=== PATIENT | female | born 1960 | race Caucasian/White ===

== ENCOUNTER 2016-11-20 13:04 | Emergency (ER) | payer MEDICAID ==
[~2016-11-20] VITALS: Ht 167.6 cm; Wt 56.7 kg
[2016-11-20 13:32] VITALS: BP 186/82
== END 2016-11-20 16:46 | disposition home or self-care (01) ==
LOC: EDBD 13:04 → ER 13:04
DX: S30.1XXA Contusion of abdominal wall, initial encounter (principal); S00.212A Abrasion of left eyelid and periocular area, initial encounter; J44.9 Chronic obstructive pulmonary disease, unspecified; I10 Essential (primary) hypertension; F17.210 Nicotine dependence, cigarettes, uncomplicated; F12.10 Cannabis abuse, uncomplicated; F10.10 Alcohol abuse, uncomplicated; Y08.89XA Assault by other specified means, initial encounter; Y93.89 Activity, other specified; Y99.8 Other external cause status; Y92.89 Other specified places as the place of occurrence of the external cause
CPT/HCPCS: 70486

== ENCOUNTER 2016-11-24 22:35 | Emergency (ER) | payer MEDICAID ==
[~2016-11-24] VITALS: Ht 172.7 cm; Wt 68.0 kg
[2016-11-24 22:38] VITALS: BP 172/94
== END 2016-11-25 00:15 | disposition left against medical advice (07) ==
LOC: ER 22:43
DX: M25.552 Pain in left hip (principal); Z53.21 Procedure and treatment not carried out due to patient leaving prior to being seen by health care provider; W57.XXXA Bitten or stung by nonvenomous insect and other nonvenomous arthropods, initial encounter; Y93.89 Activity, other specified; Y92.89 Other specified places as the place of occurrence of the external cause; Y99.8 Other external cause status

== ENCOUNTER 2016-11-25 07:19 | Emergency (ER) | payer MEDICAID ==
[~2016-11-25] VITALS: Ht 170.2 cm; Wt 61.2 kg
[2016-11-25 08:05] VITALS: BP 153/90
== END 2016-11-25 09:23 | disposition home or self-care (01) ==
LOC: ER 07:19
DX: D17.9 Benign lipomatous neoplasm, unspecified (principal); J44.9 Chronic obstructive pulmonary disease, unspecified; I10 Essential (primary) hypertension; F17.210 Nicotine dependence, cigarettes, uncomplicated; F12.10 Cannabis abuse, uncomplicated

== ENCOUNTER 2017-07-08 22:49 | Emergency (ER) | payer MEDICAID ==
[~2017-07-08] VITALS: Ht 160 cm; Wt 59.0 kg
[2017-07-08 23:03] VITALS: BP 143/89
== END 2017-07-09 06:33 | disposition left against medical advice (07) ==
LOC: EDBD 22:49 → ER 22:57
DX: F29 Unspecified psychosis not due to a substance or known physiological condition (principal); Z76.0 Encounter for issue of repeat prescription; Z53.21 Procedure and treatment not carried out due to patient leaving prior to being seen by health care provider

== ENCOUNTER 2018-07-23 17:57 | Emergency (ER) | payer MEDICAID ==
[~2018-07-23] VITALS: Ht 172.7 cm; Wt 68.0 kg
[2018-07-23 19:41] LABS: Basophils # (auto) 0 uL; Basophils % (auto) 0.3 % (0.0-2.0); Eosinophils # (auto) 0.1 uL; Eosinophils % (auto) 1.7 % (0.0-7.0); Hematocrit 44.8 % (36.0-46.0); Lymphocytes # (auto) 3.6 uL; Mean Corpuscular Hemoglobin 33.1 pg (28.0-32.0); Mean Corpuscular Hgb Conc. 33.5 g/dL (32.0-36.0); Mean Corpuscular Volume 98.7 fL (80.0-100.0); Monocytes # (auto) 0.3 uL; Monocytes % (auto) 5.8 % (0.0-12.0); Neutrophils # (auto) 1.8 uL; Neutrophils % (auto) 30.7 % (37.0-80.0); Nucleated Red Blood Cells % 0.2 %; Platelet Count (auto) 297 10^3/uL (140-450); Red Blood Cells 4.54 10^6/uL (4.0-5.20); Red Cell Distribution Width 13.8 % (11.8-14.3); White Blood Cell 5.9 10^3/uL (4.4-10.8)
[2018-07-23 19:49] LABS: Albumin 3.6 g/dL (3.4-5.0); Anion Gap 8 (5-15); Blood Urea Nitrogen 8 mg/dL (7-18); Calcium 8.5 mg/dL (8.5-10.1); Carbon Dioxide 26 mmol/L (21-32); Chloride 114 mmol/L (98-107); GFR African American 96 mL/min; GFR Non-African American 79 mL/min; Glucose 99 mg/dL (74-106); Potassium 3.8 mmol/L (3.5-5.1); Sodium 148 mmol/L (136-145)
[2018-07-23 19:54] LABS: Alanine Aminotransferase 22 U/L (13-56); Alkaline Phosphatase 119 U/L (45-117); Aspartate Aminotransferase 25 U/L (15-37); Bilirubin, Total 0.1 mg/dL (0.2-1.0); Total Protein 7.3 g/dL (6.4-8.2)
[2018-07-23 19:58] LABS: Lymphocytes % (auto) 61.5 % (10.0-50.0)
[2018-07-24 06:09] LABS: Urine Bacteria MANY /hpf (None Seen); Urine Blood Negative /uL (Negative); Urine Mucus FEW (None Seen); Urine Specific Gravity 1.018 (1.001-1.035); Urine WBC 71 /hpf (0 - 5); Urine WBC Clumps PRESENT /hpf (None Seen)
[2018-07-24 06:40] LABS: Amphetamine Screen, Urine POSITIVE (NEGATIVE); Barbiturate Scree,Urine NEGATIVE (NEGATIVE); Benzodiazephine Screen, Urine NEGATIVE (NEGATIVE); Cannabinoid Screen, Urine NEGATIVE (NEGATIVE); Cocaine Screen, Urine NEGATIVE (NEGATIVE); Opiate Scree,Urine NEGATIVE (NEGATIVE); Phencyclidine Screen, Urine NEGATIVE (NEGATIVE)
[2018-07-24] MEDS ORDERED: cefTRIAXone SOD 1,000 MG VL IM ONE (07:00)
[2018-07-24] MEDS ORDERED: LIDOCAINE 1% HCL (LOCAL ANESTH.) INJ 20ML MDV ONE (07:06)
[2018-07-24 07:39] VITALS: BP 136/72
== END 2018-07-24 08:42 | disposition home or self-care (01) ==
LOC: EDBD 17:57 → EDUNIT# 17:57 → ER 18:01
DX: N39.0 Urinary tract infection, site not specified (principal); H92.01 Otalgia, right ear; Z59.0 Homelessness
CPT/HCPCS: 36415; 80053; 80307; 81001; 84484; 85025; 96372; 99283; J0696; J2001

== ENCOUNTER 2018-07-25 18:10 | Emergency (ER) | payer MEDICAID ==
[~2018-07-25] VITALS: Ht 170.2 cm; Wt 61.2 kg
[2018-07-25] MEDS ORDERED: SODIUM CHLORIDE 0.9% 1,000 ML IV ONE (20:00)
[2018-07-25 20:18] LABS: Basophils # (auto) 0 uL; Basophils % (auto) 0.9 % (0.0-2.0); Eosinophils # (auto) 0.1 uL; Eosinophils % (auto) 1.4 % (0.0-7.0); Hematocrit 45.6 % (36.0-46.0); Hemoglobin 15.3 g/dL (12.2-16.2); Lymphocytes # (auto) 2.4 uL; Lymphocytes % (auto) 45.7 % (10.0-50.0); Mean Corpuscular Hgb Conc. 33.5 g/dL (32.0-36.0); Mean Corpuscular Volume 98.4 fL (80.0-100.0); Monocytes # (auto) 0.3 uL; Monocytes % (auto) 5.8 % (0.0-12.0); Neutrophils # (auto) 2.4 uL; Neutrophils % (auto) 46.2 % (37.0-80.0); Nucleated Red Blood Cells % 0.1 %; Platelet Count (auto) 246 10^3/uL (140-450); Red Blood Cells 4.64 10^6/uL (4.0-5.20); Red Cell Distribution Width 13.4 % (11.8-14.3); White Blood Cell 5.2 10^3/uL (4.4-10.8)
[2018-07-25 20:36] LABS: Alanine Aminotransferase 26 U/L (13-56); Albumin 3.8 g/dL (3.4-5.0); Anion Gap 8 (5-15); Aspartate Aminotransferase 32 U/L (15-37); Blood Urea Nitrogen 8 mg/dL (7-18); Calcium 8.7 mg/dL (8.5-10.1); Carbon Dioxide 27 mmol/L (21-32); Chloride 110 mmol/L (98-107); Glucose 86 mg/dL (74-106); Potassium 3.3 mmol/L (3.5-5.1); Sodium 145 mmol/L (136-145)
[2018-07-25 20:42] LABS: Alkaline Phosphatase 119 U/L (45-117); BUN/Creatinine Ratio 11.9; Bilirubin, Total 0.6 mg/dL (0.2-1.0); GFR African American 118 mL/min; GFR Non-African American 97 mL/min; Total Protein 7.4 g/dL (6.4-8.2)
[2018-07-25 21:03] LABS: Salicylate 1.8 mg/dL (2.8-20.0)
[2018-07-25 21:04] LABS: Acetaminophen < 2.0 ug/mL (10-30)
[2018-07-25 21:09] LABS: Urine Bacteria NONE SEEN /hpf (None Seen); Urine Blood Negative /uL (Negative); Urine Specific Gravity 1.017 (1.001-1.035); Urine WBC 9 /hpf (0 - 5)
[2018-07-25 21:49] LABS: Amphetamine Screen, Urine POSITIVE (NEGATIVE); Barbiturate Scree,Urine NEGATIVE (NEGATIVE); Benzodiazephine Screen, Urine NEGATIVE (NEGATIVE); Cannabinoid Screen, Urine NEGATIVE (NEGATIVE); Cocaine Screen, Urine NEGATIVE (NEGATIVE); Opiate Scree,Urine NEGATIVE (NEGATIVE); Phencyclidine Screen, Urine NEGATIVE (NEGATIVE)
[2018-07-26 03:10] VITALS: BP 132/74
[2018-07-26] MEDS ORDERED: MULTIPLE VITAMIN 10 ML, MAGNESIUM SULF SDV 50% 8 MEQ in SODIUM CHLORIDE 0.9% 1,000 ML IV SCH (12:00)
== END 2018-07-26 03:11 | disposition home or self-care (01) ==
LOC: EDUNIT# 18:10 → EDBD 18:10 → ER 18:16
DX: G92 Toxic encephalopathy (principal); R41.82 Altered mental status, unspecified; F10.129 Alcohol abuse with intoxication, unspecified; Y90.6 Blood alcohol level of 120-199 mg/100 ml; F15.10 Other stimulant abuse, uncomplicated
CPT/HCPCS: 36415; 70450; 71045; 80053; 80307; 80320; 80329; 81001; 83735; 84484; 85025; 93005; 94761; 96360; 99284; J7030

== ENCOUNTER 2018-07-30 07:33 | Emergency (ER) | payer MEDICAID ==
[~2018-07-30] VITALS: Ht 172.7 cm; Wt 70.3 kg
[2018-07-30 08:07] LABS: Basophils # (auto) 0.1 uL; Basophils % (auto) 0.9 % (0.0-2.0); Eosinophils # (auto) 0 uL; Eosinophils % (auto) 0.2 % (0.0-7.0); Hematocrit 46.1 % (36.0-46.0); Hemoglobin 15.8 g/dL (12.2-16.2); Lymphocytes # (auto) 1.7 uL; Lymphocytes % (auto) 11.8 % (10.0-50.0); Mean Corpuscular Hemoglobin 33.5 pg (28.0-32.0); Mean Corpuscular Hgb Conc. 34.2 g/dL (32.0-36.0); Mean Corpuscular Volume 97.8 fL (80.0-100.0); Monocytes # (auto) 0.8 uL; Monocytes % (auto) 5.9 % (0.0-12.0); Neutrophils # (auto) 11.8 uL; Neutrophils % (auto) 81.2 % (37.0-80.0); Nucleated Red Blood Cells % 0.1 %; Platelet Count (auto) 248 10^3/uL (140-450); Red Blood Cells 4.72 10^6/uL (4.0-5.20); Red Cell Distribution Width 13.7 % (11.8-14.3); White Blood Cell 14.5 10^3/uL (4.4-10.8)
[2018-07-30 08:26] LABS: Albumin 4.2 g/dL (3.4-5.0); Amylase 19 U/L (25-115); Anion Gap 13 (5-15); Blood Urea Nitrogen 14 mg/dL (7-18); Calcium 9.8 mg/dL (8.5-10.1); Carbon Dioxide 22 mmol/L (21-32); Chloride 105 mmol/L (98-107); Glucose 102 mg/dL (74-106); Lipase 62 U/L (73-393); Potassium 3.9 mmol/L (3.5-5.1); Sodium 140 mmol/L (136-145)
[2018-07-30 08:32] LABS: Alanine Aminotransferase 19 U/L (13-56); Alkaline Phosphatase 130 U/L (45-117); Aspartate Aminotransferase 25 U/L (15-37); BUN/Creatinine Ratio 17.5; Bilirubin, Total 1.4 mg/dL (0.2-1.0); GFR African American 96 mL/min; GFR Non-African American 79 mL/min; Total Protein 8.6 g/dL (6.4-8.2)
[2018-07-30] MEDS ORDERED: cefTRIAXone SOD 1,000 MG VL IM ONE (11:30)
[2018-07-30] MEDS ORDERED: PANTOPRAZOLE 40 MG TAB PO ONE (12:30)
[2018-07-30 12:36] VITALS: BP 135/77
[2018-07-30 12:46] LABS: Urine Bacteria FEW /hpf (None Seen); Urine Blood Negative /uL (Negative); Urine Mucus FEW (None Seen); Urine Specific Gravity 1.028 (1.001-1.035); Urine WBC 1 /hpf (0 - 5)
== END 2018-07-30 13:51 | disposition home or self-care (01) ==
LOC: EDUNIT# 07:33 → EDBD 07:33 → ER 07:37
DX: J40 Bronchitis, not specified as acute or chronic (principal); K92.0 Hematemesis
CPT/HCPCS: 36415; 71046; 80053; 81001; 82150; 83690; 84484; 85025; 93005; 96372; 99284; J0696

== ENCOUNTER 2018-09-14 10:50 | Emergency (ER) | payer MEDICAID ==
[~2018-09-14] VITALS: Ht 170.2 cm; Wt 69.4 kg
[2018-09-14 11:25] VITALS: BP 132/90
[2018-09-14] MEDS ORDERED: LIDOCAINE 1% HCL (LOCAL ANESTH.) INJ 20ML MDV ONE (11:43)
[2018-09-14] MEDS ORDERED: BACITRACIN TOP OINT 1 UD PKG TOP ONE (11:45)
[2018-09-14] MEDS ORDERED: LIDOCAINE 1% (LOCAL ANESTH.) PF 5ml SDV ID ONE (11:45)
[2018-09-14] MEDS ORDERED: TETANUS-DIPTH-ACEL PERTUSSIS 0.5ML SYRG IM ONE (12:00)
== END 2018-09-14 12:38 | disposition home or self-care (01) ==
LOC: ER 10:56
DX: S61.212A Laceration without foreign body of right middle finger without damage to nail, initial encounter (principal); F17.210 Nicotine dependence, cigarettes, uncomplicated; Z59.0 Homelessness; W25.XXXA Contact with sharp glass, initial encounter; Y93.89 Activity, other specified; Y92.89 Other specified places as the place of occurrence of the external cause; Y99.8 Other external cause status
CPT/HCPCS: 12001; 73140; 90471; 90715; 99283; J2001

== ENCOUNTER 2019-01-23 12:45 | Emergency (ER) | payer MEDICAID ==
[~2019-01-23] VITALS: Ht 172.7 cm; Wt 70.3 kg
[2019-01-23 13:30] VITALS: BP 121/85
== END 2019-01-23 15:39 | disposition home or self-care (01) ==
LOC: ER 12:51
DX: S82.832D Other fracture of upper and lower end of left fibula, subsequent encounter for closed fracture with routine healing (principal); F17.210 Nicotine dependence, cigarettes, uncomplicated; Z59.0 Homelessness; X58.XXXD Exposure to other specified factors, subsequent encounter
CPT/HCPCS: 29505

== ENCOUNTER 2019-10-30 14:58 | Emergency (ER) | payer MEDICAID ==
[~2019-10-30] VITALS: Ht 172.7 cm; Wt 68.0 kg
[2019-10-30 15:03] VITALS: BP 121/75
[2019-10-30] MEDS ORDERED: SODIUM CHLORIDE 0.9% 1,000 ML IV ONE (16:45)
== END 2019-10-31 00:32 | disposition home or self-care (01) ==
LOC: EDBD 14:58 → ER 14:58
DX: E86.0 Dehydration (principal); R05 Cough
CPT/HCPCS: 70450; 74018; 93005; 96360; 99284; J7030

== ENCOUNTER 2020-01-05 05:33 | Emergency (ER) | payer MEDICAID ==
[~2020-01-05] VITALS: Ht 170.2 cm; Wt 81.6 kg
[2020-01-05 06:36] LABS: Basophils # (auto) 0.1 10 ^3/uL (0-0.2); Eosinophils # (auto) 0 10 ^3/uL (0-0.8); Eosinophils % (auto) 0.1 % (0.0-7.0); Hematocrit 38.1 % (36.0-46.0); Hemoglobin 12.9 g/dL (12.2-16.2); Lymphocytes # (auto) 1.2 10 ^3/uL (0.4-5.4); Lymphocytes % (auto) 14.4 % (10.0-50.0); Mean Corpuscular Hemoglobin 33.7 pg (28.0-32.0); Mean Corpuscular Hgb Conc. 33.7 g/dL (32.0-36.0); Mean Corpuscular Volume 99.9 fL (80.0-100.0); Monocytes # (auto) 0.9 10 ^3/uL (0-1.3); Monocytes % (auto) 11.4 % (0.0-12.0); Neutrophils # (auto) 6.1 10 ^3/uL (1.6-8.6); Neutrophils % (auto) 73.1 % (37.0-80.0); Platelet Count (auto) 216 10^3/uL (140-450); Red Blood Cells 3.81 10^6/uL (4.0-5.20); Red Cell Distribution Width 13.5 % (11.8-14.3); White Blood Cell 8.3 10^3/uL (4.4-10.8)
[2020-01-05 06:58] LABS: Potassium 3.1 mmol/L (3.5-5.1)
[2020-01-05 07:02] LABS: BUN/Creatinine Ratio 17.1; Bilirubin, Total 1.3 mg/dL (0.2-1.0); Total Protein 6.7 g/dL (6.4-8.2)
[2020-01-05] MEDS ORDERED: POTASSIUM EFFERVESENT TAB 25 MEQ PO ONE (07:45)
[2020-01-05] MEDS ORDERED: IBUPROFEN 800 MG TAB PO ONE (08:00)
[2020-01-05 09:28] VITALS: BP 115/84
== END 2020-01-05 10:02 | disposition home or self-care (01) ==
LOC: ER 05:33 → EDBD 05:33 → ER 10:02
DX: F15.10 Other stimulant abuse, uncomplicated (principal); E86.0 Dehydration; F17.210 Nicotine dependence, cigarettes, uncomplicated; Z20.828 Contact with and (suspected) exposure to other viral communicable diseases
CPT/HCPCS: 36415; 71045; 80053; 85025; 87426; 99284; C9803; U0003

== ENCOUNTER 2020-12-26 22:54 | Emergency (ER) | payer MEDICAID ==
[~2020-12-26] VITALS: Ht 175.3 cm; Wt 68.0 kg
[2020-12-26] MEDS ORDERED: SODIUM CHLORIDE 0.9% 1,000 ML IV ONE (23:45)
[2020-12-26] MEDS ORDERED: fentaNYL CITRATE 100 MCG/2 ML VL IV ONE (23:45)
[2020-12-26] MEDS ORDERED: ONDANSETRON HCL 4 MG/2 ML VIAL IV ONE (23:45)
[2020-12-27 00:09] LABS: Basophils # (auto) 0.1 10 ^3/uL (0-0.2); Nucleated Red Blood Cells % 0.1 %
[2020-12-27 00:11] LABS: Basophils % (auto) 0.8 % (0.0-2.0); Eosinophils # (auto) 0.1 10 ^3/uL (0-0.8); Hematocrit 48.6 % (36.0-46.0); Lymphocytes # (auto) 2.8 10 ^3/uL (0.4-5.4); Lymphocytes % (auto) 35.5 % (10.0-50.0); Mean Corpuscular Hemoglobin 35.5 pg (28.0-32.0); Mean Corpuscular Hgb Conc. 34.9 g/dL (32.0-36.0); Mean Corpuscular Volume 101.7 fL (80.0-100.0); Monocytes # (auto) 0.5 10 ^3/uL (0-1.3); Monocytes % (auto) 6.6 % (0.0-12.0); Neutrophils # (auto) 4.4 10 ^3/uL (1.6-8.6); Neutrophils % (auto) 56.1 % (37.0-80.0); Red Blood Cells 4.77 10^6/uL (4.0-5.20); Red Cell Distribution Width 14.7 % (11.8-14.3); White Blood Cell 7.9 10^3/uL (4.4-10.8)
[2020-12-27 00:25] LABS: Albumin 3.8 g/dL (3.4-5.0); BUN/Creatinine Ratio 16.7; Calcium 8.8 mg/dL (8.5-10.1); Potassium 3.3 mmol/L (3.5-5.1)
[2020-12-27 00:27] LABS: Bilirubin, Total 0.8 mg/dL (0.2-1.0); Total Protein 7.8 g/dL (6.4-8.2)
[2020-12-27] MEDS ORDERED: fentaNYL CITRATE 100 MCG/2 ML VL IV ONE (04:15)
[2020-12-27] MEDS ORDERED: ONDANSETRON HCL 4 MG/2 ML VIAL ONE (07:21)
[2020-12-27 07:24] VITALS: BP 128/83
[2020-12-27] MEDS ORDERED: ONDANSETRON HCL 4 MG/2 ML VIAL IV ONE (07:30)
== END 2020-12-27 08:41 | disposition home or self-care (01) ==
LOC: ER 22:54 → EDBD 22:54 → ER 12-27 08:41
DX: S82.491A Other fracture of shaft of right fibula, initial encounter for closed fracture (principal); M25.511 Pain in right shoulder; M25.521 Pain in right elbow; M79.601 Pain in right arm; F17.210 Nicotine dependence, cigarettes, uncomplicated; Z59.0 Homelessness; V89.2XXA Person injured in unspecified motor-vehicle accident, traffic, initial encounter; Y93.89 Activity, other specified; Y92.89 Other specified places as the place of occurrence of the external cause; Y99.8 Other external cause status
CPT/HCPCS: 36415; 71045; 72170; 73060; 73090; 73552; 73590; 73600; 80053; 80320; 85025; 86850; 86900; 86901; 96361; 96374; 96375; 96376; 99285; J2405; J3010; J7030

== ENCOUNTER 2021-07-18 14:40 | Emergency (ER) | payer MEDICAID ==
[~2021-07-18] VITALS: Ht 172.7 cm; Wt 90.7 kg
[2021-07-18] MEDS ORDERED: KETOROLAC TROMETH 60MG/2ML VIAL IM ONE (16:45)
[2021-07-18 19:31] VITALS: BP 143/93
[2021-07-19] MEDS ORDERED: IBUP800T27 PO (08:00)
[2021-07-19] MEDS ORDERED: MELO7.5T9 PO (08:03)
== END 2021-07-18 19:33 | disposition home or self-care (01) ==
LOC: EDBD 14:40 → ER 14:40
DX: S96.911A Strain of unspecified muscle and tendon at ankle and foot level, right foot, initial encounter (principal); F17.210 Nicotine dependence, cigarettes, uncomplicated; Z88.5 Allergy status to narcotic agent; Z88.8 Allergy status to other drugs, medicaments and biological substances; X58.XXXA Exposure to other specified factors, initial encounter; Y93.89 Activity, other specified; Y92.89 Other specified places as the place of occurrence of the external cause; Y99.8 Other external cause status
CPT/HCPCS: 96372; 99283; J1885

== ENCOUNTER 2021-07-19 05:32 | Emergency (ER) | payer MEDICAID ==
[~2021-07-19] VITALS: Ht 172.7 cm; Wt 70.8 kg
[2021-07-19 05:35] VITALS: BP 123/78
[2021-07-19] MEDS ORDERED: HYDROcodone-ACET 5/325MG TAB PO ONE (08:00)
[2021-07-19] MEDS ORDERED: IBUP800T27 PO (08:00)
[2021-07-19] MEDS ORDERED: MELO7.5T9 PO (08:03)
== END 2021-07-19 08:16 | disposition home or self-care (01) ==
LOC: ER 05:32
DX: S93.401A Sprain of unspecified ligament of right ankle, initial encounter (principal); F17.210 Nicotine dependence, cigarettes, uncomplicated; F15.10 Other stimulant abuse, uncomplicated; Z59.00 Homelessness unspecified; X58.XXXA Exposure to other specified factors, initial encounter; Y93.89 Activity, other specified; Y92.89 Other specified places as the place of occurrence of the external cause; Y99.8 Other external cause status
CPT/HCPCS: 73610

== ENCOUNTER 2022-03-21 13:19 | Inpatient (IN) | payer MEDICAID ==
[~2022-03-21] VITALS: Ht 170.2 cm; Wt 75.0 kg
[~2022-03-21 13:19] MED LIST: MELO7.5T9 PO
[2022-03-21 16:38] LABS: Basophils # (auto) 0 10 ^3/uL (0-0.2); Basophils % (auto) 0.4 % (0.0-2.0); Eosinophils # (auto) 0 10 ^3/uL (0-0.8); Eosinophils % (auto) 0.5 % (0.0-7.0); Hematocrit 50.2 % (36.0-46.0); Hemoglobin 17.3 g/dL (12.2-16.2); Lymphocytes # (auto) 1.3 10 ^3/uL (0.4-5.4); Lymphocytes % (auto) 22.2 % (10.0-50.0); Mean Corpuscular Hemoglobin 33.8 pg (28.0-32.0); Mean Corpuscular Hgb Conc. 34.3 g/dL (32.0-36.0); Mean Corpuscular Volume 98.5 fL (80.0-100.0); Monocytes # (auto) 0.4 10 ^3/uL (0-1.3); Monocytes % (auto) 7.5 % (0.0-12.0); Neutrophils # (auto) 4.1 10 ^3/uL (1.6-8.6); Neutrophils % (auto) 69.4 % (37.0-80.0); Nucleated Red Blood Cells % 0.2 %; Red Cell Distribution Width 14.6 % (11.8-14.3); White Blood Cell 5.9 10^3/uL (4.4-10.8)
[2022-03-21 16:54] LABS: Albumin 3.3 g/dL (3.4-5.0); Calcium 8.2 mg/dL (8.5-10.1); Magnesium 1.5 mg/dL (1.6-2.6); Potassium 3.1 mmol/L (3.5-5.1)
[2022-03-21 17:03] LABS: BUN/Creatinine Ratio 18.7; Bilirubin, Total 1.1 mg/dL (0.2-1.0); CRP High Sensitivity 11.8 mg/dL (< 0.3); Total Protein 6.7 g/dL (6.4-8.2)
[2022-03-21] MEDS ORDERED: ASPirin 325 MG TAB PO ONE (18:45)
[2022-03-21] MEDS ORDERED: SODIUM CHLORIDE 0.9% 500 ML IV ONE (18:45)
[2022-03-21] MEDS ORDERED: MIDAZOLAM HCL 2MG/2ML 2ml VIAL (1mg/ml) ONE (19:09)
[2022-03-21] MEDS ORDERED: SODIUM CHL 0.9% 50 ML ONE (19:09)
[2022-03-21] MEDS ORDERED: ANGIOMAX 250 MG VIAL IV ONE (19:09)
[2022-03-21] MEDS ORDERED: fentaNYL CITRATE 100 MCG/2 ML VL ONE (19:09)
[2022-03-21] MEDS ORDERED: LIDOCAINE 2%HCL (LOCAL ANESTH.) INJ 20ML MDV ONE (19:09)
[2022-03-21] MEDS ORDERED: MORPHINE SULFATE INJ 2 MG/ml SYRG IV PRN (20:00)
[2022-03-21] MEDS ORDERED: NITROGLYCERIN 0.4 MG SL TAB SL PRN (20:00)
[2022-03-21 21:56] LABS: BUN/Creatinine Ratio 16.2; Calcium 7.8 mg/dL (8.5-10.1); Potassium 3.2 mmol/L (3.5-5.1)
[2022-03-21] MEDS ORDERED: ATORVASTATIN 20 MG TAB PO SCH (22:00)
[2022-03-22 05:00] VITALS: BP 105/66
[2022-03-22] MEDS ORDERED: HYDR-4902 PO (08:09)
[2022-03-22 09:00] VITALS: BP 98/60
[2022-03-22 09:13] VITALS: BP 98/60
[2022-03-22] MEDS ORDERED: POTASSIUM CHL 20 Meq TABLET PO ONE (09:45)
[2022-03-22] MEDS ORDERED: METOPROLOL TARTRATE 25 MG TAB PO SCH (10:00)
[2022-03-22] MEDS: THIAMINE HCL 100 MG TAB PO SCH (11:34)
[2022-03-22] MEDS: MULTIPLE VITAMIN TAB PO SCH (11:36)
[2022-03-22] MEDS: PANTOPRAZOLE 40 MG TAB PO SCH (11:36)
[2022-03-22] MEDS: SODIUM CHLORIDE 0.9% 1,000 ML IV SCH ×2 (11:47→23:05)
[2022-03-22] MEDS: KETOROLAC TROMETH 30 MG/ML 1ML VIAL IV PRN (11:48)
[2022-03-22 12:30] VITALS: BP 102/70
[2022-03-22] MEDS: traMADol HCL 50 MG TAB PO PRN (16:18)
[2022-03-22 17:00] VITALS: BP 91/63
[2022-03-22 19:52] LABS: Urine Bacteria MOD /hpf (None Seen); Urine Blood TRACE /uL (Negative); Urine Hyaline Cast FEW /lpf (0 - 2); Urine Mucus FEW (None Seen); Urine Specific Gravity 1.031 (1.001-1.035); Urine WBC 85 /hpf (0 - 5)
[2022-03-22 19:55] LABS: Alcohol, Urine < 3.0 mg/dL (0-10); Amphetamine Screen, Urine POSITIVE (NEGATIVE); Barbiturate Scree,Urine NEGATIVE (NEGATIVE); Benzodiazephine Screen, Urine POSITIVE (NEGATIVE); Cannabinoid Screen, Urine NEGATIVE (NEGATIVE); Cocaine Screen, Urine NEGATIVE (NEGATIVE); Opiate Scree,Urine NEGATIVE (NEGATIVE); Phencyclidine Screen, Urine NEGATIVE (NEGATIVE)
[2022-03-22 21:19] VITALS: BP 105/71
[2022-03-23 04:26] VITALS: BP 93/54
[2022-03-23 05:11] LABS: Basophils # (auto) 0 10 ^3/uL (0-0.2); Basophils % (auto) 0.4 % (0.0-2.0); Eosinophils # (auto) 0.1 10 ^3/uL (0-0.8); Eosinophils % (auto) 1.3 % (0.0-7.0); Hematocrit 41.3 % (36.0-46.0); Hemoglobin 13.9 g/dL (12.2-16.2); Lymphocytes # (auto) 1.9 10 ^3/uL (0.4-5.4); Lymphocytes % (auto) 40.7 % (10.0-50.0); Mean Corpuscular Hemoglobin 33.5 pg (28.0-32.0); Mean Corpuscular Hgb Conc. 33.5 g/dL (32.0-36.0); Mean Corpuscular Volume 99.8 fL (80.0-100.0); Monocytes # (auto) 0.4 10 ^3/uL (0-1.3); Monocytes % (auto) 9.6 % (0.0-12.0); Neutrophils # (auto) 2.2 10 ^3/uL (1.6-8.6); Red Blood Cells 4.14 10^6/uL (4.0-5.20); Red Cell Distribution Width 14.6 % (11.8-14.3); White Blood Cell 4.7 10^3/uL (4.4-10.8)
[2022-03-23 05:29] LABS: Albumin 2.5 g/dL (3.4-5.0); Potassium 3.6 mmol/L (3.5-5.1)
[2022-03-23 05:34] LABS: BUN/Creatinine Ratio 17.5; Bilirubin, Total 0.6 mg/dL (0.2-1.0); Total Protein 5.5 g/dL (6.4-8.2)
[2022-03-23 08:00] VITALS: BP 101/61
[2022-03-23] MEDS: MULTIPLE VITAMIN TAB PO SCH (09:34)
[2022-03-23] MEDS: THIAMINE HCL 100 MG TAB PO SCH (09:34)
[2022-03-23] MEDS: PANTOPRAZOLE 40 MG TAB PO SCH (09:35)
[2022-03-23] MEDS: SODIUM CHLORIDE 0.9% 1,000 ML IV SCH (09:44)
[2022-03-23] MEDS ORDERED: ENOXAPARIN SOD 80 MG/0.8ML SYRINGE SC SCH (10:00)
[2022-03-23] MEDS ORDERED: cefTRIAXone 1GM/50ML D5W 50 ML IV ONE (10:15)
[2022-03-23 12:00] VITALS: BP 94/52
[2022-03-23] MEDS ORDERED: IOHEXOL 350 MG/ML 100ML IJ ONE (12:02)
[2022-03-23 16:00] VITALS: BP 106/67
[2022-03-23] MEDS: traMADol HCL 50 MG TAB PO PRN (18:48)
[2022-03-23] MEDS: KETOROLAC TROMETH 30 MG/ML 1ML VIAL IV PRN (21:34)
[2022-03-23 21:46] VITALS: BP 115/68
[2022-03-23 21:49] VITALS: BP 115/68
[2022-03-24] MEDS: SODIUM CHLORIDE 0.9% 1,000 ML IV SCH ×2 (01:45→15:15)
[2022-03-24 05:26] VITALS: BP 129/99
[2022-03-24] MEDS: PANTOPRAZOLE 40 MG TAB PO SCH (09:05)
[2022-03-24] MEDS: traMADol HCL 50 MG TAB PO PRN (09:05)
[2022-03-24] MEDS: MULTIPLE VITAMIN TAB PO SCH (09:05)
[2022-03-24] MEDS: THIAMINE HCL 100 MG TAB PO SCH (09:05)
[2022-03-24] MEDS: cefTRIAXone 1GM/50ML D5W 50 ML IV SCH (09:06)
[2022-03-24 09:57] LABS: Basophils # (auto) 0 10 ^3/uL (0-0.2); Basophils % (auto) 0.4 % (0.0-2.0); Eosinophils # (auto) 0 10 ^3/uL (0-0.8); Eosinophils % (auto) 0.8 % (0.0-7.0); Hematocrit 40.7 % (36.0-46.0); Hemoglobin 13.5 g/dL (12.2-16.2); Lymphocytes # (auto) 1.8 10 ^3/uL (0.4-5.4); Lymphocytes % (auto) 29.1 % (10.0-50.0); Mean Corpuscular Hemoglobin 33.6 pg (28.0-32.0); Mean Corpuscular Hgb Conc. 33.2 g/dL (32.0-36.0); Monocytes # (auto) 0.5 10 ^3/uL (0-1.3); Neutrophils # (auto) 3.8 10 ^3/uL (1.6-8.6); Neutrophils % (auto) 61.7 % (37.0-80.0); Nucleated Red Blood Cells % 0.1 %; Red Blood Cells 4.04 10^6/uL (4.0-5.20); Red Cell Distribution Width 14.4 % (11.8-14.3); White Blood Cell 6.1 10^3/uL (4.4-10.8)
[2022-03-24] MEDS ORDERED: LORazepam 2MG/ML-1ML VIAL IV PRN (10:00)
[2022-03-24 10:24] LABS: Calcium 7.9 mg/dL (8.5-10.1); Potassium 3.7 mmol/L (3.5-5.1)
[2022-03-24 11:55] VITALS: BP 143/105
[2022-03-24 12:54] VITALS: BP 155/104
[2022-03-24] MEDS: IBUPROFEN 600 MG TAB PO SCH ×2 (13:28→22:00)
[2022-03-24 16:35] VITALS: BP 102/48
[2022-03-24 21:59] VITALS: BP 138/101
[2022-03-25] MEDS: LORazepam 2MG/ML-1ML VIAL IV PRN ×2 (00:14→06:07)
[2022-03-25] MEDS: SODIUM CHLORIDE 0.9% 1,000 ML IV SCH ×2 (04:25→17:11)
[2022-03-25] MEDS: IBUPROFEN 600 MG TAB PO SCH ×3 (06:00→21:19)
[2022-03-25 07:05] LABS: Basophils # (auto) 0 10 ^3/uL (0-0.2); Basophils % (auto) 0.4 % (0.0-2.0); Eosinophils # (auto) 0 10 ^3/uL (0-0.8); Eosinophils % (auto) 0.5 % (0.0-7.0); Hematocrit 41.3 % (36.0-46.0); Hemoglobin 14.4 g/dL (12.2-16.2); Lymphocytes # (auto) 1.6 10 ^3/uL (0.4-5.4); Lymphocytes % (auto) 20.8 % (10.0-50.0); Mean Corpuscular Hemoglobin 34.1 pg (28.0-32.0); Mean Corpuscular Hgb Conc. 34.9 g/dL (32.0-36.0); Mean Corpuscular Volume 97.8 fL (80.0-100.0); Monocytes # (auto) 0.8 10 ^3/uL (0-1.3); Monocytes % (auto) 10.6 % (0.0-12.0); Neutrophils # (auto) 5.1 10 ^3/uL (1.6-8.6); Neutrophils % (auto) 67.7 % (37.0-80.0); Red Blood Cells 4.22 10^6/uL (4.0-5.20); Red Cell Distribution Width 14.5 % (11.8-14.3); White Blood Cell 7.6 10^3/uL (4.4-10.8)
[2022-03-25 07:23] LABS: BUN/Creatinine Ratio 11.8; Potassium 3.8 mmol/L (3.5-5.1)
[2022-03-25] MEDS ORDERED: IBUPROFEN 600 MG TAB PO PRN (09:30)
[2022-03-25] MEDS: THIAMINE HCL 100 MG TAB PO SCH (10:45)
[2022-03-25] MEDS: MULTIPLE VITAMIN TAB PO SCH (10:45)
[2022-03-25] MEDS: PANTOPRAZOLE 40 MG TAB PO SCH (10:45)
[2022-03-25] MEDS: cefTRIAXone 1GM/50ML D5W 50 ML IV SCH (10:45)
[2022-03-25 13:10] VITALS: BP 147/111
[2022-03-25] MEDS: traMADol HCL 50 MG TAB PO PRN (13:26)
[2022-03-25 17:08] VITALS: BP 144/103
[2022-03-25 21:36] VITALS: BP 126/84
[2022-03-26 04:46] VITALS: BP 120/80
[2022-03-26] MEDS: IBUPROFEN 600 MG TAB PO SCH ×2 (06:00→14:00)
[2022-03-26] MEDS: traMADol HCL 50 MG TAB PO PRN (06:29)
[2022-03-26] MEDS: SODIUM CHLORIDE 0.9% 1,000 ML IV SCH (07:05)
[2022-03-26 08:00] VITALS: BP 124/89
[2022-03-26] MEDS: THIAMINE HCL 100 MG TAB PO SCH (08:43)
[2022-03-26] MEDS: PANTOPRAZOLE 40 MG TAB PO SCH (08:43)
[2022-03-26] MEDS: cefTRIAXone 1GM/50ML D5W 50 ML IV SCH (08:43)
[2022-03-26] MEDS: MULTIPLE VITAMIN TAB PO SCH (08:43)
[2022-03-26] MEDS ORDERED: PANT40T PO (10:50)
[2022-03-26] MEDS ORDERED: IBU600T PO (10:50)
[2022-03-26] MEDS ORDERED: MULTTAB99 PO (10:50)
[2022-03-26] MEDS ORDERED: LEVO500T31 PO (10:50)
[2022-03-26] MEDS ORDERED: traMADol HCL 50 MG TAB PO ONE (11:00)
[2022-03-26 12:00] VITALS: BP 117/78
[2022-03-26 14:36] VITALS: BP 124/89
== END 2022-03-26 17:00 | disposition home or self-care (01) | DRG 190 ==
LOC: ER 13:19 → EDBD 13:19 → EDUNIT# 13:19 → TELE 20:03 → TELE-CENTR 20:50
PROVIDERS: ADMIT Specialist; ATTEND Internal Medicine
PROC: 4A023N8 Measurement of Cardiac Sampling and Pressure, Bilateral, Percutaneous Approach (ICD-10-PCS; principal; 2022-03-21)
PROC: B2111ZZ Fluoroscopy of Multiple Coronary Arteries using Low Osmolar Contrast (ICD-10-PCS; 2022-03-21)
PROC: B2151ZZ Fluoroscopy of Left Heart using Low Osmolar Contrast (ICD-10-PCS; 2022-03-21)
DX: I21.3 ST elevation (STEMI) myocardial infarction of unspecified site (principal); N17.0 Acute kidney failure with tubular necrosis; I31.9 Disease of pericardium, unspecified; F20.9 Schizophrenia, unspecified; K44.9 Diaphragmatic hernia without obstruction or gangrene; N39.0 Urinary tract infection, site not specified; J44.9 Chronic obstructive pulmonary disease, unspecified; F41.9 Anxiety disorder, unspecified; R31.9 Hematuria, unspecified; F15.10 Other stimulant abuse, uncomplicated; R79.89 Other specified abnormal findings of blood chemistry; F17.210 Nicotine dependence, cigarettes, uncomplicated; N18.30 Chronic kidney disease, stage 3 unspecified; Z71.6 Tobacco abuse counseling; Z59.00 Homelessness unspecified; Z79.899 Other long term (current) drug therapy; Z88.5 Allergy status to narcotic agent; Z88.1 Allergy status to other antibiotic agents
CPT/HCPCS: 36415; 36600; 71045; 71275; 74176; 80048; 80053; 80307; 81001; 82550; 82805; 83605; 83690; 83735; 83880; 84484; 85025; 86141; 87086; 93005; 93306; 93460; 97163; 99152; 99153; C1751; G0378; J0696; J1885; J2250

== ENCOUNTER 2022-09-26 02:51 | Emergency (ER) | payer MEDICAID ==
[~2022-09-26] VITALS: Ht 172.7 cm; Wt 73.6 kg
[~2022-09-26 02:51] MED LIST changes: +AMOX875T3 PO; +HYDR-4902 PO; +IBU600T PO; +LEVO500T31 PO; +MULTTAB99 PO; +PANT40T PO
[2022-09-26 04:27] LABS: Basophils # (auto) 0 10 ^3/uL (0-0.2); Eosinophils # (auto) 0.1 10 ^3/uL (0-0.8); Hemoglobin 14.1 g/dL (12.2-16.2); Lymphocytes # (auto) 1.8 10 ^3/uL (0.4-5.4); Lymphocytes % (auto) 31.9 % (10.0-50.0); Mean Corpuscular Hemoglobin 34.5 pg (28.0-32.0); Monocytes # (auto) 0.5 10 ^3/uL (0-1.3); Neutrophils # (auto) 3.1 10 ^3/uL (1.6-8.6); White Blood Cell 5.5 10^3/uL (4.4-10.8)
[2022-09-26 04:30] LABS: Basophils % (auto) 0.6 % (0.0-2.0); Eosinophils % (auto) 1.7 % (0.0-7.0); Mean Corpuscular Hgb Conc. 34.4 g/dL (32.0-36.0); Mean Corpuscular Volume 100.4 fL (80.0-100.0); Monocytes % (auto) 8.7 % (0.0-12.0); Neutrophils % (auto) 57.1 % (37.0-80.0); Nucleated Red Blood Cells % 0.1 %; Red Blood Cells 4.08 10^6/uL (4.0-5.20); Red Cell Distribution Width 14.9 % (11.8-14.3)
[2022-09-26 04:40] LABS: Albumin 3.4 g/dL (3.4-5.0); Calcium 8.4 mg/dL (8.5-10.1); Potassium 3.7 mmol/L (3.5-5.1)
[2022-09-26 04:44] LABS: Bilirubin, Total 0.5 mg/dL (0.2-1.0); Total Protein 6.5 g/dL (6.4-8.2)
[2022-09-26 07:44] VITALS: BP 171/123
[2022-09-26 08:19] LABS: Urine Bacteria NONE SEEN /hpf (None Seen); Urine Blood Negative /uL (Negative); Urine Specific Gravity 1.018 (1.001-1.035); Urine WBC 1 /hpf (0 - 5)
[2022-09-26] MEDS: KETOROLAC TROMETH 30 MG/ML 1ML VIAL IM ONE (08:40)
== END 2022-09-26 10:23 | disposition home or self-care (01) ==
LOC: ER 02:51
DX: M54.59 Other low back pain (principal); F17.210 Nicotine dependence, cigarettes, uncomplicated; F15.10 Other stimulant abuse, uncomplicated; F10.20 Alcohol dependence, uncomplicated; F41.9 Anxiety disorder, unspecified; F20.9 Schizophrenia, unspecified; Z59.00 Homelessness unspecified; Z98.890 Other specified postprocedural states; Z88.5 Allergy status to narcotic agent; Z88.8 Allergy status to other drugs, medicaments and biological substances; Y90.9 Presence of alcohol in blood, level not specified
CPT/HCPCS: 36415; 74176; 80053; 81001; 83690; 85025; 93005; 96372; 99285; J1885

== ENCOUNTER 2022-11-08 20:50 | Emergency (ER) | payer MEDICAID ==
[~2022-11-08] VITALS: Ht 172.7 cm; Wt 73.2 kg
[2022-11-09] MEDS ORDERED: HYDROcodone-ACET 10/325MG TAB PO ONE (00:30)
[2022-11-09] MEDS ORDERED: HYDR-4798 PO (00:32)
[2022-11-09] MEDS ORDERED: CLIN-203 PO (00:32)
[2022-11-09 00:55] VITALS: BP 123/75
[2022-11-09] MEDS ORDERED: IBUP-1455 PO (22:44)
== END 2022-11-09 01:04 | disposition home or self-care (01) ==
LOC: ER 20:52
DX: H92.01 Otalgia, right ear (principal); R51.9 Headache, unspecified; F17.210 Nicotine dependence, cigarettes, uncomplicated; F15.10 Other stimulant abuse, uncomplicated; J44.9 Chronic obstructive pulmonary disease, unspecified; F41.9 Anxiety disorder, unspecified; F20.9 Schizophrenia, unspecified; Z59.00 Homelessness unspecified; Z88.6 Allergy status to analgesic agent; Z88.1 Allergy status to other antibiotic agents
CPT/HCPCS: 70450; 70486

== ENCOUNTER 2022-11-09 15:58 | Emergency (ER) | payer MEDICAID ==
[~2022-11-09] VITALS: Ht 167.6 cm; Wt 68.1 kg
[~2022-11-09 15:58] MED LIST changes: +CLIN-203 PO; +HYDR-4798 PO
[2022-11-09 16:59] LABS: Basophils # (auto) 0 10 ^3/uL (0-0.2); Basophils % (auto) 0.7 % (0.0-2.0); Eosinophils # (auto) 0.1 10 ^3/uL (0-0.8); Eosinophils % (auto) 1.3 % (0.0-7.0); Hematocrit 37.4 % (36.0-46.0); Hemoglobin 12.7 g/dL (12.2-16.2); Lymphocytes # (auto) 2.3 10 ^3/uL (0.4-5.4); Lymphocytes % (auto) 30.9 % (10.0-50.0); Mean Corpuscular Hemoglobin 33.6 pg (28.0-32.0); Mean Corpuscular Hgb Conc. 33.9 g/dL (32.0-36.0); Mean Corpuscular Volume 98.9 fL (80.0-100.0); Monocytes # (auto) 0.6 10 ^3/uL (0-1.3); Monocytes % (auto) 7.5 % (0.0-12.0); Neutrophils # (auto) 4.4 10 ^3/uL (1.6-8.6); Neutrophils % (auto) 59.6 % (37.0-80.0); Red Blood Cells 3.78 10^6/uL (4.0-5.20); Red Cell Distribution Width 13.7 % (11.8-14.3); White Blood Cell 7.3 10^3/uL (4.4-10.8)
[2022-11-09 18:00] LABS: Albumin 3.2 g/dL (3.4-5.0); Calcium 8.4 mg/dL (8.5-10.1)
[2022-11-09 18:04] LABS: BUN/Creatinine Ratio 21.5 (10.0-20.0); Bilirubin, Total 0.4 mg/dL (0.2-1.0); Total Protein 6.1 g/dL (6.4-8.2)
[2022-11-09 21:42] VITALS: BP 131/89
[2022-11-09 22:03] LABS: Urine Bacteria NONE SEEN /hpf (None Seen); Urine Blood Negative /uL (Negative); Urine Specific Gravity 1.024 (1.001-1.035); Urine WBC <1 /hpf (0 - 5)
[2022-11-09 22:20] LABS: Alcohol, Urine < 3.0 mg/dL (0-10); Amphetamine Screen, Urine NEGATIVE (NEGATIVE); Barbiturate Scree,Urine NEGATIVE (NEGATIVE); Benzodiazephine Screen, Urine NEGATIVE (NEGATIVE); Cannabinoid Screen, Urine NEGATIVE (NEGATIVE); Cocaine Screen, Urine NEGATIVE (NEGATIVE); Opiate Scree,Urine NEGATIVE (NEGATIVE); Phencyclidine Screen, Urine NEGATIVE (NEGATIVE)
[2022-11-09] MEDS ORDERED: IBUP-1455 PO (22:44)
== END 2022-11-09 23:04 | disposition home or self-care (01) ==
LOC: ER 15:58 → EDBD 15:58 → ER 23:04
DX: M94.0 Chondrocostal junction syndrome [Tietze] (principal); J44.9 Chronic obstructive pulmonary disease, unspecified; F17.210 Nicotine dependence, cigarettes, uncomplicated; F15.10 Other stimulant abuse, uncomplicated; R06.02 Shortness of breath; Z59.00 Homelessness unspecified; Z88.1 Allergy status to other antibiotic agents; Z79.899 Other long term (current) drug therapy
CPT/HCPCS: 36415; 80053; 80307; 81001; 83880; 84484; 85025; 93005

== ENCOUNTER 2023-02-23 11:02 | Emergency (ER) | payer MEDICAID ==
[~2023-02-23] VITALS: Ht 172.7 cm; Wt 72.7 kg
[~2023-02-23 11:02] MED LIST changes: +IBUP-1455 PO
[2023-02-23 11:03] VITALS: BP 111/75; PULSE 80; RESP 16; O2SAT 96
== END 2023-02-23 13:51 | disposition left against medical advice (07) ==
LOC: ER 11:02
DX: M25.511 Pain in right shoulder (principal); Z53.21 Procedure and treatment not carried out due to patient leaving prior to being seen by health care provider

== ENCOUNTER 2023-04-03 12:07 | Emergency (ER) | payer MEDICAID ==
[~2023-04-03] VITALS: Ht 172.7 cm; Wt 71.4 kg
[2023-04-03] MEDS ORDERED: AZIT1POW PO ×2 (17:05)
[2023-04-04 01:11] VITALS: BP 151/96; PULSE 82; RESP 18; TEMP 97.9
[2023-04-04 01:12] VITALS: O2SAT 94
[2023-04-04] MEDS ORDERED: AZIT1POW PO (01:28)
[2023-04-05] MEDS ORDERED: PROM1SOL4 PO ×2 (08:37)
[2023-04-05] MEDS ORDERED: PRED20TA2 PO ×2 (08:37)
[2023-04-05] MEDS ORDERED: CEPH500C PO ×2 (08:37)
[2023-04-05] MEDS ORDERED: ALBU108A5 IN ×2 (08:47)
== END 2023-04-04 01:34 | disposition home or self-care (01) ==
LOC: ER 12:07
DX: M19.071 Primary osteoarthritis, right ankle and foot (principal); J20.9 Acute bronchitis, unspecified; R07.89 Other chest pain; J44.9 Chronic obstructive pulmonary disease, unspecified; F17.210 Nicotine dependence, cigarettes, uncomplicated; Z59.00 Homelessness unspecified; Z79.1 Long term (current) use of non-steroidal anti-inflammatories (NSAID); Z79.2 Long term (current) use of antibiotics; Z79.899 Other long term (current) drug therapy; Z88.8 Allergy status to other drugs, medicaments and biological substances
CPT/HCPCS: 71045; 73600

== ENCOUNTER 2023-04-05 06:07 | Emergency (ER) | payer MEDICAID ==
[~2023-04-05] VITALS: Ht 172.7 cm; Wt 73.2 kg
[~2023-04-05 06:07] MED LIST changes: +AZIT1POW PO
[2023-04-05 06:52] VITALS: BP 150/110
[2023-04-05 07:04] VITALS: PULSE 90; TEMP 97.3
[2023-04-05] MEDS ORDERED: ACETAMINOPHEN 500 MG TAB PO ONE (07:30)
[2023-04-05] MEDS ORDERED: ALBUTEROL MEDNEB 2.5 mg/3ml NEB NEB ONE (07:30)
[2023-04-05] MEDS ORDERED: cefTRIAXone SOD 1,000 MG VL IM ONE (07:30)
[2023-04-05] MEDS ORDERED: IPRATROPIUM BROM 0.5 MG/2.5ML INH SOL NEB ONE (07:30)
[2023-04-05 07:39] VITALS: RESP 16; O2SAT 96
[2023-04-05] MEDS ORDERED: CEPH500C PO ×2 (08:37)
[2023-04-05] MEDS ORDERED: PROM1SOL4 PO ×2 (08:37)
[2023-04-05] MEDS ORDERED: PRED20TA2 PO ×2 (08:37)
[2023-04-05] MEDS ORDERED: ALBU108A5 IN ×2 (08:47)
[2023-04-06] MEDS ORDERED: PROM1SOL4 PO (10:04)
[2023-04-06] MEDS ORDERED: PRED20TA2 PO (10:04)
[2023-04-06] MEDS ORDERED: ALBU108A5 IN (10:04)
[2023-04-06] MEDS ORDERED: CEPH500C PO (10:04)
== END 2023-04-05 08:22 | disposition home or self-care (01) ==
LOC: ER 06:07
DX: J20.9 Acute bronchitis, unspecified (principal); M25.551 Pain in right hip; J44.9 Chronic obstructive pulmonary disease, unspecified; F17.210 Nicotine dependence, cigarettes, uncomplicated; F15.10 Other stimulant abuse, uncomplicated; Z59.00 Homelessness unspecified; Z88.6 Allergy status to analgesic agent
CPT/HCPCS: 71045; 73502; 94640; 96372; 99284; J0696; J7644

== ENCOUNTER 2023-04-06 09:14 | Emergency (ER) | payer MEDICAID ==
[~2023-04-06] VITALS: Ht 172.7 cm; Wt 71.1 kg
[~2023-04-06 09:14] MED LIST changes: +ALBU108A5 IN; +CEPH500C PO; +PRED20TA2 PO; +PROM1SOL4 PO
[2023-04-06 09:25] VITALS: TEMP 98.6
[2023-04-06] MEDS ORDERED: ALBUTEROL MEDNEB 2.5 mg/3ml NEB NEB ONE (10:00)
[2023-04-06] MEDS ORDERED: IPRATROPIUM BROM 0.5 MG/2.5ML INH SOL NEB ONE (10:00)
[2023-04-06] MEDS ORDERED: PRED20TA2 PO (10:04)
[2023-04-06] MEDS ORDERED: ALBU108A5 IN (10:04)
[2023-04-06] MEDS ORDERED: CEPH500C PO (10:04)
[2023-04-06] MEDS ORDERED: PROM1SOL4 PO (10:04)
[2023-04-06 10:05] VITALS: BP 149/93; PULSE 75; RESP 16; O2SAT 94
== END 2023-04-06 10:38 | disposition home or self-care (01) ==
LOC: ER 09:14
DX: J20.9 Acute bronchitis, unspecified (principal); J44.9 Chronic obstructive pulmonary disease, unspecified; F17.210 Nicotine dependence, cigarettes, uncomplicated; Z59.00 Homelessness unspecified; Z79.1 Long term (current) use of non-steroidal anti-inflammatories (NSAID); Z79.2 Long term (current) use of antibiotics; Z79.899 Other long term (current) drug therapy; Z88.5 Allergy status to narcotic agent; Z88.8 Allergy status to other drugs, medicaments and biological substances
CPT/HCPCS: 99283; J7644

== ENCOUNTER 2023-07-05 08:59 | Emergency (ER) | payer MEDICAID ==
[~2023-07-05] VITALS: Ht 162.6 cm; Wt 68.0 kg
[2023-07-05] MEDS: IBUPROFEN 600 MG TAB PO ONE (09:50)
[2023-07-05 10:33] VITALS: BP 144/98; PULSE 88; RESP 17; TEMP 97.7; O2SAT 99
== END 2023-07-05 10:35 | disposition home or self-care (01) ==
LOC: EDBD 08:59 → ER 08:59
DX: F10.10 Alcohol abuse, uncomplicated (principal); M25.551 Pain in right hip; G89.4 Chronic pain syndrome; J44.9 Chronic obstructive pulmonary disease, unspecified; F17.210 Nicotine dependence, cigarettes, uncomplicated; F15.10 Other stimulant abuse, uncomplicated; Z59.00 Homelessness unspecified; Z88.6 Allergy status to analgesic agent

== ENCOUNTER 2023-08-25 23:55 | Emergency (ER) | payer MEDICAID ==
[~2023-08-25] VITALS: Ht 165.1 cm; Wt 60.0 kg
[2023-08-26 02:21] VITALS: BP 144/84; PULSE 78; RESP 20; TEMP 98.2; O2SAT 99
[2023-08-26] MEDS ORDERED: BACL5TAB2 PO (02:55)
[2023-08-26] MEDS ORDERED: NAP500T PO (02:55)
[2023-08-26] MEDS: KETOROLAC TROMETH 60MG/2ML VIAL IM ONE (03:08)
== END 2023-08-26 03:15 | disposition home or self-care (01) ==
LOC: EDBD 23:55 → ER 23:55
DX: G89.29 Other chronic pain (principal); M25.511 Pain in right shoulder; M25.551 Pain in right hip; M19.90 Unspecified osteoarthritis, unspecified site; F41.9 Anxiety disorder, unspecified; J44.9 Chronic obstructive pulmonary disease, unspecified; F20.9 Schizophrenia, unspecified; F17.210 Nicotine dependence, cigarettes, uncomplicated; F15.10 Other stimulant abuse, uncomplicated; Z88.6 Allergy status to analgesic agent
CPT/HCPCS: 96372; 99283; J1885

== ENCOUNTER 2023-09-12 10:04 | Emergency (ER) | payer MEDICAID ==
[~2023-09-12] VITALS: Ht 172.7 cm; Wt 74.0 kg
[~2023-09-12 10:04] MED LIST changes: +BACL5TAB2 PO; +NAP500T PO
[2023-09-12 11:09] VITALS: BP 142/80; PULSE 76; RESP 16; TEMP 98.6; O2SAT 98
[2023-09-12] MEDS ORDERED: IBUP-1456 PO (12:34)
[2023-09-12] MEDS: KETOROLAC TROMETH 60MG/2ML VIAL IM ONE (12:36)
== END 2023-09-12 12:40 | disposition home or self-care (01) ==
LOC: EDBD 10:04 → EDUNIT# 10:04 → ER 10:04
DX: S52.125A Nondisplaced fracture of head of left radius, initial encounter for closed fracture (principal); S76.011A Strain of muscle, fascia and tendon of right hip, initial encounter; S80.02XA Contusion of left knee, initial encounter; J44.9 Chronic obstructive pulmonary disease, unspecified; F17.210 Nicotine dependence, cigarettes, uncomplicated; F15.10 Other stimulant abuse, uncomplicated; Z59.00 Homelessness unspecified; Z88.6 Allergy status to analgesic agent; W03.XXXA Other fall on same level due to collision with another person, initial encounter; Y93.89 Activity, other specified; Y92.89 Other specified places as the place of occurrence of the external cause; Y99.8 Other external cause status
CPT/HCPCS: 29105; 73080; 73502; 73562; 96372; 99284; J1885

== ENCOUNTER 2023-10-11 09:49 | Emergency (ER) | payer MEDICAID ==
[~2023-10-11] VITALS: Ht 172.7 cm; Wt 68.3 kg
[~2023-10-11 09:49] MED LIST changes: +IBUP-1456 PO
[2023-10-11 10:14] VITALS: BP 126/86; PULSE 90; RESP 16; TEMP 98; O2SAT 96
[2023-10-11] MEDS: HYDROcodone-ACET 5/325MG TAB PO ONE (10:21)
== END 2023-10-11 11:50 | disposition home or self-care (01) ==
LOC: EDBD 09:49 → ER 09:49
DX: S52.125D Nondisplaced fracture of head of left radius, subsequent encounter for closed fracture with routine healing (principal); M25.522 Pain in left elbow; M25.551 Pain in right hip; J44.9 Chronic obstructive pulmonary disease, unspecified; F17.210 Nicotine dependence, cigarettes, uncomplicated; F15.10 Other stimulant abuse, uncomplicated; Z59.00 Homelessness unspecified; W03.XXXA Other fall on same level due to collision with another person, initial encounter; Y93.89 Activity, other specified; Y92.89 Other specified places as the place of occurrence of the external cause; Y99.8 Other external cause status
CPT/HCPCS: 29105; 73080; 73502

== ENCOUNTER 2023-11-01 15:26 | Inpatient (IN) | payer MEDICAID ==
[~2023-11-01] VITALS: Ht 172.7 cm; Wt 69.7 kg
[2023-11-01 17:13] LABS: Basophils # (auto) 0.1 10 ^3/uL (0-0.2); Eosinophils # (auto) 0.1 10 ^3/uL (0-0.8); Hematocrit 45.2 % (36.0-46.0); Hemoglobin 15.7 g/dL (12.2-16.2); Monocytes # (auto) 0.5 10 ^3/uL (0-1.3)
[2023-11-01 17:15] LABS: Basophils % (auto) 0.8 % (0.0-2.0); Lymphocytes # (auto) 2.1 10 ^3/uL (0.4-5.4); Mean Corpuscular Hemoglobin 34.6 pg (28.0-32.0); Mean Corpuscular Hgb Conc. 34.8 g/dL (32.0-36.0); Mean Corpuscular Volume 99.5 fL (80.0-100.0); Monocytes % (auto) 6.1 % (0.0-12.0); Neutrophils # (auto) 5.1 10 ^3/uL (1.6-8.6); Neutrophils % (auto) 65.1 % (37.0-80.0); Nucleated Red Blood Cells % 0.2 %; Red Blood Cells 4.54 10^6/uL (4.0-5.20); Red Cell Distribution Width 14.5 % (11.8-14.3); White Blood Cell 7.8 10^3/uL (4.4-10.8)
[2023-11-01 17:32] LABS: Alanine Aminotransferase 16 U/L (7-40); Albumin 4.6 g/dL (3.2-4.8); Alkaline Phosphatase 143 U/L (46-116); Anion Gap 6 (5-15); Aspartate Aminotransferase 26 U/L (13-40); BUN/Creatinine Ratio 18.2 (10.0-20.0); Blood Urea Nitrogen 12 mg/dL (9-23); Carbon Dioxide 28 mmol/L (20-30); Chloride 104 mmol/L (98-107); Glucose 74 mg/dL (74-106); Magnesium 1.2 mg/dL (1.6-2.6); Potassium 4.1 mmol/L (3.5-5.1); Sodium 138 mmol/L (136-145)
[2023-11-01 17:33] LABS: Bilirubin, Total 2.4 mg/dL (0.2-1.0); Total Protein 7.3 g/dL (5.7-8.2)
[2023-11-01 17:36] LABS: INR 1.01 (0.9-1.15); Partial Thromboplastin Time 25.9 SEC (24.5-34.5); Prothrombin Time 10.7 sec (9.3-11.8)
[2023-11-01 20:14] LABS: Urine Bacteria None Seen /hpf (None Seen)
[2023-11-01] MEDS: cloNIDine HCL 0.1 MG TAB PO ONE (20:36)
[2023-11-01 20:37] LABS: Urine Blood Negative /uL (Negative); Urine Clarity Clear (Clear); Urine Color Light-Yellow (Yellow); Urine Protein, UAD Negative (Negative); Urine Specific Gravity 1.016 (1.001-1.035); Urine Urobilinogen Normal (Negative); Urine WBC 1 /hpf (0 - 5); Urine pH 6.5 (5.0-9.0)
[2023-11-01 21:55] VITALS: PULSE 91; RESP 14; O2SAT 95
[2023-11-01] MEDS ORDERED: ONDANSETRON HCL 4 MG/2 ML VIAL IV PRN (23:30)
[2023-11-01] MEDS ORDERED: hydrALAZINE HCL 20 MG/ML VL IV PRN (23:30)
[2023-11-01] MEDS ORDERED: DOCUSATE SOD 100 MG CAP PO PRN (23:30)
[2023-11-01] MEDS ORDERED: MORPHINE SULFATE INJ 2 MG/ml SYRG IV PRN (23:45)
[2023-11-02] VITALS (10 sets, daily range): BP systolic 110–130; BP diastolic 66–88; PULSE 51–76; RESP 16–17; TEMP 97.4–98.7; O2SAT 95–97
[2023-11-02] MEDS: MAGNESIUM SULFATE 1GM/100ML 100 ML IV SCH (00:03)
[2023-11-02] MEDS: SODIUM CHLORIDE 0.9% 1,000 ML IV SCH (00:03)
[2023-11-02] MEDS ORDERED: QUET50TA PO (05:12)
[2023-11-02] MEDS ORDERED: TRAZ-228 PO (05:12)
[2023-11-02] MEDS: ASPirin 81 mg TAB PO SCH (10:21)
[2023-11-02 10:23] LABS: Basophils # (auto) 0 10 ^3/uL (0-0.2); Eosinophils # (auto) 0.1 10 ^3/uL (0-0.8); Lymphocytes # (auto) 1.4 10 ^3/uL (0.4-5.4); Monocytes # (auto) 0.3 10 ^3/uL (0-1.3); Neutrophils # (auto) 2.5 10 ^3/uL (1.6-8.6)
[2023-11-02 10:25] LABS: Basophils % (auto) 0.6 % (0.0-2.0); Eosinophils % (auto) 1.6 % (0.0-7.0); Hematocrit 39.3 % (36.0-46.0); Hemoglobin 13.7 g/dL (12.2-16.2); Lymphocytes % (auto) 32.8 % (10.0-50.0); Mean Corpuscular Hemoglobin 34.9 pg (28.0-32.0); Mean Corpuscular Hgb Conc. 34.8 g/dL (32.0-36.0); Mean Corpuscular Volume 100.3 fL (80.0-100.0); Monocytes % (auto) 6.8 % (0.0-12.0); Neutrophils % (auto) 58.2 % (37.0-80.0); Nucleated Red Blood Cells % 0.1 %; Red Blood Cells 3.92 10^6/uL (4.0-5.20); Red Cell Distribution Width 14.4 % (11.8-14.3); White Blood Cell 4.3 10^3/uL (4.4-10.8)
[2023-11-02 10:38] LABS: Alanine Aminotransferase 11 U/L (7-40); Albumin 3.9 g/dL (3.2-4.8); Alkaline Phosphatase 125 U/L (46-116); Anion Gap 2 (5-15); Aspartate Aminotransferase 13 U/L (13-40); BUN/Creatinine Ratio 19.5 (10.0-20.0); Bilirubin, Total 1.8 mg/dL (0.2-1.0); Blood Urea Nitrogen 15 mg/dL (9-23); Calcium 9.4 mg/dL (8.5-10.1); Carbon Dioxide 31 mmol/L (20-30); Chloride 106 mmol/L (98-107); Glucose 84 mg/dL (74-106); Potassium 3.8 mmol/L (3.5-5.1); Sodium 139 mmol/L (136-145); Total Protein 6.3 g/dL (5.7-8.2)
[2023-11-02] MEDS: traZODone HCL 50 MG TAB PO SCH (22:07)
[2023-11-02] MEDS: ACETAMINOPHEN 500 MG TAB PO PRN (22:08)
[2023-11-03] VITALS (11 sets, daily range): BP systolic 104–150; BP diastolic 48–90; PULSE 62–100; RESP 16–20; TEMP 97.5–98.7; O2SAT 94–100
[2023-11-03] MEDS: ALBUTEROL SULF 2.5 MG/0.5ML(0.5%) NEB SOLN NEB PRN (06:50)
[2023-11-03] MEDS: IPRATROPIUM BROM 0.5 MG/2.5ML INH SOL NEB PRN (06:50)
[2023-11-03] MEDS: NITROGLYCERIN 0.4 MG SL TAB SL PRN (07:26)
[2023-11-03] MEDS: IOHEXOL 350 MG/ML 100ML IJ ONE (11:09)
[2023-11-03] MEDS ORDERED: ATROPINE SULF 1 MG/10ml SYR IV PRN (13:30)
[2023-11-03] MEDS: ENOXAPARIN SOD 100 MG/1 ML SYRINGE SC ONE (17:15)
[2023-11-03] MEDS: ENOXAPARIN SOD 100 MG/1 ML SYRINGE SC SCH (21:32)
[2023-11-04] VITALS (14 sets, daily range): BP systolic 115–157; BP diastolic 75–93; PULSE 66–96; RESP 16–18; TEMP 97.6–98; O2SAT 92–98
[2023-11-04] MEDS: LIDOCAINE VISCOUS 2% 15ML UD PO ONE (10:07)
[2023-11-04] MEDS: MIDAZOLAM HCL 2MG/2ML 2ml VIAL (1mg/ml) IV ONE (10:11)
[2023-11-04] MEDS: fentaNYL CITRATE 100 MCG/2 ML VL IV ONE (10:13)
[2023-11-04] MEDS: fentaNYL CITRATE 100 MCG/2 ML VL ONE (10:45)
[2023-11-04] MEDS: MIDAZOLAM HCL 2MG/2ML 2ml VIAL (1mg/ml) ONE (10:45)
[2023-11-04] MEDS: LIDOCAINE VISCOUS 2% 15ML UD MT ONE (10:45)
[2023-11-04] MEDS: PANTOPRAZOLE 40 MG TAB PO ONE (11:15)
[2023-11-04 11:58] LABS: Basophils # (auto) 0 10 ^3/uL (0-0.2); Eosinophils # (auto) 0.1 10 ^3/uL (0-0.8); Lymphocytes # (auto) 1.9 10 ^3/uL (0.4-5.4); Mean Corpuscular Hgb Conc. 34.4 g/dL (32.0-36.0); Monocytes # (auto) 0.3 10 ^3/uL (0-1.3)
[2023-11-04 12:00] LABS: Basophils % (auto) 0.9 % (0.0-2.0); Eosinophils % (auto) 2.6 % (0.0-7.0); Hematocrit 38.3 % (36.0-46.0); Hemoglobin 13.2 g/dL (12.2-16.2); Lymphocytes % (auto) 46.9 % (10.0-50.0); Mean Corpuscular Hemoglobin 34.8 pg (28.0-32.0); Mean Corpuscular Volume 101.2 fL (80.0-100.0); Monocytes % (auto) 8.4 % (0.0-12.0); Neutrophils # (auto) 1.7 10 ^3/uL (1.6-8.6); Neutrophils % (auto) 41.2 % (37.0-80.0); Nucleated Red Blood Cells % 0.2 %; Red Blood Cells 3.78 10^6/uL (4.0-5.20); Red Cell Distribution Width 14.2 % (11.8-14.3); White Blood Cell 4.1 10^3/uL (4.4-10.8)
[2023-11-04] MEDS ORDERED: DOCUSATE SOD 100 MG CAP PO PRN (12:15)
[2023-11-04 12:24] LABS: Alanine Aminotransferase 15 U/L (7-40); Albumin 3.5 g/dL (3.2-4.8); Alkaline Phosphatase 98 U/L (46-116); Anion Gap 4 (5-15); Aspartate Aminotransferase 29 U/L (13-40); BUN/Creatinine Ratio 14.1 (10.0-20.0); Blood Alcohol < 3.0 mg/dL (<10); Blood Urea Nitrogen 10 mg/dL (9-23); Carbon Dioxide 27 mmol/L (20-30); Chloride 109 mmol/L (98-107); Glucose 90 mg/dL (74-106); Magnesium 1.3 mg/dL (1.6-2.6); Potassium 3.8 mmol/L (3.5-5.1); Sodium 140 mmol/L (136-145)
[2023-11-04 12:25] LABS: Bilirubin, Total 0.8 mg/dL (0.2-1.0); Total Protein 5.6 g/dL (5.7-8.2)
[2023-11-04 16:26] LABS: Folate (Folic Acid) 10.77 ng/mL (>5.38)
[2023-11-04] MEDS: SUCRALFATE 1 GM TAB PO SCH (16:39)
[2023-11-04] MEDS: CYANOCOBALAMIN (B-12) 1000 MCG/1 ML VIAL IM ONE (18:08)
[2023-11-04] MEDS: MAGNESIUM SULFATE 1GM/100ML 100 ML IV SCH (18:08)
[2023-11-04] MEDS: amLODIPine BESYLATE 5 MG TAB PO ONE (18:15)
[2023-11-04] MEDS ORDERED: IPRATROPIUM BROM 0.5 MG/2.5ML INH SOL NEB PRN (18:15)
[2023-11-04] MEDS ORDERED: ALBUTEROL SULF 2.5 MG/0.5ML(0.5%) NEB SOLN NEB PRN (18:15)
[2023-11-04] MEDS: TEMAZEPAM 15 MG CAP PO ONE (20:15)
[2023-11-04] MEDS: QUEtiapine FUMARATE 25 MG TAB PO SCH (21:06)
[2023-11-04] MEDS ORDERED: ENOXAPARIN SOD 80 MG/0.8ML SYRINGE SC ONE (22:00)
[2023-11-05] VITALS (12 sets, daily range): BP systolic 133–156; BP diastolic 62–116; PULSE 67–96; RESP 16–19; TEMP 97.8–98.4; O2SAT 93–100
[2023-11-05] MEDS: PANTOPRAZOLE 40 MG TAB PO SCH ×2 (04:29→21:12)
[2023-11-05] MEDS: ERGOCALCIFEROL 50,000 UNIT(1.25MG) CAP PO SCH (09:00)
[2023-11-05 09:34] LABS: Basophils # (auto) 0 10 ^3/uL (0-0.2); Eosinophils # (auto) 0.1 10 ^3/uL (0-0.8); Eosinophils % (auto) 1.5 % (0.0-7.0); Lymphocytes # (auto) 1.7 10 ^3/uL (0.4-5.4); Monocytes # (auto) 0.4 10 ^3/uL (0-1.3)
[2023-11-05 09:36] LABS: Basophils % (auto) 0.4 % (0.0-2.0); Hematocrit 40.3 % (36.0-46.0); Lymphocytes % (auto) 28.2 % (10.0-50.0); Mean Corpuscular Hgb Conc. 34.7 g/dL (32.0-36.0); Mean Corpuscular Volume 100.8 fL (80.0-100.0); Monocytes % (auto) 6.7 % (0.0-12.0); Neutrophils # (auto) 3.8 10 ^3/uL (1.6-8.6); Neutrophils % (auto) 63.2 % (37.0-80.0); Red Cell Distribution Width 14.7 % (11.8-14.3)
[2023-11-05 09:46] LABS: Chloride 108 mmol/L (98-107); Potassium 4.3 mmol/L (3.5-5.1); Sodium 139 mmol/L (136-145)
[2023-11-05 09:47] LABS: Anion Gap 3 (5-15); Calcium 9.6 mg/dL (8.5-10.1); Carbon Dioxide 28 mmol/L (20-30)
[2023-11-05 09:52] LABS: BUN/Creatinine Ratio 10.9 (10.0-20.0); Blood Urea Nitrogen 7 mg/dL (9-23); Glucose 101 mg/dL (74-106)
[2023-11-05 09:53] LABS: Magnesium 1.7 mg/dL (1.6-2.6)
[2023-11-05] MEDS: ATROPINE SULF 1 MG/10ml SYR IV SCH (10:00)
[2023-11-05] MEDS ORDERED: amLODIPine BESYLATE 5 MG TAB PO SCH (10:00)
[2023-11-05] MEDS: ENOXAPARIN SOD 40 MG/0.4 ML SYRINGE SC SCH (10:00)
[2023-11-05] MEDS: amLODIPine BESYLATE 5 MG TAB PO SCH (10:00)
[2023-11-05] MEDS: MAGNESIUM SULFATE 1GM/100ML 100 ML IV ONE (10:45)
[2023-11-05] MEDS: CYANOCOBALAMIN (B-12) 1000 MCG/1 ML VIAL IM SCH (11:43)
[2023-11-05] MEDS: CYANOCOBALAMIN (B-12) 1000 MCG/1 ML VIAL IM ONE (12:30)
[2023-11-05] MEDS ORDERED: SUCR1TAB31 OR (15:15)
[2023-11-05] MEDS ORDERED: CYAN-17 PO (15:15)
[2023-11-05] MEDS ORDERED: PANT40T PO (15:15)
[2023-11-05] MEDS: SUCRALFATE 1 GM/10 ML ORAL SUSP GT SCH (16:38)
[2023-11-06 08:00] VITALS: PULSE 77; PULSE 87; RESP 18; O2SAT 91
[2023-11-06 08:30] VITALS: BP 141/79; PULSE 87; RESP 18; TEMP 98.4; O2SAT 91
[2023-11-06 10:00] VITALS: O2SAT 97
[2023-11-06] MEDS: LISINOPRIL 5 MG TAB PO SCH (10:57)
[2023-11-06 13:00] VITALS: BP 120/91; PULSE 102; RESP 18; TEMP 97.5; O2SAT 96
[2023-11-06 15:20] VITALS: BP 120/91; PULSE 102; RESP 18; TEMP 97.5; O2SAT 66
[2023-11-07 13:07] LABS: Methylmalonic Acid 263 nmol/L (0-378)
== END 2023-11-06 16:40 | disposition home or self-care (01) | DRG 241 ==
LOC: ER 15:26 → EDUNIT# 15:26 → EDBD 15:26 → TELE 23:44 → TELE-CENTR 11-02 02:54
PROVIDERS: ADMIT Internal Medicine; ATTEND Internal Medicine
PROC: B24BZZ4 Ultrasonography of Heart with Aorta, Transesophageal (ICD-10-PCS; principal; 2023-11-04)
PROC: 0DB98ZX Excision of Duodenum, Via Natural or Artificial Opening Endoscopic, Diagnostic (ICD-10-PCS; 2023-11-05)
PROC: 0DB68ZX Excision of Stomach, Via Natural or Artificial Opening Endoscopic, Diagnostic (ICD-10-PCS; 2023-11-05)
DX: K25.9 Gastric ulcer, unspecified as acute or chronic, without hemorrhage or perforation (principal); E53.8 Deficiency of other specified B group vitamins; K29.70 Gastritis, unspecified, without bleeding; F15.90 Other stimulant use, unspecified, uncomplicated; F17.210 Nicotine dependence, cigarettes, uncomplicated; F20.9 Schizophrenia, unspecified; I16.0 Hypertensive urgency; J44.9 Chronic obstructive pulmonary disease, unspecified; K44.9 Diaphragmatic hernia without obstruction or gangrene; I25.10 Atherosclerotic heart disease of native coronary artery without angina pectoris; R13.10 Dysphagia, unspecified; K31.89 Other diseases of stomach and duodenum; K21.9 Gastro-esophageal reflux disease without esophagitis; E83.42 Hypomagnesemia; Z88.6 Allergy status to analgesic agent; Z59.00 Homelessness unspecified; Z82.49 Family history of ischemic heart disease and other diseases of the circulatory system; Z83.3 Family history of diabetes mellitus
CPT/HCPCS: 36415; 71045; 71275; 80048; 80053; 80320; 81001; 82306; 82607; 82746; 83036; 83735; 83880; 84443; 84484; 85025; 85045; 85379; 85610; 85730; 86850; 86900; 86901; 87081; 93005; 93306; 93312; 94640; G0378; J2250; J2405

== ENCOUNTER 2023-12-01 14:26 | Emergency (ER) | payer MEDICAID ==
[~2023-12-01] VITALS: Ht 172.7 cm; Wt 56.8 kg
[~2023-12-01 14:26] MED LIST changes: -AMOX875T3 PO; -AZIT1POW PO; -CEPH500C PO; -CLIN-203 PO; +CYAN-17 PO; +QUET50TA PO; +SUCR1TAB31 OR; +TRAZ-228 PO
[2023-12-01 15:02] LABS: Basophils # (auto) 0 10 ^3/uL (0-0.2); Eosinophils # (auto) 0.1 10 ^3/uL (0-0.8); Mean Corpuscular Hgb Conc. 34.6 g/dL (32.0-36.0); Monocytes # (auto) 0.3 10 ^3/uL (0-1.3); Neutrophils # (auto) 1.9 10 ^3/uL (1.6-8.6)
[2023-12-01 15:03] LABS: Eosinophils % (auto) 2.2 % (0.0-7.0); Hematocrit 40.4 % (36.0-46.0); Lymphocytes # (auto) 2.6 10 ^3/uL (0.4-5.4); Mean Corpuscular Hemoglobin 34.9 pg (28.0-32.0); Mean Corpuscular Volume 100.9 fL (80.0-100.0); Monocytes % (auto) 5.4 % (0.0-12.0); Neutrophils % (auto) 38.4 % (37.0-80.0); Nucleated Red Blood Cells % 0.1 %; Red Blood Cells 4.01 10^6/uL (4.0-5.20); Red Cell Distribution Width 14.6 % (11.8-14.3); White Blood Cell 4.9 10^3/uL (4.4-10.8)
[2023-12-01 15:10] LABS: Chloride 108 mmol/L (98-107); Potassium 2.8 mmol/L (3.5-5.1); Sodium 144 mmol/L (136-145)
[2023-12-01 15:11] LABS: Anion Gap 16 (5-15); Calcium 9.1 mg/dL (8.7-10.4); Carbon Dioxide 20 mmol/L (20-30)
[2023-12-01 15:16] LABS: BUN/Creatinine Ratio 15.2 (10.0-20.0); Blood Urea Nitrogen 12 mg/dL (9-23); Glucose 83 mg/dL (74-106)
[2023-12-01 15:26] LABS: Blood Alcohol 277.6 mg/dL (<10)
[2023-12-02 00:28] VITALS: BP 150/93; PULSE 74; RESP 16; TEMP 98; O2SAT 99
[2023-12-02] MEDS: SODIUM CHLORIDE 0.9% 1,000 ML IV ONE (00:28)
== END 2023-12-02 00:31 | disposition home or self-care (01) ==
LOC: EDBD 14:26 → ER 14:31
DX: F10.129 Alcohol abuse with intoxication, unspecified (principal); F41.9 Anxiety disorder, unspecified; J44.9 Chronic obstructive pulmonary disease, unspecified; I10 Essential (primary) hypertension; F20.9 Schizophrenia, unspecified; F12.10 Cannabis abuse, uncomplicated; F17.210 Nicotine dependence, cigarettes, uncomplicated; Z88.5 Allergy status to narcotic agent; Z59.00 Homelessness unspecified; Z79.899 Other long term (current) drug therapy; Y90.8 Blood alcohol level of 240 mg/100 ml or more
CPT/HCPCS: 36415; 80048; 80320; 85025

== ENCOUNTER 2024-03-25 23:37 | Emergency (ER) | payer MEDICAID ==
[~2024-03-25] VITALS: Ht 172.7 cm; Wt 75.0 kg
[2024-03-26 00:25] VITALS: BP 135/78; PULSE 86; RESP 16; TEMP 97.7; O2SAT 98
--- NOTE | 2024-03-26 01:00 | ED.PDOC ---
General HPI Comments 63-year-old female presents to ER with urinary complaint x1 day. Patient presents via EMS, reporting she has been experiencing increase in urination x1 day and states she has had similar symptoms in the past related to a urinary tract infection. She denies any pain. Denies use of medications for current symptoms. Patient presents to ER in no distress with vitals stable. Denies fever, body aches, chills, nausea/vomiting, abdominal/pelvic pain, back/flank pain, extremity pain, further changes in urination or any further symptoms/complaints Chief Complaint: Body Pain Time Seen by MD: 23:48 Primary Care Provider: UNKNOWN Reviewed notes: Nurses Notes, Medications, Allergies Allergies: Coded Allergies: Codeine (Verified Allergy, Unknown, 03/23/22) vomiting Home Meds Active Scripts Cyanocobalamin (B12) 1,000 Mcg Cap, 1000 MCG PO DAILY for 7 Days, #1 CAP 0 Refills Prov:HASEEB ROJAS RESIDENT 11/05/23 Sucralfate (CARAFATE) 1 Gm Tab, 1 GM OR QID for 30 Days, #120 TAB 0 Refills Prov:HASEEB ROJAS RESIDENT 11/05/23 Pantoprazole Sodium Sesquihydr (Pantoprazole Sodium) 40 Mg Tab, 40 MG PO BID for 30 Days, #60 TAB 2 Refills Prov:HASEEB ROJAS RESIDENT 11/05/23 Ibuprofen (Ibuprofen) 800 Mg Tab, 1 TAB PO TID, #30 TAB Prov:TEDDY MARTE 10/11/23 Ibuprofen (Ibuprofen) 800 Mg Tab, 1 TAB PO TID, #30 TAB Prov:TEDDY MARTE 09/12/23 Baclofen (Baclofen) 5 Mg Tab, 5 MG PO BID, #10 TAB As needed for muscle spasm Prov:EDGARD MARS DUE DILIGENCE COORDINATOR 08/26/23 Naproxen (NAPROSYN TABLET) 500 Mg Tb, 1 TAB PO BID, #10 TAB as needed for pain Prov:EDGARD MARS Q DUE DILIGENCE COORDINATOR 08/26/23 Albuterol Sulfate (Albuterol Sulfate Hfa) 108 Mcg/Act Aer, 108 MCG IN TID, #90 AER Prov:TEDDY MARTE 04/06/23 Prednisone (Prednisone) 20 Mg Tab, 60 MG PO DAILY, #15 MG Prov:TEDDY MARTE 04/06/23 Promethazine-Dm (Promethazine Dm 6.25-15 mg/5Ml) 1 Diana Diana, 5 ML PO TID, #150 ML Prov:TEDDY MARTE 04/06/23 Ibuprofen Micronized (Ibuprofen) 800 Mg Tab, 800 MG PO Q8HP PRN, #20 TAB Prov:MARVIN GARCIA PAC 11/09/22 Hydrocodone-Acetaminophen (Hydrocodone Bitartrate/AC 10-325 mg) 1 Tab Tab, 1 TAB PO Q4HPRN PRN, #15 TAB 0 Refills Prov:HARPREET MADDOX PA 11/09/22 Multiple Vitamin (Mvi Tab) 1 Tab Tb, 1 TAB PO DAILY for 30 Days, #30 TAB Prov:JACY POST MD 03/26/22 Levofloxacin (Levaquin) 500 Mg Tab, 500 MG PO DAILY for 7 Days, #7 TAB Prov:JACY POST MD 03/26/22 Pantoprazole Sodium Sesquihydr (Pantoprazole Sodium) 40 Mg Tab, 40 MG PO DAILY for 30 Days, #30 TAB Prov:JACY POST MD 03/26/22 Ibuprofen Micronized (MOTRIN TABLET) 600 Mg Tb, 600 MG PO TID for 7 Days, #21 TAB Prov:JACY POST MD 03/26/22 Meloxicam (Mobic) 7.5 Mg Tab, 7.5 MG PO BID, #30 TAB Prov:TEDDY MARTE 07/19/21 Reported Medications Trazodone Hcl (Trazodone Hcl) 100 Mg Tab, 1 TAB PO QPM, #30 TAB 1 Refill 11/02/23 Quetiapine Fumerate (Seroquel) 50 Mg Tab, 1 TAB PO QPM, #30 TAB 2 Refills 11/02/23 Hydrocodone-Acetaminophen (Hydrocodone Bitartrate/AC 5-325 mg) 1 Tab Tab, 1 TAB PO Q6HR PRN for PAIN SCALE 7 THRU 10, TAB 03/22/22 Mode of Arrival: EMS Past Medical History PAST MEDICAL HISTORY: Anxiety, COPD, HTN, Schizophrenia Surgical History: PIPE COVERER AND INSULATOR History: No Pertinent PIPE COVERER AND INSULATOR History Family History Family History: Unknown Social History Smoker: Cigarettes, Less Than 1 Pack/Day Alcohol: Occasionally Drugs: Methamphetamine Lives In: Homeless Constitutional: denies: chills, diaphoresis, fatigue, fever, malaise, sweats, weakness, others EENTM: denies: blurred vision, double vision, ear bleeding, ear discharge, ear drainage, ear pain, ear ringing, eye pain, eye redness, hearing loss, mouth pain, mouth swelling, nasal discharge, nose bleeding, nose congestion, nose pain, photophobia, tearing, throat pain, throat swelling, voice changes, others Respiratory: denies: cough, hemoptysis, orthopnea, SOB at rest, shortness of breath, SOB with excertion, stridor, wheezing, others Cardiovascular: denies: chest pain, dizzy spells, diaphoresis, Dyspnea on exertion, edema, irregular heart beat, left arm pain, lightheadedness, palpitations, PND, syncope, others Gastrointestinal: denies: abdomen distended, abdominal pain, blood streaked bowels, constipated, diarrhea, dysphagia, difficulty swallowing, hematemesis, melena, nausea, poor appetite, poor fluid intake, rectal bleeding, rectal pain, vomiting, others Genitourinary: reports: others (As stated in HPI) Neurological: denies: dizziness, fainting, headache, left sided numbness, left sided weakness, numbness, paresthesia, pre-existing deficit, right sided numbness, right sided weakness, seizure, speech problems, tingling, tremors, weakness, others Musculoskeletal: denies: back pain, gout, joint pain, joint swelling, muscle pain, muscle stiffness, neck pain, others Integumetry: denies: bruises, change in color, change in hair/nails, dryness, laceration, lesions, lumps, rash, wounds, others Allergic/Immunocompromised: denies: Difficulty Healing, Frequent Infections, Hives, Itching, others Hematologic/Lymphatic: denies: anemia, blood clots, easy bleeding, easy bruising, swollen glands, others Endocrine: denies: excessive hunger, excessive sweating, excessive thirst, excessive urination, flushing, intolerance to cold, intolerance to heat, unexplained weight gain, unexplained weight loss, others Psychiatric: denies: anxiety, bipolar disorder, depression, hopeless, panic disorder, schizophrenia, sleepless, suicidal, others Physical Exam General Appearance: No Apparent Distress HEENT: PERRL/EOMI Neck: Full Range of Motion, Non-Tender, Normal Respiratory: Chest Non-Tender, Lungs Clear, No Accessory Muscle Use, No Respiratory Distress, Normal Breath Sounds Cardiovascular: No Murmur, No Gallop, Regular Rate/Rhythm Breast Exam: Deferred Gastrointestinal: Non Tender, No Pulsatile Mass, Soft Genitalia: Deferred Pelvic: Deferred Rectal: Deferred Extremities: Normal capillary refill, Normal range of motion Musculoskeletal : Extremity Location: Back (No TTP to bilateral flanks or CVA tenderness noted bilaterally) Neurologic: Alert, customer support agent II-XII nml as Tested, No Motor Deficits, Normal Affect, Normal Mood, No Sensory Deficits Cerebellar Function: Normal Reflexes: Normal Skin: Dry, Normal Color, Warm Lymphatic: No Adenopathy Was a procedure done? Was a procedure done?: No Sedation Sedation?: No Differential Diagnosis Kidney stone (Female): N/A Urinary Problem (Female): Pyelonephritis, Urinary retention, Urolithiasis X-Ray, Labs, Meds, VS Vital Signs Date Time Temp Pulse Resp B/P (MAP) Pulse Ox O2 Delivery O2 Flow Rate FiO2 03/26/24 00:25 86 16 98 Room Air* 0 21 03/26/24 00:25 97.7 86 16 135/78 (97) 96 97.7 03/25/24 23:40 97.7 86 16 135/78 (97) 96 Lab Test 03/26/24 02:20 Range/Units Urine Color Light-yellow Yellow Urine Clarity Clear Clear Urine pH 5.0 5.0-9.0 Urine Specific Davidson 1.009 1.001-1.035 Urine Protein Negative Negative Urine Ketones Negative Negative Urine Blood Negative Negative /uL Urine Nitrite 2+ H Negative Urine Bilirubin Negative Negative Urine Urobilinogen Normal Negative mg/dL Urine Leukocyte Esterase Negative Negative /uL Urine RBC 1 0 - 4 /hpf Urine WBC 2 0 - 5 /hpf Urine Squamous Epithelial Cells Few <5 /hpf Urine Bacteria Few H None Seen /hpf Urine Glucose Normal Normal mg/dL Urinalysis reviewed-urine nitrites 2+, urine blood negative, urine leukocyte esterase negative Rocephin 1 g IM ordered Smoking/methamphetamine cessation discussed and advised Advised to drink plenty of fluids Patient in no distress during ER visit/prior to discharge Advised to follow up with PCP in 1-2 days Patient verbalized understanding and agreeable with current plan of care Advised to return to ER immediately if symptoms worsen Time of 1ST Reevaluation: 00:52 Reevaluation 1ST: N/A Patient Education/Counseling: Diagnosis, Treatment, Prognosis, Need For Follow Up Family Education/Counseling: No Family Present Departure 1 Departure Time of Disposition: 02:52 Impression: Primary Impression: UTI (urinary tract infection) Qualified Codes: N30.00 - Acute cystitis without hematuria Disposition: HOME / SELF CARE / HOMELESS Condition: Stable e-Prescriptions Sulfamethoxazole W/Trimethopri (Bactrim Ds Tablet) 1 Tab Tb 1 TAB PO BID for 7 Days, #14 TAB 0 Refills Prov: KATHRINE MEADE 03/26/24 Discharged With: Self Critical Care Note Critical Care Time?: No Stability Stability form required: No Heart Score Heart Score: Heart Score Response (Comments) Value History N/A 0 EKG N/A 0 Age N/A 0 Risk Factors N/A 0 Troponin N/A 0 Total 0 KATHRINE MEADE Mar 26, 2024 01:00
[2024-03-26 02:56] LABS: Urine Bacteria FEW /hpf (None Seen); Urine Blood Negative /uL (Negative); Urine Clarity Clear (Clear); Urine Color Light-Yellow (Yellow); Urine Protein, UAD Negative (Negative); Urine Specific Gravity 1.009 (1.001-1.035); Urine Urobilinogen Normal (Negative); Urine WBC 2 /hpf (0 - 5)
[2024-03-26] MEDS ORDERED: BACDST PO (03:00)
[2024-03-26] MEDS: cefTRIAXone SOD 1,000 MG VL IM ONE (03:10)
== END 2024-03-26 03:25 | disposition home or self-care (01) ==
LOC: ER 23:37 → EDBD 23:37 → ER 03-26 03:25
DX: N39.0 Urinary tract infection, site not specified (principal); I10 Essential (primary) hypertension; F41.9 Anxiety disorder, unspecified; J44.9 Chronic obstructive pulmonary disease, unspecified; F20.9 Schizophrenia, unspecified; F17.210 Nicotine dependence, cigarettes, uncomplicated; F15.90 Other stimulant use, unspecified, uncomplicated; Z98.890 Other specified postprocedural states; Z59.00 Homelessness unspecified; Z88.5 Allergy status to narcotic agent; Z79.1 Long term (current) use of non-steroidal anti-inflammatories (NSAID); Z79.52 Long term (current) use of systemic steroids; Z79.899 Other long term (current) drug therapy
CPT/HCPCS: 81001; 96372; 99283; J0696

== ENCOUNTER 2024-05-19 20:06 | Emergency (ER) | payer MEDICAID ==
[~2024-05-19] VITALS: Ht 170.2 cm; Wt 77.3 kg
[~2024-05-19 20:06] MED LIST changes: +BACDST PO
--- NOTE | 2024-05-19 21:04 | ED.PDOC ---
History of Present Illness HPI Comments 63 y/o F is BIBA for cold exposure, today. EMS comments on patient being homeless and calling, due to being out in the cold. On scene, she was noted to have been found with a blood pressure of 184/112 in addition to complaining of chronic right-sided pain. She denies having any additional associated symptoms, such as fever, cough, nausea, or vomiting, at this time. Chief Complaint: Body Pain Time Seen by MD: 20:15 Primary Care Provider: UNKNOWN Reviewed Notes: Nurses Notes, Medical Planner Notes, Medications, Allergies Allergies: Coded Allergies: Codeine (Verified Allergy, Unknown, 03/23/22) vomiting Home Meds Active Scripts Sulfamethoxazole W/Trimethopri (Bactrim Ds Tablet) 1 Tab Tb, 1 TAB PO BID for 7 Days, #14 TAB 0 Refills Prov:KATHRINE MEADE 03/26/24 Cyanocobalamin (B12) 1,000 Mcg Cap, 1000 MCG PO DAILY for 7 Days, #1 CAP 0 Refills Prov:HASEEB ROJAS RESIDENT 11/05/23 Sucralfate (CARAFATE) 1 Gm Tab, 1 GM OR QID for 30 Days, #120 TAB 0 Refills Prov:HASEEB ROJAS [facility] 11/05/23 Pantoprazole Sodium Sesquihydr (Pantoprazole Sodium) 40 Mg Tab, 40 MG PO BID for 30 Days, #60 TAB 2 Refills Prov:BOBHASEEB RESIDENT 11/05/23 Ibuprofen (Ibuprofen) 800 Mg Tab, 1 TAB PO TID, #30 TAB Prov:TEDDY MARTE 10/11/23 Ibuprofen (Ibuprofen) 800 Mg Tab, 1 TAB PO TID, #30 TAB Prov:TEDDY MARTE 09/12/23 Baclofen (Baclofen) 5 Mg Tab, 5 MG PO BID, #10 TAB As needed for muscle spasm Prov:EDGARD MARS Q CASHIER GREETER 08/26/23 Naproxen (NAPROSYN TABLET) 500 Mg Tb, 1 TAB PO BID, #10 TAB as needed for pain Prov:REJI MARSALDA Q CASHIER GREETER 08/26/23 Albuterol Sulfate (Albuterol Sulfate Hfa) 108 Mcg/Act Aer, 108 MCG IN TID, #90 AER Prov:TEDDY MARTE 04/06/23 Prednisone (Prednisone) 20 Mg Tab, 60 MG PO DAILY, #15 MG Prov:TEDDY MARTE 04/06/23 Promethazine-Dm (Promethazine Dm 6.25-15 mg/5Ml) 1 Diana Diana, 5 ML PO TID, #150 ML Prov:TEDDY MARTE 04/06/23 Ibuprofen Micronized (Ibuprofen) 800 Mg Tab, 800 MG PO Q8HP PRN, #20 TAB Prov:MARVIN GARCIA PAC 11/09/22 Hydrocodone-Acetaminophen (Hydrocodone Bitartrate/AC 10-325 mg) 1 Tab Tab, 1 TAB PO Q4HPRN PRN, #15 TAB 0 Refills Prov:HARPREET MADDOX 11/09/22 Multiple Vitamin (Mvi Tab) 1 Tab Tb, 1 TAB PO DAILY for 30 Days, #30 TAB Prov:JACY POST MD 03/26/22 Levofloxacin (Levaquin) 500 Mg Tab, 500 MG PO DAILY for 7 Days, #7 TAB Prov:JACY POST MD 03/26/22 Pantoprazole Sodium Sesquihydr (Pantoprazole Sodium) 40 Mg Tab, 40 MG PO DAILY for 30 Days, #30 TAB Prov:JACY POST MD 03/26/22 Ibuprofen Micronized (MOTRIN TABLET) 600 Mg Tb, 600 MG PO TID for 7 Days, #21 TAB Prov:JACY POST MD 03/26/22 Meloxicam (Mobic) 7.5 Mg Tab, 7.5 MG PO BID, #30 TAB Prov:TEDDY MARTE 07/19/21 Reported Medications Trazodone Hcl (Trazodone Hcl) 100 Mg Tab, 1 TAB PO QPM, #30 TAB 1 Refill 11/02/23 Quetiapine Fumerate (Seroquel) 50 Mg Tab, 1 TAB PO QPM, #30 TAB 2 Refills 11/02/23 Hydrocodone-Acetaminophen (Hydrocodone Bitartrate/AC 5-325 mg) 1 Tab Tab, 1 TAB PO Q6HR PRN for PAIN SCALE 7 THRU 10, TAB 03/22/22 Information Source: Patient, Emergency Med Personnel Mode of Arrival: EMS Past Medical History PAST MEDICAL HISTORY: Anxiety, COPD, HTN, Schizophrenia Surgical History: HEALTH CARE FACILITY ADMINISTRATOR History: No Pertinent HEALTH CARE FACILITY ADMINISTRATOR History Family History Family History: Unknown Social History Smoker: Cigarettes, Less Than 1 Pack/Day Alcohol: Occasionally Drugs: Methamphetamine Lives In: Homeless Constitutional: reports: others (cold sensation ) All Other Systems: Reviewed and Negative (negative unless otherwise stated above or in HPI) Physical Exam General Appearance: No Apparent Distress, Normal HEENT: Normal ENT Inspection, Pharynx Normal, TMs Normal Neck: Full Range of Motion, Non-Tender, Normal, Normal Inspection Respiratory: Chest Non-Tender, Lungs Clear, No Accessory Muscle Use, No Respiratory Distress, Normal Breath Sounds Cardiovascular: No Edema, No JVD, No Murmur, No Gallop, Normal Peripheral Pulses, Regular Rate/Rhythm Breast Exam: Deferred Gastrointestinal: No Organomegaly, Non Tender, No Pulsatile Mass, Normal Bowel Sounds, Soft Genitalia: Deferred Pelvic: Deferred Rectal: Deferred Extremities: No calf tenderness, Normal capillary refill, Normal inspection, Normal range of motion, Non-tender, No pedal edema Musculoskeletal : Apperance: Normal Neurologic: Alert, interior designer II-XII nml as Tested, No Motor Deficits, Normal Affect, Normal Mood, No Sensory Deficits Cerebellar Function: Normal Reflexes: Normal Skin: Dry, Normal Color, Warm Lymphatic: No Adenopathy Was a procedure done? Was a procedure done?: No Differential Dx Considerations may include: cold exposure, chronic pain X-Ray, Labs, Meds, VS Vital Signs Date Time Temp Pulse Resp B/P (MAP) Pulse Ox O2 Delivery O2 Flow Rate FiO2 05/19/24 20:16 98.2 80 18 184/112 (136) 97 Ten was given clonidine for her blood pressure subsequently discharged a placed in ED ops for school social worker consult. The patient is homeless. Time of 1ST Reevaluation: 20:45 Reevaluation 1ST: Unchanged Patient Education/Counseling: Diagnosis, Treatment Family Education/Counseling: No Family Present Departure 1 Departure Time of Disposition: 23:00 Impression: Primary Impression: Hypertensive urgency Disposition: 01 HOME / SELF CARE / HOMELESS Condition: Stable Additional Instructions: Reassessed patient, vital signs stable. Denies any new symptoms. Patient is able to tolerate PO and ambulate/be mobile at their baseline without concern. Risks and benefits of all medications given or prescribed, if any, discussed. All lab work, imaging and diagnostic studies were reviewed by me. The patient was counseled extensively on my clinical impression, diagnosis, expected course of the disease, and plan, including their follow-up care. Will discharge patient. Patient instructed to follow up with Primary Care Physician within 24-48 hours. Strict return precautions given for further exacerbation of symptoms or for new symptoms. The patient was given the opportunity to ask questions and all questions were answered by myself and the nursing/tech staff. Patient is in agreement with the care plan. The patient verbally expressed understanding of the discharge instructions, including the reasons to return to the Emergency Department. Discharged With: Self Critical Care Note Critical Care Time?: No Stability Stability form required: No Heart Score Heart Score: Heart Score Response (Comments) Value History N/A 0 EKG N/A 0 Age N/A 0 Risk Factors N/A 0 Troponin N/A 0 Total 0 I personally scribed for RIGOBERTO LEONARDO MD ([email or web address]) on 05/19/24 at 21:04. Electronically submitted by Tomas Mccormick ([email or web address]). RIGOBERTO LEONARDO MD May 19, 2024 21:04
[2024-05-20] MEDS: cloNIDine HCL 0.1 MG TAB PO ONE ×2 (03:05)
[2024-05-20 03:17] VITALS: BP 188/120; PULSE 85; RESP 18; O2SAT 95
== END 2024-05-20 03:15 | disposition home or self-care (01) ==
LOC: EDSEX 20:06 → ER 20:06 → EDBD 20:06 → ER 05-20 03:15
DX: I16.0 Hypertensive urgency (principal); I10 Essential (primary) hypertension; F41.9 Anxiety disorder, unspecified; J44.9 Chronic obstructive pulmonary disease, unspecified; F20.9 Schizophrenia, unspecified; F17.210 Nicotine dependence, cigarettes, uncomplicated; F15.10 Other stimulant abuse, uncomplicated; Z59.00 Homelessness unspecified; Z79.1 Long term (current) use of non-steroidal anti-inflammatories (NSAID); Z79.52 Long term (current) use of systemic steroids; Z79.899 Other long term (current) drug therapy; Z88.5 Allergy status to narcotic agent; Z88.2 Allergy status to sulfonamides

== ENCOUNTER 2024-05-20 06:21 | Emergency (ER) | payer MEDICAID ==
[~2024-05-20] VITALS: Ht 170.2 cm; Wt 66.0 kg
[2024-05-20 10:26] VITALS: BP 153/109; PULSE 75; RESP 20; O2SAT 97
--- NOTE | 2024-05-20 11:55 | ED.PDOC ---
History of Present Illness HPI Comments 63Y F with PMHx HTN, anxiety, and schizophrenia presents to ED for chief complaint high blood pressure. Pt states her blood pressure has been elevated for one week and she has been out of her HTN medication for 5 days. Pt was unable to say how she knew her blood pressure was elevated in the last week but says she was told today during triage that her systolic BP was 180. Vitals signs documented in record show BP of 153/109. Pt denies chest pain, SOB, headache, and all other symptoms. Pt became upset during MD evaluation and stated she was going to leave the hospital. Chief Complaint: Body Pain Time Seen by MD: 11:37 Primary Care Provider: UNKNOWN Reviewed Notes: Nurses Notes, Medications, Allergies Allergies: Coded Allergies: Codeine (Verified Allergy, Unknown, 03/23/22) vomiting Home Meds Active Scripts Sulfamethoxazole W/Trimethopri (Bactrim Ds Tablet) 1 Tab Tb, 1 TAB PO BID for 7 Days, #14 TAB 0 Refills Prov:KATHRINE MEADE 03/26/24 Cyanocobalamin (B12) 1,000 Mcg Cap, 1000 MCG PO DAILY for 7 Days, #1 CAP 0 Refills Prov:HASEEB ROJAS RESIDENT 11/05/23 Sucralfate (CARAFATE) 1 Gm Tab, 1 GM OR QID for 30 Days, #120 TAB 0 Refills Prov:HASEEB ROJAS RESIDENT 11/05/23 Pantoprazole Sodium Sesquihydr (Pantoprazole Sodium) 40 Mg Tab, 40 MG PO BID for 30 Days, #60 TAB 2 Refills Prov:HASEEB ROJAS RESIDENT 11/05/23 Ibuprofen (Ibuprofen) 800 Mg Tab, 1 TAB PO TID, #30 TAB Prov:TEDDY MARTE 10/11/23 Ibuprofen (Ibuprofen) 800 Mg Tab, 1 TAB PO TID, #30 TAB Prov:TEDDY MARTE 09/12/23 Baclofen (Baclofen) 5 Mg Tab, 5 MG PO BID, #10 TAB As needed for muscle spasm Prov:EDGARD MARS Q SUPERVISOR VACUUM METALIZING 08/26/23 Naproxen (NAPROSYN TABLET) 500 Mg Tb, 1 TAB PO BID, #10 TAB as needed for pain Prov:DWIGHT MARSA Q SUPERVISOR VACUUM METALIZING 08/26/23 Albuterol Sulfate (Albuterol Sulfate Hfa) 108 Mcg/Act Aer, 108 MCG IN TID, #90 AER Prov:TEDDY MARTE 04/06/23 Prednisone (Prednisone) 20 Mg Tab, 60 MG PO DAILY, #15 MG Prov:TEDDY MARTE 04/06/23 Promethazine-Dm (Promethazine Dm 6.25-15 mg/5Ml) 1 Diana Diana, 5 ML PO TID, #150 ML Prov:TEDYD MARTE 04/06/23 Ibuprofen Micronized (Ibuprofen) 800 Mg Tab, 800 MG PO Q8HP PRN, #20 TAB Prov:MARVIN GARCIA PAC 11/09/22 Hydrocodone-Acetaminophen (Hydrocodone Bitartrate/AC 10-325 mg) 1 Tab Tab, 1 TAB PO Q4HPRN PRN, #15 TAB 0 Refills Prov:HARPREET MADDOX 11/09/22 Multiple Vitamin (Mvi Tab) 1 Tab Tb, 1 TAB PO DAILY for 30 Days, #30 TAB Prov:JACY POST MD 03/26/22 Levofloxacin (Levaquin) 500 Mg Tab, 500 MG PO DAILY for 7 Days, #7 TAB Prov:JACY POST MD 03/26/22 Pantoprazole Sodium Sesquihydr (Pantoprazole Sodium) 40 Mg Tab, 40 MG PO DAILY for 30 Days, #30 TAB Prov:JACY POST MD 03/26/22 Ibuprofen Micronized (MOTRIN TABLET) 600 Mg Tb, 600 MG PO TID for 7 Days, #21 TAB Prov:JACY POST MD 03/26/22 Meloxicam (Mobic) 7.5 Mg Tab, 7.5 MG PO BID, #30 TAB Prov:TEDDY MARTE 07/19/21 Reported Medications Trazodone Hcl (Trazodone Hcl) 100 Mg Tab, 1 TAB PO QPM, #30 TAB 1 Refill 11/02/23 Quetiapine Fumerate (Seroquel) 50 Mg Tab, 1 TAB PO QPM, #30 TAB 2 Refills 11/02/23 Hydrocodone-Acetaminophen (Hydrocodone Bitartrate/AC 5-325 mg) 1 Tab Tab, 1 TAB PO Q6HR PRN for PAIN SCALE 7 THRU 10, TAB 03/22/22 Information Source: Patient Mode of Arrival: Wheelchair Severity: Mild Timing: Days Medication Refill: Ran out of Medication, For: Hypertension Past Medical History PAST MEDICAL HISTORY: Anxiety, COPD, HTN, Schizophrenia Surgical History: ORACLE MANAGER History: No Pertinent ORACLE MANAGER History Family History Family History: Unknown Social History Smoker: Cigarettes, Less Than 1 Pack/Day Alcohol: Occasionally Drugs: Methamphetamine Lives In: Homeless Constitutional: denies: chills, diaphoresis, fatigue, fever, malaise, sweats, weakness, others EENTM: denies: blurred vision, double vision, ear bleeding, ear discharge, ear drainage, ear pain, ear ringing, eye pain, eye redness, hearing loss, mouth pain, mouth swelling, nasal discharge, nose bleeding, nose congestion, nose pain, photophobia, tearing, throat pain, throat swelling, voice changes, others Respiratory: denies: cough, hemoptysis, orthopnea, SOB at rest, shortness of breath, SOB with excertion, stridor, wheezing, others Cardiovascular: denies: chest pain, dizzy spells, diaphoresis, Dyspnea on exertion, edema, irregular heart beat, left arm pain, lightheadedness, palpitations, PND, syncope, others Gastrointestinal: denies: abdomen distended, abdominal pain, blood streaked bowels, constipated, diarrhea, dysphagia, difficulty swallowing, hematemesis, melena, nausea, poor appetite, poor fluid intake, rectal bleeding, rectal pain, vomiting, others Genitourinary: denies: abnormal vagina bleeding, burning, dyspareunia, dysuria, flank pain, frequency, hematuria, incontinence, pain, , vagina discharge, urgency, others Neurological: denies: dizziness, fainting, headache, left sided numbness, left sided weakness, numbness, paresthesia, pre-existing deficit, right sided numbness, right sided weakness, seizure, speech problems, tingling, tremors, weakness, others Musculoskeletal: denies: back pain, gout, joint pain, joint swelling, muscle pain, muscle stiffness, neck pain, others Integumetry: denies: bruises, change in color, change in hair/nails, dryness, laceration, lesions, lumps, rash, wounds, others Allergic/Immunocompromised: denies: Difficulty Healing, Frequent Infections, Hives, Itching, others Hematologic/Lymphatic: denies: anemia, blood clots, easy bleeding, easy bruising, swollen glands, others Endocrine: denies: excessive hunger, excessive sweating, excessive thirst, excessive urination, flushing, intolerance to cold, intolerance to heat, unexplained weight gain, unexplained weight loss, others Psychiatric: denies: anxiety, bipolar disorder, depression, hopeless, panic disorder, schizophrenia, sleepless, suicidal, others All Other Systems: Reviewed and Negative Physical Exam General Appearance: No Apparent Distress, Normal HEENT: Normal ENT Inspection, Pharynx Normal, TMs Normal Neck: Full Range of Motion, Non-Tender, Normal, Normal Inspection Respiratory: Chest Non-Tender, Lungs Clear, No Accessory Muscle Use, No Respiratory Distress, Normal Breath Sounds Cardiovascular: No Edema, No JVD, No Murmur, No Gallop, Normal Peripheral Pulses, Regular Rate/Rhythm Breast Exam: Deferred Gastrointestinal: No Organomegaly, Non Tender, No Pulsatile Mass, Normal Bowel Sounds, Soft Genitalia: Deferred Pelvic: Deferred Rectal: Deferred Extremities: No calf tenderness, Normal capillary refill, Normal inspection, Normal range of motion, Non-tender, No pedal edema Musculoskeletal : Apperance: Normal Neurologic: Alert, welding equipment repairer II-XII nml as Tested, No Motor Deficits, Normal Affect, Normal Mood, No Sensory Deficits Cerebellar Function: Normal Reflexes: Normal Skin: Dry, Normal Color, Warm Lymphatic: No Adenopathy Was a procedure done? Was a procedure done?: No Differential Dx Considerations may include: hypertension, anxiety, substance abuse X-Ray, Labs, Meds, VS Vital Signs Date Time Temp Pulse Resp B/P (MAP) Pulse Ox O2 Delivery O2 Flow Rate FiO2 05/20/24 10:26 97.9 75 20 153/109 (561) 97 Time of 1ST Reevaluation: 11:45 Reevaluation 1ST: Unchanged Patient Education/Counseling: Diagnosis, Treatment, Prognosis, Need For Follow Up Family Education/Counseling: No Family Present Additional Information I reviewed the following notes from patient's past medical encounters: [facility] ER 05/19/2024, 03/25/2024, 10/11/2023, 09/12/2023; [facility] discharge 11/06/2023, 03/26/2022, 05/10/2017 The following tests were ordered, and results were reviewed by me: None Additional Information was gathered from interviewing the following independent historians: None I reviewed and agreed with the following test results read by other providers: None I discussed treatment and results with medical personnel. Departure 1 Departure Time of Disposition: 11:58 Impression: Primary Impression: Hypertension Qualified Codes: I10 - Essential (primary) hypertension Disposition: 01 HOME / SELF CARE / HOMELESS Condition: Good Discharged With: Self Critical Care Note Critical Care Time?: No Stability Stability form required: No Heart Score Heart Score: Heart Score Response (Comments) Value History N/A 0 EKG N/A 0 Age N/A 0 Risk Factors N/A 0 Troponin N/A 0 Total 0 I personally scribed for ISAI REARDON MD ([email or web address]) on 05/20/24 at 11:55. Electronically submitted by Malena Llanos ([email or web address]). ISAI REARDON MD May 20, 2024 11:55
== END 2024-05-20 12:06 | disposition home or self-care (01) ==
LOC: ER 06:21
DX: I10 Essential (primary) hypertension (principal); J44.9 Chronic obstructive pulmonary disease, unspecified; F15.10 Other stimulant abuse, uncomplicated; F41.9 Anxiety disorder, unspecified; F20.9 Schizophrenia, unspecified; F17.210 Nicotine dependence, cigarettes, uncomplicated; Z59.00 Homelessness unspecified; Z79.1 Long term (current) use of non-steroidal anti-inflammatories (NSAID); Z79.52 Long term (current) use of systemic steroids; Z79.899 Other long term (current) drug therapy; Z88.5 Allergy status to narcotic agent

== ENCOUNTER 2024-07-01 17:09 | Emergency (ER) | payer MEDICAID, OTHER ==
[~2024-07-01] VITALS: Ht 157.5 cm; Wt 60.0 kg
[2024-07-01 17:15] VITALS: BP 149/113; PULSE 83; RESP 16; O2SAT 97
[2024-07-01] MEDS: SODIUM CHLORIDE 0.9% 1,000 ML IV ONE (18:23)
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
--- NOTE | 2024-07-01 18:56 | DVH ---
EXAM: CT HEAD WITHOUT CONTRAST INDICATION: trauma TECHNIQUE: CT of the head without intravenous contrast. Radiation Dose Information: CT Dose: CTDI volume is 54.73 mGy. Dose-length product is 969.24 mGy*cm The dose indicators for CT are the volume Computed Tomography (CT) Dose Index (CTDIvol) and the Dose Length Product (DLP), and are measured in units of mGy and mGy-cm, respectively. These indicators are not patient dose, but values generated from the CT scanner acquisition factors. The report includes radiation exposure data for exposures received during this examination. COMPARISON: CT HEAD WITHOUT CONTRAST on DOS: 11/08/22 FINDINGS: There is no evidence of acute intracranial hemorrhage, extra-axial collection, mass effect, midline s hift, herniation or hydrocephalus. The ventricles, sulci and cisterns are age appropriate. The scruggs-white differentiation is intact. Patchy periventricular and subcortical white matter hypoattenuation is nonspecific but may be related to small vessel ischemic disease. The visualized paranasal sinuses and mastoid air cells are clear. Soft tissue swelling over the right frontal skull. No fracture no intracranial hemorrhage. IMPRESSION: 1. Soft tissue swelling over the right frontal skull 2. No acute fracture no intracranial hemorrhage 3. No CT findings of territorial ischemia.
[2024-07-02] MEDS ORDERED: ACET-1304 PO (08:29)
== END 2024-07-01 22:22 | disposition home or self-care (01) ==
LOC: EDBD 17:09 → ER 17:09
DX: S00.81XA Abrasion of other part of head, initial encounter (principal); F10.129 Alcohol abuse with intoxication, unspecified; F17.210 Nicotine dependence, cigarettes, uncomplicated; F20.9 Schizophrenia, unspecified; F41.9 Anxiety disorder, unspecified; I10 Essential (primary) hypertension; J44.9 Chronic obstructive pulmonary disease, unspecified; R51.9 Headache, unspecified; Z79.899 Other long term (current) drug therapy; Z88.5 Allergy status to narcotic agent
CPT/HCPCS: 36415; 70450; 80320; 96360; 96361; 99284; J7030

== ENCOUNTER 2024-07-02 07:15 | Emergency (ER) | payer MEDICAID ==
[~2024-07-02] VITALS: Ht 172.7 cm; Wt 79.0 kg
[2024-07-02 07:34] VITALS: BP 158/95; PULSE 81; RESP 18; TEMP 98.1; O2SAT 96
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
--- NOTE | 2024-07-02 08:19 | DVH ---
CLINICAL INDICATION: FALL TECHNIQUE: 3 radiographic views of the right hip were obtained. Comparison: XY R HIP COMPLETE XRAY on DOS: 10/11/23, XY R HIP COMPLETE XRAY on DOS: 09/12/23, XY R HIP C OMPLETE XRAY on DOS: 04/05/23 FINDINGS/IMPRESSION: There is a malleable plate and several screws in the right iliac bone. There is no evidence of acute fracture or dislocation. Severe right hip joint space narrowing and subchondral sclerosis on both sides of the right hip joint compatible with posttraumatic osteoarthritis. The alignment is anatomical.
--- NOTE | 2024-07-02 08:21 | DVH ---
XY R HAND 3 VIEW XRAY, INDICATION: FALL TECHNICAL DATA: Frontal, oblique and lateral views were obtained of the right hand. COMPARISON: XY R ANKLE 2 VIEW XRAY on DOS: 04/03/23 FINDINGS: No fracture is identified. Narrowing of the 4th and 5th metacarpophalangeal joint and the distal inte rphalangeal joint of the 3rd, 4th and 5th digits. Alignment is anatomic. Soft tissues are within norm al limits. IMPRESSION: 1. No acute fracture or dislocation of the right hand.
[2024-07-02] MEDS ORDERED: ACET-1304 PO (08:29)
[2024-07-02] MEDS: HYDROcodone-ACET 5/325MG TAB PO ONE (08:42)
== END 2024-07-02 08:44 | disposition home or self-care (01) ==
LOC: ER 07:15
DX: S76.011A Strain of muscle, fascia and tendon of right hip, initial encounter (principal); S63.91XA Sprain of unspecified part of right wrist and hand, initial encounter; M16.11 Unilateral primary osteoarthritis, right hip; J44.9 Chronic obstructive pulmonary disease, unspecified; F41.9 Anxiety disorder, unspecified; F20.9 Schizophrenia, unspecified; F15.10 Other stimulant abuse, uncomplicated; F10.129 Alcohol abuse with intoxication, unspecified; F17.210 Nicotine dependence, cigarettes, uncomplicated; I10 Essential (primary) hypertension; Z59.00 Homelessness unspecified; Z79.1 Long term (current) use of non-steroidal anti-inflammatories (NSAID); Z79.52 Long term (current) use of systemic steroids; Z79.899 Other long term (current) drug therapy; Z88.5 Allergy status to narcotic agent
CPT/HCPCS: 73130; 73502

== ENCOUNTER 2024-09-02 08:24 | Emergency (ER) | payer MEDICAID ==
[~2024-09-02] VITALS: Ht 167.6 cm; Wt 72.7 kg
[~2024-09-02 08:24] MED LIST changes: +ACET-1304 PO
[2024-09-02 09:07] VITALS: PULSE 60; RESP 18; O2SAT 97
[2024-09-02] MEDS: cloNIDine HCL 0.1 MG TAB PO ONE (09:11)
--- NOTE | 2024-09-02 09:13 | ED.PDOC ---
General Chief Complaint: Urinary Comments pt is homeless. found sitting outside a store in her urine. pt reports dysuria for 3 day. she has frequent urination, urgency, dysuria Time Seen by MD: 08:46 Primary Care Provider: ? Allergies: Coded Allergies: Codeine (Verified Allergy, Unknown, 03/23/22) vomiting Home Meds Active Scripts Acetaminophen (Tylenol Extra Strength Fo) 500 Mg Tab, 1000 MG PO BID, #30 TAB Prov:TEDDY MARTE 07/02/24 Sulfamethoxazole W/Trimethopri (Bactrim Ds Tablet) 1 Tab Tb, 1 TAB PO BID for 7 Days, #14 TAB 0 Refills Prov:KATHRINE MEADE 03/26/24 Cyanocobalamin (B12) 1,000 Mcg Cap, 1000 MCG PO DAILY for 7 Days, #1 CAP 0 Refills Prov:HASEEB [facility] 11/05/23 Sucralfate (CARAFATE) 1 Gm Tab, 1 GM OR QID for 30 Days, #120 TAB 0 Refills Prov:HASEEB [facility] 11/05/23 Pantoprazole Sodium Sesquihydr (Pantoprazole Sodium) 40 Mg Tab, 40 MG PO BID for 30 Days, #60 TAB 2 [facility] 11/05/23 Ibuprofen (Ibuprofen) 800 Mg Tab, 1 TAB PO TID, #30 TAB Prov:TEDDY MARTE 10/11/23 Ibuprofen (Ibuprofen) 800 Mg Tab, 1 TAB PO TID, #30 TAB Prov:TEDDY MARTE 09/12/23 Baclofen (Baclofen) 5 Mg Tab, 5 MG PO BID, #10 TAB As needed for muscle spasm Prov:EDGARD MARS Q SYNTHETIC RESIN OPERATOR 08/26/23 Naproxen (NAPROSYN TABLET) 500 Mg Tb, 1 TAB PO BID, #10 TAB as needed for pain Prov:REJI MARSALDA Q SYNTHETIC RESIN OPERATOR 08/26/23 Albuterol Sulfate (Albuterol Sulfate Hfa) 108 Mcg/Act Aer, 108 MCG IN TID, #90 AER Prov:TEDDY MARTE 04/06/23 Prednisone (Prednisone) 20 Mg Tab, 60 MG PO DAILY, #15 MG Prov:TEDDY MARTE 04/06/23 Promethazine-Dm (Promethazine Dm 6.25-15 mg/5Ml) 1 Diana Diana, 5 ML PO TID, #150 ML Prov:TEDDY MARTE 04/06/23 Ibuprofen Micronized (Ibuprofen) 800 Mg Tab, 800 MG PO Q8HP PRN, #20 TAB Prov:MARVIN GARCIA PAC 11/09/22 Hydrocodone-Acetaminophen (Hydrocodone Bitartrate/AC 10-325 mg) 1 Tab Tab, 1 TAB PO Q4HPRN PRN, #15 TAB 0 Refills Prov:HARPREET MADDOX PA 11/09/22 Multiple Vitamin (Mvi Tab) 1 Tab Tb, 1 TAB PO DAILY for 30 Days, #30 TAB Prov:JACY POST MD 03/26/22 Levofloxacin (Levaquin) 500 Mg Tab, 500 MG PO DAILY for 7 Days, #7 TAB Prov:JACY POST MD 03/26/22 Pantoprazole Sodium Sesquihydr (Pantoprazole Sodium) 40 Mg Tab, 40 MG PO DAILY for 30 Days, #30 TAB Prov:JACY POST MD 03/26/22 Ibuprofen Micronized (MOTRIN TABLET) 600 Mg Tb, 600 MG PO TID for 7 Days, #21 TAB Prov:JACY POST MD 03/26/22 Meloxicam (Mobic) 7.5 Mg Tab, 7.5 MG PO BID, #30 TAB Prov:TEDDY MARTE 07/19/21 Reported Medications Trazodone Hcl (Trazodone Hcl) 100 Mg Tab, 1 TAB PO QPM, #30 TAB 1 Refill 11/02/23 Quetiapine Fumerate (Seroquel) 50 Mg Tab, 1 TAB PO QPM, #30 TAB 2 Refills 11/02/23 Hydrocodone-Acetaminophen (Hydrocodone Bitartrate/AC 5-325 mg) 1 Tab Tab, 1 TAB PO Q6HR PRN for PAIN SCALE 7 THRU 10, TAB 03/22/22 Information Source: Patient, Emergency Med Personnel Mode of Arrival: EMS Severity: Mild Timing: Hours Duration: Since onset Onset: Spontaneous Symptoms: Dysuria, Frequency, Urgency History of: None Location: None Modifying factors: None associated signs and symptoms: Dysuria, Frequency, Urgency Past Medical History PAST MEDICAL HISTORY: Anxiety, COPD, HTN, Schizophrenia Surgical History: CYCLE DIRECTOR History: No Pertinent CYCLE DIRECTOR History Family History Family History: Unknown Social History Smoker: Cigarettes, Less Than 1 Pack/Day Alcohol: Occasionally Drugs: Methamphetamine Lives In: Homeless Constitutional: denies: chills, diaphoresis, fatigue, fever, malaise, sweats, weakness, others EENTM: denies: blurred vision, double vision, ear bleeding, ear discharge, ear drainage, ear pain, ear ringing, eye pain, eye redness, hearing loss, mouth pain , mouth swelling, nasal discharge, nose bleeding, nose congestion, nose pain, photophobia, tearing, throat pain, throat swelling, voice changes, others Respiratory: denies: cough, hemoptysis, orthopnea, SOB at rest, shortness of breath, SOB with excertion, stridor, wheezing, others Cardiovascular: denies: chest pain, dizzy spells, diaphoresis, Dyspnea on exertion, edema, irregular heart beat, left arm pain, lightheadedness, palpitations, PND, syncope, others Gastrointestinal: denies: abdomen distended, abdominal pain, blood streaked bowels, constipated, diarrhea, dysphagia, difficulty swallowing, hematemesis, melena, nausea, poor appetite, poor fluid intake, rectal bleeding, rectal pain, vomiting, others Genitourinary: reports: dysuria, frequency, urgency; denies: abnormal vagina bleeding, burning, dyspareunia, flank pain, hematuria, incontinence, pain, , vagina discharge, others Neurological: denies: dizziness, fainting, headache, left sided numbness, left sided weakness, numbness, paresthesia, pre-existing deficit, right sided numbness, right sided weakness, seizure, speech problems, tingling, tremors, weakness, others Musculoskeletal: denies: back pain, gout, joint pain, joint swelling, muscle pain, muscle stiffness, neck pain, others Integumetry: denies: bruises, change in color, change in hair/nails, dryness, laceration, lesions, lumps, rash, wounds, others Allergic/Immunocompromised: denies: Difficulty Healing, Frequent Infections, Hives, Itching, others Hematologic/Lymphatic: denies: anemia, blood clots, easy bleeding, easy bruising, swollen glands, others Endocrine: denies: excessive hunger, excessive sweating, excessive thirst, excessive urination, flushing, intolerance to cold, intolerance to heat, unexplained weight gain, unexplained weight loss, others Psychiatric: denies: anxiety, bipolar disorder, depression, hopeless, panic disorder, schizophrenia, sleepless, suicidal, others All Other Systems: Reviewed and Negative Physical Exam General Appearance: No Apparent Distress, Normal HEENT: Normal ENT Inspection, Pharynx Normal, TMs Normal Neck: Full Range of Motion, Non-Tender, Normal, Normal Inspection Respiratory: Chest Non-Tender, Lungs Clear, No Accessory Muscle Use, No Respiratory Distress, Normal Breath Sounds Cardiovascular: No Edema, No JVD, No Murmur, No Gallop, Normal Peripheral Pulses, Regular Rate/Rhythm Breast Exam: Deferred Gastrointestinal: No Organomegaly, Non Tender, No Pulsatile Mass, Normal Bowel Sounds, Soft Genitalia: Deferred Pelvic: Deferred Rectal: Deferred Extremities: No calf tenderness, Normal capillary refill, Normal inspection, Normal range of motion, Non-tender, No pedal edema Musculoskeletal : Apperance: Normal Neurologic: Alert, rn sexual assault II-XII nml as Tested, No Motor Deficits, Normal Affect, Normal Mood, No Sensory Deficits Cerebellar Function: Normal Reflexes: Normal Skin: Dry, Normal Color, Warm Lymphatic: No Adenopathy Was a procedure done? Was a procedure done?: No Differential Diagnosis Kidney stone (Female): N/A Kidney stone (Male): N/A Penile/Scrotal: UTI Urinary Problem (Male): Bladder Obstruction, Renal Failure, Urinary Retention, UTI Urinary Problem (Female): UTI X-Ray, Labs, Meds, VS Vital Signs Date Time Temp Pulse Resp B/P (MAP) Pulse Ox O2 Delivery O2 Flow Rate FiO2 09/02/24 13:28 98.6 74 20 138/92 (107) 95 98.6 09/02/24 10:28 144/93 09/02/24 09:11 157/124 09/02/24 09:07 60 18 97 Room Air* 0 21 09/02/24 09:07 97.5 60 18 157/124 (135) 97 97.5 09/02/24 08:37 97.9 83 15 168/125 (139) 97 97.9 Lab Test 09/02/24 09:25 Range/Units White Blood Count 5.1 4.4-10.8 10^3/uL Red Blood Count 4.48 4.0-5.20 10^6/uL Hemoglobin 15.2 12.2-16.2 g/dL Hematocrit 44.0 36.0-46.0 % Mean Corpuscular Volume 98.3 80.0-100.0 fL Mean Corpuscular Hemoglobin 34.0 H 28.0-32.0 pg Mean Corpuscular Hemoglobin Concent 34.6 32.0-36.0 g/dL Red Cell Distribution Width 13.4 11.8-14.3 % Platelet Count 246 140-450 10^3/uL Mean Platelet Volume 8.3 6.9-10.8 fL Neutrophils (%) (Auto) 64.9 37.0-80.0 % Lymphocytes (%) (Auto) 26.2 10.0-50.0 % Monocytes (%) (Auto) 7.1 0.0-12.0 % Eosinophils (%) (Auto) 1.1 0.0-7.0 % Basophils (%) (Auto) 0.7 0.0-2.0 % Neutrophils # (Auto) 3.3 1.6-8.6 10 ^3/uL Lymphocytes # (Auto) 1.3 0.4-5.4 10 ^3/uL Monocytes # (Auto) 0.4 0-1.3 10 ^3/uL Eosinophils # (Auto) 0.1 0-0.8 10 ^3/uL Basophils # (Auto) 0 0-0.2 10 ^3/uL Nucleated Red Blood Cells 0.1 % Sodium Level 138 136-145 mmol/L Potassium Level 3.9 3.5-5.1 mmol/L Chloride Level 100 98-107 mmol/L Carbon Dioxide Level 30 20-31 mmol/L Anion Gap 8 5-15 Blood Urea Nitrogen 9 9-23 mg/dL Creatinine 0.79 0.550-1.02 mg/dL Glomerular Filtration Rate Calc 85 >90 mL/min BUN/Creatinine Ratio 11.4 10.0-20.0 Serum Glucose 100 74-106 mg/dL Calcium Level 10.3 8.7-10.4 mg/dL Current Medications Medications (Trade) Dose Ordered Sig/Alana Route Start Time Stop Time Status Last Admin Clonidine HCl (Catapres Tablet) 0.2 mg ONCE ONCE PO 09/02/24 08:45 09/02/24 08:47 DC 09/02/24 09:11 Time of 1ST Reevaluation: 13:36 Reevaluation 1ST: Improved Patient Education/Counseling: Diagnosis, Treatment, Prognosis, Need For Follow Up Family Education/Counseling: No Family Present Additional Information pt is homeless,found sitting in a puddle of her own urine pt has no active symptoms and declined to give UA spp Departure 1 Departure Time of Disposition: 13:36 Impression: Primary Impression: Homeless Additional Impression: Urinary incontinence Qualified Codes: R32 - Unspecified urinary incontinence Disposition: 01 HOME / SELF CARE / HOMELESS Condition: Good Discharged With: Self Critical Care Note Critical Care Time?: No Stability Stability form required: ISAI Nixon MD Sep 02, 2024 09:13
[2024-09-02 09:57] LABS: Basophils # (auto) 0 10 ^3/uL (0-0.2); Basophils % (auto) 0.7 % (0.0-2.0); Eosinophils # (auto) 0.1 10 ^3/uL (0-0.8); Eosinophils % (auto) 1.1 % (0.0-7.0); Hemoglobin 15.2 g/dL (12.2-16.2); Lymphocytes # (auto) 1.3 10 ^3/uL (0.4-5.4); Lymphocytes % (auto) 26.2 % (10.0-50.0); Mean Corpuscular Hgb Conc. 34.6 g/dL (32.0-36.0); Mean Corpuscular Volume 98.3 fL (80.0-100.0); Monocytes # (auto) 0.4 10 ^3/uL (0-1.3); Monocytes % (auto) 7.1 % (0.0-12.0); Neutrophils # (auto) 3.3 10 ^3/uL (1.6-8.6); Neutrophils % (auto) 64.9 % (37.0-80.0); Nucleated Red Blood Cells % 0.1 %; Platelet Count (auto) 246 10^3/uL (140-450); Red Blood Cells 4.48 10^6/uL (4.0-5.20); Red Cell Distribution Width 13.4 % (11.8-14.3); White Blood Cell 5.1 10^3/uL (4.4-10.8)
[2024-09-02 10:06] LABS: Chloride 100 mmol/L (98-107); Potassium 3.9 mmol/L (3.5-5.1); Sodium 138 mmol/L (136-145)
[2024-09-02 10:08] LABS: Anion Gap 8 (5-15); Calcium 10.3 mg/dL (8.7-10.4); Carbon Dioxide 30 mmol/L (20-31)
[2024-09-02 10:13] LABS: BUN/Creatinine Ratio 11.4 (10.0-20.0); Blood Urea Nitrogen 9 mg/dL (9-23); Glucose 100 mg/dL (74-106)
[2024-09-02 13:28] VITALS: BP 138/92; PULSE 74; RESP 20; TEMP 98.6; O2SAT 95
== END 2024-09-02 14:01 | disposition home or self-care (01) ==
LOC: EDSEX 08:24 → EDBD 08:24 → ER 08:24
DX: R32 Unspecified urinary incontinence (principal); R30.0 Dysuria; R35.0 Frequency of micturition; F41.9 Anxiety disorder, unspecified; I10 Essential (primary) hypertension; F20.9 Schizophrenia, unspecified; J44.9 Chronic obstructive pulmonary disease, unspecified; F17.210 Nicotine dependence, cigarettes, uncomplicated; F15.90 Other stimulant use, unspecified, uncomplicated; Z98.890 Other specified postprocedural states; Z79.1 Long term (current) use of non-steroidal anti-inflammatories (NSAID); Z79.52 Long term (current) use of systemic steroids; Z79.899 Other long term (current) drug therapy; Z59.00 Homelessness unspecified; Z88.5 Allergy status to narcotic agent
CPT/HCPCS: 36415; 80048; 85025

== ENCOUNTER 2024-12-05 16:34 | Emergency (ER) | payer MEDICAID ==
[~2024-12-05] VITALS: Ht 162.6 cm; Wt 54.5 kg
[2024-12-05 16:35] VITALS: BP 112/80; PULSE 72; RESP 16; TEMP 97.6; O2SAT 100
--- NOTE | 2024-12-05 16:40 | ED.PDOC ---
History of Present Illness HPI Comments HPI: 64 y F who presents to the ED with no complaints - per EMS, bystander called EMS after they saw pt slumped over in wheelchair - EMS arrived on scene and after checking vitals, noted stable vitals and pt was alert and oriented - pt denies any complaints and was not willing to answer any questions to EMS staff, and noted to belligerent to EMS staff - pt in the ED, otherwise alert and oriented x 4 but denies any complaints - per prior notes, pt is noted to be homeless Past Medical history: Anxiety, COPD, HTN, Schizophrenia Past Surgical history: Medications: DENIES ANY Social History: endorses smoking, ETOH, and drug use(METHAMPHETAMINE use) Allergies: codeine HPI: Poor Historian. REVIEW OF SYSTEMS: CONSTITUTIONAL: Denies acute: fever, diaphoresis, chills, HEAD: Denies acute: headache, photophobia Eyes: Denies acute: Double vision, vision loss, eye pain, eye discharge. EARS: Denies acute: tinnitus, hearing loss, ear discharge, ear pain, THROAT: Denies acute: sore throat, swelling, difficulty swallowing , pain with swallowing, change in voice. NECK: Denies acute: neck pain, neck swelling, stiff neck. HEART: Denies acute : chest pain, palpitations, LUNGS: Denies acute: SOB, wheezing, cough, hemoptysis ABDOMEN: Denies acute: abdominal pain, Vomiting, diarrhea, melena , hematemesis, hematochezia SKIN: Denies acute: rash, redness, lesions, itchiness. EXTREMITIES: Denies acute: calf pain, numbness, tingling, weakness, denies pain in extremity. Denies acute: Low back pain. Neuro: Denies acute: focal neurological deficit, motor or sensory focal neurological deficit, tremors, seizure like activity, confusion, dizziness, change in mental status, loss of bowel or bladder function, cauda equina like symptoms. : Denies acute: dysuria, hematuria, flank pain, increase in urinary frequency. PSYCH: Denies acute: hallucination, suicidal ideation, homicidal ideation. FEMALE: Denies acute: abnormal vaginal bleeding, foul odor, unusual discharge. PHYSICAL EXAM: General: --no------acute distress, awake and alert. Head: normocephalic, atraumatic. Neck: supple, trachea is midline, no swelling. Throat: Normal phonation. Eyes:, no erythema, no purulent discharge, no proptosis, no icterus. Heart: regular rate, regular rhythm, no significant murmur appreciated. Lungs: no apparent respiratory distress, Able to speak in full sentences. No wheezing, no rhonchi, no crackles. No stridors Clear to auscultation bilaterally. Abdomen: non tender to palpation, non distended, soft, no guarding, no rebound, + bowel sounds. Neuro: Awake, Alert, oriented to name, self, situation, follows commands GCS=15. Speech is normal. Skin: no petechia, no purpura, no cyanosis, non-pale, not jaundice. Lower extremities: --no - Pitting edema no deformity, no focal swelling, no calf TTP. Makes eye contact. moves all four extremities. Face: no apparent facial droop. ED COURSE: DISCLAIMER: This medical document was created using an electronic medical record system with voice recognition software and computerized dictation system. Although this document has been carefully reviewed, there might still be some phonetic and typographical errors. Occasional wrong-word or "sound-alike" substitutions may have occurred due to the inherent limitations of voice recognition software. These areas are purely typographical due to imperfections of the software programs and do not reflect any compromise in the patient's medical care. Please read the chart carefully and recognize, using context, where these substitutions have occurred. Time Seen by MD: 16:45 Primary Care Provider: ? Reviewed Notes: Swine Extension Field Specialist Notes Allergies: Coded Allergies: Codeine (Verified Allergy, Unknown, 03/23/22) vomiting Home Meds Active Scripts Acetaminophen (Tylenol Extra Strength Fo) 500 Mg Tab, 1000 MG PO BID, #30 TAB Prov:TEDDY MARTE 07/02/24 Sulfamethoxazole W/Trimethopri (Bactrim Ds Tablet) 1 Tab Tb, 1 TAB PO BID for 7 Days, #14 TAB 0 Refills Prov:KATHRINE MEADE 03/26/24 Cyanocobalamin (B12) 1,000 Mcg Cap, 1000 MCG PO DAILY for 7 Days, #1 CAP 0 Refills Prov:HASEEB [facility] 11/05/23 Sucralfate (CARAFATE) 1 Gm Tab, 1 GM OR QID for 30 Days, #120 TAB 0 Refills Prov:HASEEB RO[facility] 11/05/23 Pantoprazole Sodium Sesquihydr (Pantoprazole Sodium) 40 Mg Tab, 40 MG PO BID for 30 Days, #60 TAB 2 Refills Prov:HASEEB RO[facility] 11/05/23 Ibuprofen (Ibuprofen) 800 Mg Tab, 1 TAB PO TID, #30 TAB Prov:TEDDY MARTE 10/11/23 Ibuprofen (Ibuprofen) 800 Mg Tab, 1 TAB PO TID, #30 TAB Prov:TEDDY MARTE 09/12/23 Baclofen (Baclofen) 5 Mg Tab, 5 MG PO BID, #10 TAB As needed for muscle spasm Prov:EDGARD MARS Q IMPORT EXPORT CLERK 08/26/23 Naproxen (NAPROSYN TABLET) 500 Mg Tb, 1 TAB PO BID, #10 TAB as needed for pain Prov:EDGARD MARS Q IMPORT EXPORT CLERK 08/26/23 Albuterol Sulfate (Albuterol Sulfate Hfa) 108 Mcg/Act Aer, 108 MCG IN TID, #90 AER Prov:TEDDY MARTE 04/06/23 Prednisone (Prednisone) 20 Mg Tab, 60 MG PO DAILY, #15 MG Prov:TEDDY MARTE 04/06/23 Promethazine-Dm (Promethazine Dm 6.25-15 mg/5Ml) 1 Diaan Diana, 5 ML PO TID, #150 ML Prov:TEDDY MARTE 04/06/23 Ibuprofen Micronized (Ibuprofen) 800 Mg Tab, 800 MG PO Q8HP PRN, #20 TAB Prov:MARVIN GARCIA PAC 11/09/22 Hydrocodone-Acetaminophen (Hydrocodone Bitartrate/AC 10-325 mg) 1 Tab Tab, 1 TAB PO Q4HPRN PRN, #15 TAB 0 Refills Prov:HARPREET MADDOX 11/09/22 Multiple Vitamin (Mvi Tab) 1 Tab Tb, 1 TAB PO DAILY for 30 Days, #30 TAB Prov:JACY POST MD 03/26/22 Levofloxacin (Levaquin) 500 Mg Tab, 500 MG PO DAILY for 7 Days, #7 TAB Prov:JACY POST MD 03/26/22 Pantoprazole Sodium Sesquihydr (Pantoprazole Sodium) 40 Mg Tab, 40 MG PO DAILY for 30 Days, #30 TAB Prov:JACY POST MD 03/26/22 Ibuprofen Micronized (MOTRIN TABLET) 600 Mg Tb, 600 MG PO TID for 7 Days, #21 TAB Prov:JACY POST MD 03/26/22 Meloxicam (Mobic) 7.5 Mg Tab, 7.5 MG PO BID, #30 TAB Prov:TEDDY MARTE 07/19/21 Reported Medications Trazodone Hcl (Trazodone Hcl) 100 Mg Tab, 1 TAB PO QPM, #30 TAB 1 Refill 11/02/23 Quetiapine Fumerate (Seroquel) 50 Mg Tab, 1 TAB PO QPM, #30 TAB 2 Refills 11/02/23 Hydrocodone-Acetaminophen (Hydrocodone Bitartrate/AC 5-325 mg) 1 Tab Tab, 1 TAB PO Q6HR PRN for PAIN SCALE 7 THRU 10, TAB 03/22/22 Information Source: Patient, Emergency Med Personnel Mode of Arrival: EMS Past Medical History PAST MEDICAL HISTORY: Anxiety, COPD, HTN, Schizophrenia Surgical History: SAFETY ANALYST History: No Pertinent SAFETY ANALYST History Family History Family History: Unknown Social History Smoker: Cigarettes, Less Than 1 Pack/Day Alcohol: Occasionally Drugs: Methamphetamine Lives In: Homeless Was a procedure done? Was a procedure done?: No Differential Dx Considerations may include: Patient eloped X-Ray, Labs, Meds, VS Vital Signs Date Time Temp Pulse Resp B/P (MAP) Pulse Ox O2 Delivery O2 Flow Rate FiO2 12/05/24 16:35 97.6 72 16 112/80 (91) 100 97.6 Lab Test 12/05/24 16:57 Range/Units White Blood Count 6.7 4.4-10.8 10^3/uL Red Blood Count 4.31 4.0-5.20 10^6/uL Hemoglobin 14.7 12.2-16.2 g/dL Hematocrit 42.6 36.0-46.0 % Mean Corpuscular Volume 98.8 80.0-100.0 fL Mean Corpuscular Hemoglobin 34.2 H 28.0-32.0 pg Mean Corpuscular Hemoglobin Concent 34.6 32.0-36.0 g/dL Red Cell Distribution Width 14.7 H 11.8-14.3 % Platelet Count 271 140-450 10^3/uL Mean Platelet Volume 7.7 6.9-10.8 fL Neutrophils (%) (Auto) 46.5 37.0-80.0 % Lymphocytes (%) (Auto) 46.4 10.0-50.0 % Monocytes (%) (Auto) 4.9 0.0-12.0 % Eosinophils (%) (Auto) 1.5 0.0-7.0 % Basophils (%) (Auto) 0.7 0.0-2.0 % Neutrophils # (Auto) 3.1 1.6-8.6 10 ^3/uL Lymphocytes # (Auto) 3.1 0.4-5.4 10 ^3/uL Monocytes # (Auto) 0.3 0-1.3 10 ^3/uL Eosinophils # (Auto) 0.1 0-0.8 10 ^3/uL Basophils # (Auto) 0 0-0.2 10 ^3/uL Nucleated Red Blood Cells 0.0 % Sodium Level 144 136-145 mmol/L Potassium Level 3.1 L 3.5-5.1 mmol/L Chloride Level 107 98-107 mmol/L Carbon Dioxide Level 26 20-31 mmol/L Anion Gap 11 5-15 Blood Urea Nitrogen 14 9-23 mg/dL Creatinine 0.92 0.550-1.02 mg/dL Glomerular Filtration Rate Calc 70 >90 mL/min BUN/Creatinine Ratio 15.2 10.0-20.0 Serum Glucose 91 74-106 mg/dL Calcium Level 10.1 8.7-10.4 mg/dL Magnesium Level 1.6 1.6-2.6 mg/dL Total Bilirubin 0.4 0.2-1.0 mg/dL Aspartate Amino Transferase (AST) 25 13-40 U/L Alanine Aminotransferase (ALT) 10 7-40 U/L Alkaline Phosphatase 135 H 46-116 U/L Troponin I High Sensitivity < 3 L </=34 ng/L B-Type Natriuretic Peptide 37.03 0-100 pg/mL Total Protein 6.9 5.7-8.2 g/dL Albumin 4.6 3.2-4.8 g/dL Plasma/Serum Blood Alcohol 269.5 H <10 mg/dL [facility] [id number] [place] [id number] Ph: [phone] DIAGNOSTIC IMAGING Diagnostic Imaging Report : [id number] Signed PATIENT: LUIS CRANE ACCT: [id number] UNIT: [id number] : 1960 LOC: ER ROOM / BED: / AGE / SEX: 64 / F ADM STATUS: REG ER SERVICE [id number] ORDERING PHYSICIAN: KIM ACEVEDO DO PROCEDURE(s): CXRP - CHEST PORTABLE REASON: Vague Complaints, homeless ORDER NUMBER(s): [id number], ACCESSION NUMBER(s): [id number] CHEST RADIOGRAPH Indication: Vague Complaints, homeless Technique: Single frontal view of the chest was obtained COMPARISON: XY CHEST PORTABLE on DOS: 11/01/23, XY CHEST XRAY 1 VIEW on DOS: 04/05/23, XY CHEST XRAY 1 VIEW on DOS: 04/03/23, EKG on DOS: 03/23/22, EKG on DOS: 03/21/22 FINDINGS: Lines and Tubes: None Lungs: Clear Pleura: No effusion. No pneumothorax. Cardiomediastinal contours: Unremarkable Bones: Unremarkable IMPRESSION: No acute disease. ATED BY: KAILASH HULL MD DICTATED DATE/TIME: 12/05/241718 SIGNED BY: KAILASH HULL MD SIGNED DATE/TIME: 12/05/241718 CC: Time of 1ST Reevaluation: 00:00 Reevaluation 1ST: N/A Patient Education/Counseling: Other Family Education/Counseling: No Family Present Comments MDM: patient presented with the above HPI.--general evaluation----workup was initiated. patient was found with the above mentioned diagnosis. the following medications were ordered: please refer to order lists of meds and tests obtained by myself Dr. Acevedo. Patient ED course and VS have been stabilized. Patient has been reassessed in the ED and remained in a stable condition. Patient eloped All the reports of any imaging studies that were ordered by myself were reviewed by myself. SEPSIS Sepsis Screen Physician Orders Apprentice Cook (12/05/24 ) Urinalysis (12/05/24 16:39) Drug Screen (12/05/24 16:39) Chest Portable (12/05/24 16:39) Electrocardigram (12/05/24 16:39) Vital Signs Date Time Temp Pulse Resp B/P (MAP) Pulse Ox O2 Delivery O2 Flow Rate FiO2 12/05/24 16:35 97.6 72 16 112/80 (91) 100 97.6 Laboratory Tests Test 12/05/24 16:57 White Blood Count 6.7 10^3/uL (4.4-10.8) Departure 1 Departure Time of Disposition: 18:22 Impression: Primary Impression: Alcohol abuse Additional Impressions: Homelessness Eloped from emergency department Disposition: LEFT AWOL/ELOPED Condition: Other Additional Instructions: Additional instructions: You MUST follow-up with your primary care/family doctor in 1 to 2 days. If you are unable to see your primary care/family doctor, please return to our emergency room for re-assessment and re-evaluation in 1 to 2 days. Return to the emergency room here in our facility or to the nearest ER [facility] if your symptoms change or worsen. CONSULTATIONS: you MUST Follow-up for consultation as soon as possible with: -cardiology in 1-2 days. Please call for appointment You MUST call the consultants office yourself to make an appointment. You may need to arrange that through your insurance and/or your primary/family doctor. If you are unable to see the technical assistance consultant in 1 to 2 days, you must return to our emergency room (or any other ER of your choice) for re-assessment and re- evaluation. Adequate fluid hydration. Discharged With: Self Critical Care Note Critical Care Time?: No I personally scribed for KIM ACEVEDO DO ([email or web address]) on 12/05/24 at 16:40. Electronically submitted by Chelita Cates ([facility] I personally scribed for KIM ACEVEDO DO ([email or web address]) on 12/05/24 at 16:52. Electronically submitted by Chelita Cates ([facility] I personally scribed for KIM ACEVEDO DO ([email or web address]) on 7/26/25 at 17:28. Electronically submitted by Chelita Cates ([facility]). KIM ACEVEDO DO Dec 05, 2024 16:40
[2024-12-05] MEDS ORDERED: SODIUM CHLORIDE 0.9% 1,000 ML IV ONE ×2 (16:45→18:30)
[2024-12-05 17:07] LABS: Hematocrit 42.6 % (36.0-46.0); Hemoglobin 14.7 g/dL (12.2-16.2); Mean Corpuscular Hemoglobin 34.2 pg (28.0-32.0); Mean Corpuscular Volume 98.8 fL (80.0-100.0); Nucleated Red Blood Cells % 0.0 %
--- NOTE | 2024-12-05 17:21 | DVH ---
CHEST RADIOGRAPH Indication: Vague Complaints, homeless Technique: Single frontal view of the chest was obtained COMPARISON: XY CHEST PORTABLE on DOS: 11/01/23, XY CHEST XRAY 1 VIEW on DOS: 04/05/23, XY CHEST XRAY 1 VIEW on DOS: 04/03/23, EKG on DOS: 03/23/22, EKG on DOS: 03/21/22 FINDINGS: Lines and Tubes: None Lungs: Clear Pleura: No effusion. No pneumothorax. Cardiomediastinal contours: Unremarkable Bones: Unremarkable IMPRESSION: No acute disease.
[2024-12-05 17:25] LABS: Alanine Aminotransferase 10 U/L (7-40); Albumin 4.6 g/dL (3.2-4.8); Anion Gap 11 (5-15); BUN/Creatinine Ratio 15.2 (10.0-20.0); Blood Urea Nitrogen 14 mg/dL (9-23); Calcium 10.1 mg/dL (8.7-10.4); Carbon Dioxide 26 mmol/L (20-31); Glucose 91 mg/dL (74-106); Sodium 144 mmol/L (136-145); Total Protein 6.9 g/dL (5.7-8.2)
[2024-12-05 17:26] LABS: Bilirubin, Total 0.4 mg/dL (0.2-1.0)
[2024-12-05 17:39] LABS: Alkaline Phosphatase 135 U/L (46-116); Chloride 107 mmol/L (98-107); Magnesium 1.6 mg/dL (1.6-2.6); Potassium 3.1 mmol/L (3.5-5.1)
[2024-12-05] MEDS ORDERED: THIAMINE HCL 100 MG TAB PO ONE (18:30)
== END 2024-12-05 20:59 | disposition left against medical advice (07) ==
LOC: ER 16:34 → EDBD 16:34 → EDUNIT# 16:34 → ER 20:59
DX: F10.10 Alcohol abuse, uncomplicated (principal); R11.0 Nausea; I10 Essential (primary) hypertension; J44.9 Chronic obstructive pulmonary disease, unspecified; F17.210 Nicotine dependence, cigarettes, uncomplicated; F20.9 Schizophrenia, unspecified; F41.9 Anxiety disorder, unspecified; R06.02 Shortness of breath; Z79.899 Other long term (current) drug therapy; Z88.5 Allergy status to narcotic agent
CPT/HCPCS: 36415; 71045; 80053; 80320; 83735; 83880; 84484; 85025

== ENCOUNTER 2025-01-01 19:57 | Emergency (ER) | payer MEDICAID ==
[~2025-01-01] VITALS: Ht 170.2 cm; Wt 80.3 kg
[2025-01-01 20:01] VITALS: BP 174/108; PULSE 75; RESP 16; TEMP 97.8; O2SAT 98
--- NOTE | 2025-01-01 21:38 | DVH ---
XY CHEST TWO VIEWS ROUTINE CLINICAL HISTORY: cough and fever COMPARISON: XY CHEST PORTABLE on DOS: 12/05/24, CT CT ANGIO CHEST CONTRAST on DOS: 11/03/23, XY CHEST P ORTABLE on DOS: 11/01/23 TECHNIQUE: Frontal and lateral view of the chest was obtained FINDINGS: Lines and Tubes: None Lungs: No focal consolidation. Pleura: No effusion. No pneumothorax. Cardiomediastinal contours: Unremarkable Bones: Patient is status post open reduction internal fixation of a proximal right humeral fracture IMPRESSION: 1. No acute cardiopulmonary disease.
[2025-01-01 23:05] LABS: COVID19 ANTIGEN SOFIA FIA NEGATIVE (NEGATIVE)
--- NOTE | 2025-01-01 23:33 | ED.PDOC ---
GI ASSESSMENT HPI Comments pot states has cough, diarrhea, and rash x1 month. pt denies cp, sob, n/v/d. respirations even unlabored, no distress noted. pt speaking full sentences. Chief Complaint: Flu like Time Seen by MD: 19:59 Primary Care Provider: ? Reviewed Notes: Nurses Notes, Medications, Allergies Allergies: Coded Allergies: Codeine (Verified Allergy, Unknown, 03/23/22) vomiting Home Meds Active Scripts Acetaminophen (Tylenol Extra Strength Fo) 500 Mg Tab, 1000 MG PO BID, #30 TAB Prov:TEDDY MARTE 07/02/24 Sulfamethoxazole W/Trimethopri (Bactrim Ds Tablet) 1 Tab Tb, 1 TAB PO BID for 7 Days, #14 TAB 0 Refills Prov:KATHRINE MEADE 03/26/24 Cyanocobalamin (B12) 1,000 Mcg Cap, 1000 MCG PO DAILY for 7 Days, #1 CAP 0 Refills Prov:VASILIY [facility] 11/05/23 Sucralfate (CARAFATE) 1 Gm Tab, 1 GM OR QID for 30 Days, #120 TAB 0 Refills Prov:VASILIY [facility] 11/05/23 Pantoprazole Sodium Sesquihydr (Pantoprazole Sodium) 40 Mg Tab, 40 MG PO BID for 30 Days, #60 TAB 2 Refills Prov:VASILIY [facility] 11/05/23 Ibuprofen (Ibuprofen) 800 Mg Tab, 1 TAB PO TID, #30 TAB Prov:TEDDY MARTE 10/11/23 Ibuprofen (Ibuprofen) 800 Mg Tab, 1 TAB PO TID, #30 TAB Prov:TEDDY MARTE 09/12/23 Baclofen (Baclofen) 5 Mg Tab, 5 MG PO BID, #10 TAB As needed for muscle spasm Prov:EDGARD MARS Q ELECTRICAL TECH/PROJECT MANAGER 08/26/23 Naproxen (NAPROSYN TABLET) 500 Mg Tb, 1 TAB PO BID, #10 TAB as needed for pain Prov:REJI MARSALDA Q ELECTRICAL TECH/PROJECT MANAGER 08/26/23 Albuterol Sulfate (Albuterol Sulfate Hfa) 108 Mcg/Act Aer, 108 MCG IN TID, #90 AER Prov:TEDDY MARTE 04/06/23 Prednisone (Prednisone) 20 Mg Tab, 60 MG PO DAILY, #15 MG Prov:TEDDY MARTE 04/06/23 Promethazine-Dm (Promethazine Dm 6.25-15 mg/5Ml) 1 Diana Diana, 5 ML PO TID, #150 ML Prov:TEDDY MARTE 04/06/23 Ibuprofen Micronized (Ibuprofen) 800 Mg Tab, 800 MG PO Q8HP PRN, #20 TAB Prov:MARVIN GARCIA PAC 11/09/22 Hydrocodone-Acetaminophen (Hydrocodone Bitartrate/AC 10-325 mg) 1 Tab Tab, 1 TAB PO Q4HPRN PRN, #15 TAB 0 Refills Prov:HARPREET MADDOX 11/09/22 Multiple Vitamin (Mvi Tab) 1 Tab Tb, 1 TAB PO DAILY for 30 Days, #30 TAB Prov:JACY POST MD 03/26/22 Levofloxacin (Levaquin) 500 Mg Tab, 500 MG PO DAILY for 7 Days, #7 TAB Prov:JACY POST MD 03/26/22 Pantoprazole Sodium Sesquihydr (Pantoprazole Sodium) 40 Mg Tab, 40 MG PO DAILY for 30 Days, #30 TAB Prov:JACY POST MD 03/26/22 Ibuprofen Micronized (MOTRIN TABLET) 600 Mg Tb, 600 MG PO TID for 7 Days, #21 TAB Prov:JACY POST MD 03/26/22 Meloxicam (Mobic) 7.5 Mg Tab, 7.5 MG PO BID, #30 TAB Prov:TEDDY MARTE 07/19/21 Reported Medications Trazodone Hcl (Trazodone Hcl) 100 Mg Tab, 1 TAB PO QPM, #30 TAB 1 Refill 11/02/23 Quetiapine Fumerate (Seroquel) 50 Mg Tab, 1 TAB PO QPM, #30 TAB 2 Refills 11/02/23 Hydrocodone-Acetaminophen (Hydrocodone Bitartrate/AC 5-325 mg) 1 Tab Tab, 1 TAB PO Q6HR PRN for PAIN SCALE 7 THRU 10, TAB 03/22/22 Mode of Arrival: Ambulatory Past Medical History PAST MEDICAL HISTORY: Anxiety, COPD, HTN, Schizophrenia 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 INDUSTRIAL EDUCATION INSTRUCTOR History Family History Family History: Unknown Social History Smoker: Cigarettes, Less Than 1 Pack/Day Alcohol: Occasionally Drugs: Methamphetamine Lives In: Homeless All Other Systems: Reviewed and Negative (SEE HPI) Physical Exam General Appearance: No Apparent Distress, Normal HEENT: Normal ENT Inspection, Pharynx Normal, TMs Normal Neck: Full Range of Motion, Non-Tender, Normal, Normal Inspection Respiratory: Chest Non-Tender, Lungs Clear, No Accessory Muscle Use, No Respiratory Distress, Normal Breath Sounds Cardiovascular: No Edema, No JVD, No Murmur, No Gallop, Normal Peripheral Pulses, Regular Rate/Rhythm Breast Exam: Deferred Gastrointestinal: No Organomegaly, Non Tender, No Pulsatile Mass, Normal Bowel Sounds, Soft Genitalia: Deferred Pelvic: Deferred Rectal: Deferred Extremities: No calf tenderness, Normal capillary refill, Normal inspection, Normal range of motion, Non-tender, No pedal edema Musculoskeletal : Apperance: Normal Neurologic: Alert, project developer II-XII nml as Tested, No Motor Deficits, Normal Affect, Normal Mood, No Sensory Deficits Cerebellar Function: Normal Reflexes: Normal Skin: Dry, Normal Color, Warm Lymphatic: No Adenopathy Was a procedure done? Was a procedure done?: No GI differential Dx Differential Diagnosis: Food Poisoning, Bacterial, Parasitic, Viral X-Ray, Labs, Meds, VS Vital Signs Date Time Temp Pulse Resp B/P (MAP) Pulse Ox O2 Delivery O2 Flow Rate FiO2 01/01/25 20:01 97.8 75 16 174/108 98 97.8 Lab Test 01/01/25 21:07 Range/Units Influenza Type A Antigen Negative Negative Influenza Type B Antigen Negative Negative SARS-CoV-2 Antigen (Rapid) Negative NEGATIVE X-Ray, Labs, Meds, VS Comment XY CHEST TWO VIEWS ROUTINE CLINICAL HISTORY: cough and fever COMPARISON: XY CHEST PORTABLE on DOS: 12/05/24, CT CT ANGIO CHEST CONTRAST on DOS: 11/03/23, XY CHEST PORTABLE on DOS: 11/01/23 TECHNIQUE: Frontal and lateral view of the chest was obtained FINDINGS: Lines and Tubes: None Lungs: No focal consolidation. Pleura: No effusion. No pneumothorax. Cardiomediastinal contours: Unremarkable Bones: Patient is status post open reduction internal fixation of a proximal right humeral fracture IMPRESSION: 1. No acute cardiopulmonary disease Images Reviewed?: Images reviewed and evaluated by me Time of 1ST Reevaluation: 19:59 Reevaluation 1ST: Unchanged Time of 2ND Reevaluation: 23:33 Reevaluation 2ND: Improved Patient Education/Counseling: Diagnosis, Treatment, Prognosis, Need For Follow Up Family Education/Counseling: No Family Present SEPSIS Sepsis Screen Date sepsis recognized/suspect: Jan 01, 2025 Time Sepsis recognized/suspect: 2000 Recent Procedure: No On Antibiotic Therapy: No Respiratory Rate >20: No Heart Rate >90: No Temp<36 C (96.8 F) or >38.3 C: No SBP <90 or MAP <65 mmHG: No New Acute Mental Status Change: No Is the patient on CPAP, BIPAP,: No Physician Orders Chest Two Views Routine (01/01/25 20:44) Vital Signs Date Time Temp Pulse Resp B/P (MAP) Pulse Ox O2 Delivery O2 Flow Rate FiO2 01/01/25 20:01 97.8 75 16 174/108 98 97.8 Departure 1 Departure Time of Disposition: 23:33 Impression: Primary Impression: Viral syndrome Disposition: HOME / SELF CARE / HOMELESS Condition: Stable Discharged With: Self Critical Care Note Critical Care Time?: No Stability Stability form required: ROGER Tyler Jan 01, 2025 23:33
== END 2025-01-01 23:43 | disposition home or self-care (01) ==
LOC: ER 19:57
DX: B34.9 Viral infection, unspecified (principal); F17.210 Nicotine dependence, cigarettes, uncomplicated; F10.90 Alcohol use, unspecified, uncomplicated; F19.90 Other psychoactive substance use, unspecified, uncomplicated; F41.9 Anxiety disorder, unspecified; J44.9 Chronic obstructive pulmonary disease, unspecified; I10 Essential (primary) hypertension; F20.9 Schizophrenia, unspecified; Z79.899 Other long term (current) drug therapy; Z59.00 Homelessness unspecified; Z98.890 Other specified postprocedural states; Z88.5 Allergy status to narcotic agent; Z79.52 Long term (current) use of systemic steroids; Z79.1 Long term (current) use of non-steroidal anti-inflammatories (NSAID); Z20.822 Contact with and (suspected) exposure to COVID-19
CPT/HCPCS: 36415; 71046; 87426; 87804

== ENCOUNTER 2025-01-17 18:24 | Emergency (ER) | payer MEDICAID ==
[~2025-01-17] VITALS: Ht 170.2 cm; Wt 81.8 kg
[2025-01-17 18:41] VITALS: BP 111/78; PULSE 96; RESP 18; TEMP 98.6; O2SAT 97
[2025-01-17] MEDS ORDERED: HYDROcodone-ACET 5/325MG TAB PO ONE (19:00)
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
== END 2025-01-17 22:01 | disposition left against medical advice (07) ==
LOC: ER 18:24 → EDBD 18:24 → ER 22:01
DX: S60.512A Abrasion of left hand, initial encounter (principal); J44.9 Chronic obstructive pulmonary disease, unspecified; I10 Essential (primary) hypertension; F20.9 Schizophrenia, unspecified; Z88.5 Allergy status to narcotic agent; Z79.899 Other long term (current) drug therapy; W19.XXXA Unspecified fall, initial encounter; Y93.89 Activity, other specified; Y92.89 Other specified places as the place of occurrence of the external cause; Y99.8 Other external cause status

== ENCOUNTER 2025-02-02 12:30 | Emergency (ER) | payer MEDICAID ==
[~2025-02-02] VITALS: Ht 167.6 cm; Wt 75.0 kg
--- NOTE | 2025-02-02 12:43 | ECG ---
[facility] Test Date: 2025-02-02 Test Time: 12:39:18 Pat Name: LUIS CRANE Department: Room: Gender: F Imaging Technician: JAIME : 1960 Requested By: KIM ACEVEDO Order Number: [id number] Reading MD: Vasquez Lau Measurements Intervals [place] Rate: 66 P: 83 [place]: 187 QRS: 73 QRSD: 98 T: 54 QT: 444 QTc: 466 Interpretive Statements Sinus rhythm Electronically Signed On 02-02-2025 16:40:30 PDT by Vasquez Lau Please click the below link to view image of tracing.
[2025-02-02] MEDS: SODIUM CHLORIDE 0.9% 1,000 ML IV ONE (13:18)
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
[2025-02-02 13:39] LABS: Hematocrit 41.1 % (36.0-46.0); Hemoglobin 13.8 g/dL (12.2-16.2); Mean Corpuscular Hemoglobin 34.0 pg (28.0-32.0); Mean Corpuscular Volume 101.5 fL (80.0-100.0); Nucleated Red Blood Cells % 0.0 %
--- NOTE | 2025-02-02 14:20 | ED.PDOC ---
History of Present Illness HPI Comments HPI: 64 y/o F with PMHx of anxiety, schizophrenia, HTN, and COPD is BIBA, for CC of generalized weakness. Patient is a poor historian. EMS reports, patient is coming from a restaurant where she called EMS d/t sudden onset, weakness today (02/02/25). Upon arrival to the ED, patient appears to be diaphoretic. No other symptoms or modifying factors are present at this time. Initial Vitals BP: HR: RR: O2 Sat: Temp: Past Medical history: ANXIETY, COPD, HTN, SCHIZOPHRENIA, insomnia Past Surgical history: Medications: SEROQUEL Social History: METHAMPHETAMINE USAGE Allergies: NKDA HPI: Poor Historian. REVIEW OF SYSTEMS: CONSTITUTIONAL: Denies acute: fever, diaphoresis, chills, HEAD: Denies acute: headache, photophobia Eyes: Denies acute: Double vision, vision loss, eye pain, eye discharge. EARS: Denies acute: tinnitus, hearing loss, ear discharge, ear pain, THROAT: Denies acute: sore throat, swelling, difficulty swallowing , pain with swallowing, change in voice. NECK: Denies acute: neck pain, neck swelling, stiff neck. HEART: Denies acute : chest pain, palpitations, LUNGS: Denies acute: SOB, wheezing, cough, hemoptysis ABDOMEN: Denies acute: abdominal pain, Nausea, Vomiting, diarrhea, melena , hematemesis, hematochezia SKIN: Denies acute: rash, redness, lesions, itchiness. EXTREMITIES: Denies acute: calf pain, numbness, tingling, weakness, denies pain in extremity. Denies acute: Low back pain. Neuro: Denies acute: focal neurological deficit, motor or sensory focal neurological deficit, tremors, seizure like activity, confusion, change in mental status, loss of bowel or bladder function, cauda equina like symptoms. : Denies acute: dysuria, hematuria, flank pain, increase in urinary frequency. PSYCH: Denies acute: hallucination, homicidal ideation. FEMALE: Denies acute: abnormal vaginal bleeding, foul odor, unusual discharge. PHYSICAL EXAM: General: -----no---acute distress, awake and alert. Head: normocephalic, atraumatic. Neck: supple, trachea is midline, no swelling. Throat: Normal phonation. Eyes:, no erythema, no purulent discharge, no proptosis, no icterus. Heart: regular rate, regular rhythm, no significant murmur appreciated. Lungs: no apparent respiratory distress, Able to speak in full sentences. No wheezing, no rhonchi, no crackles. No stridors Clear to auscultation bilaterally. Abdomen: non tender to palpation, non distended, soft, no guarding, no rebound, + bowel sounds. Neuro: Awake, Alert, oriented to name, self, situation, follows commands GCS=15. Speech is normal. Skin: no petechia, no purpura, no cyanosis, non-pale, not jaundice. Lower extremities: --no - Pitting edema no deformity, no focal swelling, no calf TTP. Makes eye contact. moves all four extremities. Face: no apparent facial droop. Ambulating in the ED independently. ED COURSE: DISCLAIMER: This medical document was created using an electronic medical record system with voice recognition software and computerized dictation system. Although this document has been carefully reviewed, there might still be some phonetic and typographical errors. Occasional wrong-word or "sound-alike" substitutions may have occurred due to the inherent limitations of voice recognition software. These areas are purely typographical due to imperfections of the software programs and do not reflect any compromise in the patient's medical care. Please read the chart carefully and recognize, using context, where these substitutions have occurred. Chief Complaint: Abdominal Pain Time Seen by MD: 13:00 Primary Care Provider: ? Reviewed Notes: Nurses Notes, Fur Mixer Operator Notes, Medications, Allergies Allergies: Coded Allergies: Codeine (Verified Allergy, Unknown, 03/23/22) vomiting Home Meds Active Scripts Acetaminophen (Tylenol Extra Strength Fo) 500 Mg Tab, 1000 MG PO BID, #30 TAB Prov:TEDDY MARTE 07/02/24 Sulfamethoxazole W/Trimethopri (Bactrim Ds Tablet) 1 Tab Tb, 1 TAB PO BID for 7 Days, #14 TAB 0 Refills Prov:KATHRINE MEADE 03/26/24 Cyanocobalamin (B12) 1,000 Mcg Cap, 1000 MCG PO DAILY for 7 Days, #1 CAP 0 Refills Prov:[facility]B [facility] 11/05/23 Sucralfate (CARAFATE) 1 Gm Tab, 1 GM OR QID for 30 Days, #120 TAB 0 Refills Prov:HASEEB [facility] 11/05/23 Pantoprazole Sodium Sesquihydr (Pantoprazole Sodium) 40 Mg Tab, 40 MG PO BID for 30 Days, #60 TAB 2 Refills Prov:HASEEB [facility] 11/05/23 Ibuprofen (Ibuprofen) 800 Mg Tab, 1 TAB PO TID, #30 TAB Prov:TEDDY MARTE 10/11/23 Ibuprofen (Ibuprofen) 800 Mg Tab, 1 TAB PO TID, #30 TAB Prov:TEDDY MARTE 09/12/23 Baclofen (Baclofen) 5 Mg Tab, 5 MG PO BID, #10 TAB As needed for muscle spasm Prov:EDGARD MARS Q MANAGER CAREER 08/26/23 Naproxen (NAPROSYN TABLET) 500 Mg Tb, 1 TAB PO BID, #10 TAB as needed for pain Prov:REJI MARSALDA Q MANAGER CAREER 08/26/23 Albuterol Sulfate (Albuterol Sulfate Hfa) 108 Mcg/Act Aer, 108 MCG IN TID, #90 AER Prov:TEDDY MARTE 04/06/23 Prednisone (Prednisone) 20 Mg Tab, 60 MG PO DAILY, #15 MG Prov:TEDDY MARTE 04/06/23 Promethazine-Dm (Promethazine Dm 6.25-15 mg/5Ml) 1 Diana Diana, 5 ML PO TID, #150 ML Prov:TEDDY MARTE 04/06/23 Ibuprofen Micronized (Ibuprofen) 800 Mg Tab, 800 MG PO Q8HP PRN, #20 TAB Prov:MARVIN GARCIA PAC 11/09/22 Hydrocodone-Acetaminophen (Hydrocodone Bitartrate/AC 10-325 mg) 1 Tab Tab, 1 TAB PO Q4HPRN PRN, #15 TAB 0 Refills Prov:HARPREET MADDOX 11/09/22 Multiple Vitamin (Mvi Tab) 1 Tab Tb, 1 TAB PO DAILY for 30 Days, #30 TAB Prov:JACY POST MD 03/26/22 Levofloxacin (Levaquin) 500 Mg Tab, 500 MG PO DAILY for 7 Days, #7 TAB Prov:JACY POST MD 03/26/22 Pantoprazole Sodium Sesquihydr (Pantoprazole Sodium) 40 Mg Tab, 40 MG PO DAILY for 30 Days, #30 TAB Prov:JACY POST MD 03/26/22 Ibuprofen Micronized (MOTRIN TABLET) 600 Mg Tb, 600 MG PO TID for 7 Days, #21 TAB Prov:JACY POST MD 03/26/22 Meloxicam (Mobic) 7.5 Mg Tab, 7.5 MG PO BID, #30 TAB Prov:TEDDY MARTE 07/19/21 Reported Medications Trazodone Hcl (Trazodone Hcl) 100 Mg Tab, 1 TAB PO QPM, #30 TAB 1 Refill 11/02/23 Quetiapine Fumerate (Seroquel) 50 Mg Tab, 1 TAB PO QPM, #30 TAB 2 Refills 11/02/23 Hydrocodone-Acetaminophen (Hydrocodone Bitartrate/AC 5-325 mg) 1 Tab Tab, 1 TAB PO Q6HR PRN for PAIN SCALE 7 THRU 10, TAB 03/22/22 Information Source: Patient, Emergency Med Personnel Mode of Arrival: EMS Severity: Moderate Timing: Minutes Duration: Since onset Prehospital treatment: None Was a procedure done? Was a procedure done?: No Differential Dx Considerations may include: DEHYDRATION, ELECTROLYTE IMBALANCE, DRUG TOXICITY As far as generalized weakness: Includes but not limited to thyroid disease, encephalopathy, electrolyte abnormality, sepsis, infection, intracranial pathology, drug adverse effects, arrhythmia, kidney insufficiency, ACS, CVA, malignancy, anemia X-Ray, Labs, Meds, VS Vital Signs Date Time Temp Pulse Resp B/P (MAP) Pulse Ox O2 Delivery O2 Flow Rate FiO2 02/02/25 20:18 79 14 95 Room Air* 0 21 02/02/25 20:16 98.7 79 14 149/85 (106) 95 98.7 02/02/25 15:55 97.4 76 16 134/95 (108) 94 97.4 02/02/25 12:39 66 02/02/25 12:36 98.4 84 17 122/81 96 98.4 Lab Test 02/02/25 13:08 Range/Units White Blood Count 6.7 4.4-10.8 10^3/uL Red Blood Count 4.05 4.0-5.20 10^6/uL Hemoglobin 13.8 12.2-16.2 g/dL Hematocrit 41.1 36.0-46.0 % Mean Corpuscular Volume 101.5 H 80.0-100.0 fL Mean Corpuscular Hemoglobin 34.0 H 28.0-32.0 pg Mean Corpuscular Hemoglobin Concent 33.5 32.0-36.0 g/dL Red Cell Distribution Width 14.9 H 11.8-14.3 % Platelet Count 307 140-450 10^3/uL Mean Platelet Volume 7.7 6.9-10.8 fL Neutrophils (%) (Auto) 40.0 37.0-80.0 % Lymphocytes (%) (Auto) 50.6 H 10.0-50.0 % Monocytes (%) (Auto) 7.1 0.0-12.0 % Eosinophils (%) (Auto) 1.6 0.0-7.0 % Basophils (%) (Auto) 0.7 0.0-2.0 % Neutrophils # (Auto) 2.7 1.6-8.6 10 ^3/uL Lymphocytes # (Auto) 3.4 0.4-5.4 10 ^3/uL Monocytes # (Auto) 0.5 0-1.3 10 ^3/uL Eosinophils # (Auto) 0.1 0-0.8 10 ^3/uL Basophils # (Auto) 0 0-0.2 10 ^3/uL Nucleated Red Blood Cells 0.0 % Sodium Level 143 136-145 mmol/L Potassium Level 3.5 3.5-5.1 mmol/L Chloride Level 106 98-107 mmol/L Carbon Dioxide Level 26 20-31 mmol/L Anion Gap 11 5-15 Blood Urea Nitrogen 11 9-23 mg/dL Creatinine 0.66 0.550-1.02 mg/dL Glomerular Filtration Rate Calc 99 >90 mL/min BUN/Creatinine Ratio 16.7 10.0-20.0 Serum Glucose 87 74-106 mg/dL Lactic Acid Level 1.8 0.4-2.0 mmol/L Calcium Level 8.6 L 8.7-10.4 mg/dL Total Bilirubin 0.4 0.2-1.0 mg/dL Aspartate Amino Transferase (AST) 24 13-40 U/L Alanine Aminotransferase (ALT) 10 7-40 U/L Alkaline Phosphatase 121 H 46-116 U/L Troponin I High Sensitivity < 3 L </=34 ng/L Total Protein 6.5 5.7-8.2 g/dL Albumin 3.8 3.2-4.8 g/dL Lipase 24 12-53 U/L Current Medications Medications (Trade) Dose Ordered Sig/Alana Route Start Time Stop Time Status Last Admin Sodium Chloride 1,000 ml @ 1,000 mls/hr Q1H ONCE IV 02/02/25 12:45 02/02/25 13:44 DC 02/02/25 13:18 [place] [address] Ph: [phone] DIAGNOSTIC IMAGING Diagnostic Imaging Report : [id number] Signed PATIENT: LUIS CRANE ACCT: [id number] UNIT: [id number] : 1960 LOC: ER ROOM / BED: / AGE / SEX: 64 / F ADM STATUS: REG ER SERVICE 1235 ORDERING PHYSICIAN: KIM ACEVEDO DO PROCEDURE(s): ABPL - CT AB PEL WO CON-NO ORAL OR IV REASON: abd pain, dizzy ORDER NUMBER(s): [id number], ACCESSION NUMBER(s): [id number] EXAM: CT CT AB PEL WO CON-NO ORAL OR IV INDICATION: abd pain, dizzy TECHNIQUE: Volumetric multidetector CT images of the abdomen and pelvis were obtained without contrast. All CT scans at this facility use dose modulation, iterative reconstruction, and/or weight based dosing when appropriate to reduce radiation dose to as low as reasonably achievable. COMPARISON: CT CT AB PEL WO CON-NO ORAL OR IV on DOS: 09/26/22 FINDINGS: [LOWER CHEST]: The partially visualized lung bases are clear without a pleural effusion. The cardiac size is normal without pericardial effusion. [LIVER]: Normal hepatic size without suspicious focal lesion. [GALLBLADDER AND BILIARY TREE]: No cholelithiasis. [SPLEEN]: Unremarkable. [PANCREAS]: Unremarkable. [ADRENAL GLANDS]: Slight right adrenal gland thickening measuring 1 cm. Imaging finding is nonspecific and consider nonemergent CT adrenal protocol [KIDNEYS]: No hydronephrosis. No nephroureterolithiasis. No suspicious focal lesion. [BLADDER]: Unremarkable for the degree distention. [REPRODUCTIVE ORGANS]: Unremarkable. [BOWEL/MESENTERY]: Stomach is normal. No CT evidence of bowel obstruction. normal appendix. Question slight circumferential distal esophageal wall thickening. Correlate with clinical exam for esophagitis [ASCITES]: Absent [LYMPHADENOPATHY]: No pathologically enlarged lymph nodes by CT size criteria [VASCULATURE]: No aneurysmal dilatation. [ABDOMINAL WALL]: Unremarkable. [MUSCULOSKELETAL]: No acute fracture or aggressive focal osseous lesion. Multifocal degenerative change of the visualized spine. right hip plate and screw construct related to prior injury. Hardware IMPRESSION: 1. No CT evidence of an acute abdominal/pelvic process. 2. Question slight circumferential distal esophageal wall thickening. 3. Correlate with clinical exam for esophagitis. ATED BY: KOFI GREEN MD DICTATED DATE/TIME: 02/02/251334 SIGNED BY: KOFI GREEN MD SIGNED DATE/TIME: 02/02/251334 CC: Time of 1ST Reevaluation: 13:30 Reevaluation 1ST: Unchanged Time of 2ND Reevaluation: 22:30 (Patient eating and drinking and tolerating p.o. intake fine. Patient was seen by Psychiatry already. Patient is awaiting social service evaluation in the morning. The care of this patient will be signed out to . ) Reevaluation 2ND: Improved Patient Education/Counseling: Diagnosis, Treatment Family Education/Counseling: No Family Present Assigned to Dr. Dr. Dumont Patient is awaiting social service evaluation in the morning. Comments MDM: patient presented with the above HPI.---generalized weakness/SI---workup was initiated. patient was found with the above mentioned diagnosis. the following medications were ordered: please refer to order lists of meds and tests obtained by myself Dr. Acevedo. Patient ED course and VS have been stabilized. Patient has been reassessed in the ED and remained in a stable condition. Pertinent incidental findings were discussed with the patient and/or family. Patient/family voices understanding and is agreeable with plan. Patient has been observed in the ED adequate length of time to insure improvement/stability. Escalation of care considered: Consideration of escalation to observation or admission Tele psych was consulted. Patient is still waiting for social service evaluation in the morning. Care of this patient was transitioned to night Dr. Dumont. All the reports of any imaging studies that were ordered by myself were reviewed by myself. SEPSIS Sepsis Screen Date sepsis recognized/suspect: Feb 02, 2025 Time Sepsis recognized/suspect: 1232 Recent Procedure: No On Antibiotic Therapy: No Respiratory Rate >20: No Heart Rate >90: No Temp<36 C (96.8 F) or >38.3 C: No SBP <90 or MAP <65 mmHG: No New Acute Mental Status Change: No Is the patient on CPAP, BIPAP,: No Physician Orders Manager Filter (02/02/25 ) Electrocardigram (02/02/25 12:35) Urinalysis (02/02/25 12:35) Ct Ab Pel Wo Con-No Oral Or Iv (02/02/25 12:35) Drug Screen (02/02/25 12:35) * Drainage Design Coordinator Consult (02/02/25 ) *Tele Psych Consult (02/02/25 17:18) Vital Signs Date Time Temp Pulse Resp B/P (MAP) Pulse Ox O2 Delivery O2 Flow Rate FiO2 02/02/25 20:18 79 14 95 Room Air* 0 21 02/02/25 20:16 98.7 79 14 149/85 (106) 95 98.7 02/02/25 15:55 97.4 76 16 134/95 (108) 94 97.4 02/02/25 12:39 66 02/02/25 12:36 98.4 84 17 122/81 96 98.4 Laboratory Tests Test 02/02/25 13:08 Lactic Acid Level 1.8 mmol/L (0.4-2.0) White Blood Count 6.7 10^3/uL (4.4-10.8) Medications Medications Dose Ordered Sig/Alana Route Start Time Stop Time Status Last Admin Dose Admin Sodium Chloride 1,000 ml @ 1,000 mls/hr Q1H ONCE IV 02/02/25 12:45 02/02/25 13:44 DC 02/02/25 13:18 Departure 1 Departure Time of Disposition: 17:13 Impression: Primary Impression: Generalized weakness Additional Impressions: Homelessness Suicidal ideation Disposition: 30 STILL A PATIENT Condition: Stable Additional Instructions: Psychiatry discharge recommendations: RECOMMENDATIONS: 1. Legal: Patient does not meet 5150 criteria. No involuntary psychiatric hold indicated. 2. Disposition: Safe for discharge from ED with comprehensive outpatient referrals and crisis resources. 3. Medications: Continue current regimen of Celexa 20 mg daily and Seroquel 50 mg nightly, as tolerated. Defer further medication adjustments to her outpatient provider. 4. Other / Resources: - Provide mental health and crisis resources, including the Suicide & Crisis Lifeline (call or text 973) for 03/12 support. - Provide information for local critical access hospital mental health urgent care centers or walk-in psychiatric clinics. - Connect with homeless outreach resources, including local shelters, transitional housing programs, and case management services. If available, refer to social work for assistance with housing navigation and benefits. - Encourage follow-up with her outpatient mental health provider for ongoing medication management and psychotherapy. - Reinforce safety plan and provide written discharge instructions with resource numbers. Additional instructions: Please read all instructions provided in this packet carefully. You MUST follow-up with your primary care/family doctor in 1 to 2 days. If you are unable to see your primary care/family doctor, please return to our emergency room for re-assessment and re-evaluation in 1 to 2 days. Return to the emergency room here in our facility or to the nearest ER [facility] if your symptoms change or worsen. CONSULTATIONS: you MUST Follow-up for consultation as soon as possible with: Dr. Moreno in 1-2 days. Please call for appointment You MUST call the consultants office yourself to make an appointment. You may need to arrange that through your insurance and/or your primary/family doctor. If you are unable to see the hadoop consultant in 1 to 2 days, you must return to our emergency room (or any other ER of your choice) for re-assessment and re- evaluation. Adequate fluid hydration. Although you have been discharged from the Emergency Department, this does not mean that you have a "clean bill of health". No definitive diagnosis for your symptoms has been made today. It is possible that you are in the process of developing a serious illness. This is why you must return to the ED without fail if any new or worsening symptoms develop. Below is a copy of your radiological report for follow up: [address] [address] Ph: [phone] DIAGNOSTIC IMAGING Diagnostic Imaging Report : [id number] Signed PATIENT: LUIS CRANE ACCT: [id number] UNIT: [id number] : 1960 LOC: ER ROOM / BED: / AGE / SEX: 64 / F ADM STATUS: REG ER SERVICE 1235 ORDERING PHYSICIAN: KIM ACEVEDO DO PROCEDURE(s): ABPL - CT AB PEL WO CON-NO ORAL OR IV REASON: abd pain, dizzy ORDER NUMBER(s): [id number], ACCESSION NUMBER(s): [id number] EXAM: CT CT AB PEL WO CON-NO ORAL OR IV INDICATION: abd pain, dizzy TECHNIQUE: Volumetric multidetector CT images of the abdomen and pelvis were obtained without contrast. All CT scans at this facility use dose modulation, iterative reconstruction, and/or weight based dosing when appropriate to reduce radiation dose to as low as reasonably achievable. COMPARISON: CT CT AB PEL WO CON-NO ORAL OR IV on DOS: 09/26/22 FINDINGS: [LOWER CHEST]: The partially visualized lung bases are clear without a pleural effusion. The cardiac size is normal without pericardial effusion. [LIVER]: Normal hepatic size without suspicious focal lesion. [GALLBLADDER AND BILIARY TREE]: No cholelithiasis. [SPLEEN]: Unremarkable. [PANCREAS]: Unremarkable. [ADRENAL GLANDS]: Slight right adrenal gland thickening measuring 1 cm. Imaging finding is nonspecific and consider nonemergent CT adrenal protocol [KIDNEYS]: No hydronephrosis. No nephroureterolithiasis. No suspicious focal lesion. [BLADDER]: Unremarkable for the degree distention. [REPRODUCTIVE ORGANS]: Unremarkable. [BOWEL/MESENTERY]: Stomach is normal. No CT evidence of bowel obstruction. normal appendix. Question slight circumferential distal esophageal wall thickening. Correlate with clinical exam for esophagitis [ASCITES]: Absent [LYMPHADENOPATHY]: No pathologically enlarged lymph nodes by CT size criteria [VASCULATURE]: No aneurysmal dilatation. [ABDOMINAL WALL]: Unremarkable. [MUSCULOSKELETAL]: No acute fracture or aggressive focal osseous lesion. Multifocal degenerative change of the visualized spine. right hip plate and screw construct related to prior injury. Hardware IMPRESSION: 1. No CT evidence of an acute abdominal/pelvic process. 2. Question slight circumferential distal esophageal wall thickening. 3. Correlate with clinical exam for esophagitis. ATED BY: KOFI GREEN MD DICTATED DATE/TIME: 02/02/251334 SIGNED BY: KOFI GREEN MD SIGNED DATE/TIME: 02/02/25 133 CC: Discharged With: Self Critical Care Note Critical Care Time?: No I personally scribed for KIM ACEVEDO DO ([email or web address]) on 02/02/25 at 14:20. Electronically submitted by Dawn Villalta ([email or web address]). I personally scribed for KIM ACEVEDO DO ([email or web address]) on 02/02/25 at 14:53. Electronically submitted by Dawn Villalta ([email or web address]). KIM ACEVEDO DO Feb 02, 2025 14:20
[2025-02-02 14:25] LABS: Alanine Aminotransferase 10 U/L (7-40); Albumin 3.8 g/dL (3.2-4.8); Anion Gap 11 (5-15); BUN/Creatinine Ratio 16.7 (10.0-20.0); Bilirubin, Total 0.4 mg/dL (0.2-1.0); Blood Urea Nitrogen 11 mg/dL (9-23); Carbon Dioxide 26 mmol/L (20-31); Chloride 106 mmol/L (98-107); Glucose 87 mg/dL (74-106); Lipase 24 U/L (12-53); Potassium 3.5 mmol/L (3.5-5.1); Sodium 143 mmol/L (136-145); Total Protein 6.5 g/dL (5.7-8.2)
[2025-02-02 14:30] LABS: Alkaline Phosphatase 121 U/L (46-116); Calcium 8.6 mg/dL (8.7-10.4)
--- NOTE | 2025-02-02 19:59 | DVHINCON2 ---
Date of Service if different f: Feb 02, 2025 Time of Service: 19:00 Consultation ([facility]) Labs Laboratory Tests Test 02/02/25 13:08 White Blood Count 6.7 10^3/uL (4.4-10.8) Red Blood Count 4.05 10^6/uL (4.0-5.20) Hemoglobin 13.8 g/dL (12.2-16.2) Hematocrit 41.1 % (36.0-46.0) Mean Corpuscular Volume 101.5 fL (80.0-100.0) Mean Corpuscular Hemoglobin 34.0 pg (28.0-32.0) Mean Corpuscular Hemoglobin Concent 33.5 g/dL (32.0-36.0) Red Cell Distribution Width 14.9 % (11.8-14.3) Platelet Count 307 10^3/uL (140-450) Mean Platelet Volume 7.7 fL (6.9-10.8) Neutrophils (%) (Auto) 40.0 % (37.0-80.0) Lymphocytes (%) (Auto) 50.6 % (10.0-50.0) Monocytes (%) (Auto) 7.1 % (0.0-12.0) Eosinophils (%) (Auto) 1.6 % (0.0-7.0) Basophils (%) (Auto) 0.7 % (0.0-2.0) Neutrophils # (Auto) 2.7 10 ^3/uL (1.6-8.6) Lymphocytes # (Auto) 3.4 10 ^3/uL (0.4-5.4) Monocytes # (Auto) 0.5 10 ^3/uL (0-1.3) Eosinophils # (Auto) 0.1 10 ^3/uL (0-0.8) Basophils # (Auto) 0 10 ^3/uL (0-0.2) Nucleated Red Blood Cells 0.0 % Sodium Level 143 mmol/L (136-145) Potassium Level 3.5 mmol/L (3.5-5.1) Chloride Level 106 mmol/L (98-107) Carbon Dioxide Level 26 mmol/L (20-31) Anion Gap 11 (5-15) Blood Urea Nitrogen 11 mg/dL (9-23) Creatinine 0.66 mg/dL (0.550-1.02) Glomerular Filtration Rate Calc 99 mL/min (>90) BUN/Creatinine Ratio 16.7 (10.0-20.0) Serum Glucose 87 mg/dL (74-106) Lactic Acid Level 1.8 mmol/L (0.4-2.0) Calcium Level 8.6 mg/dL (8.7-10.4) Total Bilirubin 0.4 mg/dL (0.2-1.0) Aspartate Amino Transf (AST/SGOT) 24 U/L (13-40) Alanine Aminotransferase (ALT/SGPT) 10 U/L (7-40) Alkaline Phosphatase 121 U/L (46-116) Troponin I High Sensitivity < 3 ng/L (</=34) Total Protein 6.5 g/dL (5.7-8.2) Albumin 3.8 g/dL (3.2-4.8) Lipase 24 U/L (12-53) Vitals Vital Signs Date Time Temp Pulse Resp B/P (MAP) Pulse Ox O2 Delivery O2 Flow Rate FiO2 02/02/25 15:55 97.4 76 16 134/95 (108) 94 97.4 PSYCHIATRY CONSULTATION INITIAL EVALUATION REASON FOR CONSULT: SI HPI: On evaluation, pt provides her name, location, but cannot give the date. She says until about an hour ago, she did not know where she was or why she presented. She was told she reported SI, but does not recall doing so. She currently denies SI, HI, AVH. She denies history of SIB or SA, says never! She denies access to firearms. She is homeless. Reports being in care and currently is on Seroquel 50 mg nightly, Celexa 20 mg daily. Pt contracts for safety if discharged. PSYCHIATRIC HISTORY: DIAGNOSIS: Reports h/o depression, insomnia. MEDICATION TRIALS: She was on Depakote in the past which caused wt gain, hair loss. SI/SELF-INJURY/SUICIDE ATTEMPT: Denies prior SUBSTANCE USE: Reports remote use cannabis. Denies current use of drugs or alcohol. RELEVANT MEDICAL HISTORY: Noncontributory SOCIAL HISTORY: Homeless ALLERGIES: Denies MENTAL STATUS EXAMINATION: The patient is an adult female, appearing her stated age, dressed in casual at tire and with fair grooming appropriate to circumstances. She is calm, cooperative, and engages with the interview. Speech is spontaneous, with normal rate, rhythm, and volume. Mood is described as okay and affect is congruent, stable, and within normal range. Thought process is linear, logical, and goal- directed. Thought content is notable for denial of current suicidal ideation, homicidal ideation, or psychotic symptoms; she denies hallucinations and delusions. No obsessions or ruminations are evident. Cognition is grossly intact, with orientation to person and place; she was not able to state the date earlier but demonstrates ability to attend and concentrate during interview. Insight is fair, as she recognizes her need for care and adherence to medicat ions. Judgment is fair to intact, as she is able to contract for safety, engage appropriately, and consider outpatient resources. Safety Assessment Current SI/HI: Denies both. Plan/Intent: None. Past SA/SIB: None reported. Access to means: Denies firearms or lethal means. Protective factors: Connected to outpatient care, medication adherence, contracts for safety, future-oriented, engages with interviewer. Risk formulation: Baseline risk is elevated due to homelessness and chronic psychiatric illness; acute risk is low. DIFFERENTIAL DIAGNOSIS: Altered Mental Status Adjustment Disorder, Unspecified ASSESSMENT: This is a homeless woman with a history of depression and insomnia, currently treated with Celexa and Seroquel, who presented to the ED after reportedly endorsing suicidal ideation, though she does not recall doing so and currently denies SI, HI, or AVH. She denies any past suicide attempts, denies self- injurious behavior, and denies firearm access. She is future-oriented, engaged, and willing to contract for safety. There is no evidence of deven, psychosis, or intoxication. While psychosocial stressors such as homelessness increase her chronic baseline risk, protective factors include medication adherence, outpatient engagement, denial of acute risk factors, and ability to participate in safety planning. Based on the current evaluation, the patient does not meet criteria for involuntary hold or psychiatric inpatient admission. RECOMMENDATIONS: 1. Legal: Patient does not meet 5150 criteria. No involuntary psychiatric hold indicated. 2. Disposition: Safe for discharge from ED with comprehensive outpatient referrals and crisis resources. 3. Medications: Continue current regimen of Celexa 20 mg daily and Seroquel 50 mg nightly, as tolerated. Defer further medication adjustments to her outpatient provider. 4. Other / Resources: - Provide mental health and crisis resources, including the Suicide & Crisis Lifeline (call or text 664) for 03/12 support. - Provide information for local [facility] mental health urgent care centers or walk-in psychiatric clinics. - Connect with homeless outreach resources, including local shelters, transitional housing programs, and case management services. If available, refer to social work for assistance with housing navigation and benefits. - Encourage follow-up with her outpatient mental health provider for ongoing medication management and psychotherapy. - Reinforce safety plan and provide written discharge instructions with resource numbers. MALORIE SWAIN MD Feb 02, 2025 19:59
[2025-02-02 20:18] VITALS: PULSE 79; RESP 14; O2SAT 95
--- NOTE | 2025-02-03 10:01 | ED.PDOC ---
Departure 1 Departure Time of Disposition: 10:00 (Patient resting comfortably and medically cleared. We will discharge patient home with outpatient follow up) Impression: Primary Impression: Generalized weakness Additional Impressions: Suicidal ideation Homelessness Disposition: HOME / SELF CARE / HOMELESS Condition: Stable Additional Instructions: Psychiatry discharge recommendations: RECOMMENDATIONS: 1. Legal: Patient does not meet 5150 criteria. No involuntary psychiatric hold indicated. 2. Disposition: Safe for discharge from ED with comprehensive outpatient referra ls and crisis resources. 3. Medications: Continue current regimen of Celexa 20 mg daily and Seroquel 50 mg nightly, as tolerated. Defer further medication adjustments to her outpatient provider. 4. Other / Resources: - Provide mental health and crisis resources, including the Suicide & Crisis Lifeline (call or text 418) for 03/12 support. - Provide information for local [facility] mental health urgent care centers or walk-in psychiatric clinics. - Connect with homeless outreach resources, including local shelters, transitional housing programs, and case management services. If available, refer to social work for assistance with housing navigation and benefits. - Encourage follow-up with her outpatient mental health provider for ongoing medication management and psychotherapy. - Reinforce safety plan and provide written discharge instructions with resource numbers. Additional instructions: Please read all instructions provided in this packet carefully. You MUST follow-up with your primary care/family doctor in 1 to 2 days. If you are unable to see your primary care/family doctor, please return to our emergency room for re-assessment and re-evaluation in 1 to 2 days. Return to the emergency room here in our facility or to the nearest ER [facility] if your symptoms change or worsen. CONSULTATIONS: you MUST Follow-up for consultation as soon as possible with: Dr. Moreno in 1-2 days. Please call for appointment You MUST call the consultants office yourself to make an appointment. You may need to arrange that through your insurance and/or your primary/family doctor. If you are unable to see the food consultant in 1 to 2 days, you must return to our emergency room (or any other ER of your choice) for re-assessment and re- evaluation. Adequate fluid hydration. Although you have been discharged from the Emergency Department, this does not mean that you have a "clean bill of health". No definitive diagnosis for your symptoms has been made today. It is possible that you are in the process of developing a serious illness. This is why you must return to the ED without fail if any new or worsening symptoms develop. Below is a copy of your radiological report for follow up: [address] [address] Ph: [phone] DIAGNOSTIC IMAGING Diagnostic Imaging Report : [id number] Signed PATIENT: LUIS CRANE ACCT: [id number] UNIT: [id number] : 1960 LOC: ER ROOM / BED: / AGE / SEX: 64 / F ADM STATUS: REG ER SERVICE 1235 ORDERING PHYSICIAN: KIM ACEVEDO DO PROCEDURE(s): ABPL - CT AB PEL WO CON-NO ORAL OR IV REASON: abd pain, dizzy ORDER NUMBER(s): [id number], ACCESSION NUMBER(s): [id number] EXAM: CT CT AB PEL WO CON-NO ORAL OR IV INDICATION: abd pain, dizzy TECHNIQUE: Volumetric multidetector CT images of the abdomen and pelvis were obtained without contrast. All CT scans at this facility use dose modulation, iterative reconstruction, and/or weight based dosing when appropriate to reduce radiation dose to as low as reasonably achievable. COMPARISON: CT CT AB PEL WO CON-NO ORAL OR IV on DOS: 09/26/22 FINDINGS: [LOWER CHEST]: The partially visualized lung bases are clear without a pleural effusion. The cardiac size is normal without pericardial effusion. [LIVER]: Normal hepatic size without suspicious focal lesion. [GALLBLADDER AND BILIARY TREE]: No cholelithiasis. [SPLEEN]: Unremarkable. [PANCREAS]: Unremarkable. [ADRENAL GLANDS]: Slight right adrenal gland thickening measuring 1 cm. Imaging finding is nonspecific and consider nonemergent CT adrenal protocol [KIDNEYS]: No hydronephrosis. No nephroureterolithiasis. No suspicious focal lesion. [BLADDER]: Unremarkable for the degree distention. [REPRODUCTIVE ORGANS]: Unremarkable. [BOWEL/MESENTERY]: Stomach is normal. No CT evidence of bowel obstruction. normal appendix. Question slight circumferential distal esophageal wall thickening. Correlate with clinical exam for esophagitis [ASCITES]: Absent [LYMPHADENOPATHY]: No pathologically enlarged lymph nodes by CT size criteria [VASCULATURE]: No aneurysmal dilatation. [ABDOMINAL WALL]: Unremarkable. [MUSCULOSKELETAL]: No acute fracture or aggressive focal osseous lesion. Multifocal degenerative change of the visualized spine. right hip plate and screw construct related to prior injury. Hardware IMPRESSION: 1. No CT evidence of an acute abdominal/pelvic process. 2. Question slight circumferential distal esophageal wall thickening. 3. Correlate with clinical exam for esophagitis. ATED BY: KOFI GREEN MD DICTATED DATE/TIME: 02/02/25 133 SIGNED BY: KOFI GREEN MD SIGNED DATE/TIME: 02/02/25 133 CC: Discharged With: RM Roth MD Feb 03, 2025 10:00
[2025-02-03 10:38] VITALS: BP 164/88; PULSE 74; RESP 20; TEMP 98; O2SAT 98
== END 2025-02-03 10:39 | disposition home or self-care (01) ==
LOC: EDBD 12:30 → ER 12:30
DX: R45.851 Suicidal ideations (principal); R53.1 Weakness; Z59.00 Homelessness unspecified; Z88.5 Allergy status to narcotic agent; Z79.899 Other long term (current) drug therapy
CPT/HCPCS: 36415; 74176; 80053; 83605; 83690; 84484; 85025; 93005; 96360; 96361; 99285; J7030

== ENCOUNTER 2025-02-05 08:46 | Emergency (ER) | payer MEDICAID ==
[~2025-02-05] VITALS: Ht 172.7 cm; Wt 61.5 kg
--- NOTE | 2025-02-05 08:58 | ED.PDOC ---
General HPI Comments 64 y.o female with PMHx of schizophrenia, HTN and anxiety, presents to the ED via EMS for a chief complaint of urinary incontinence. EMS reports patient was a walk in to their fire station this morning, stated multiple chronic complaints with new onset of urinary sx. Patient reports no previous urinary issues, denies dysuria, hematuria or fevers. Patient also complains of chronic right sided hip pain and elevated HBP in the 190's systolic with a repeat take by EMS on scene at 168/100. It is unsure if patient is compliant with medication. She has a hx of methamphetamine, tobacco and alcohol use but states she is no longer consuming. She denies any chest pain, dizziness, SOB. Time Seen by MD: 08:42 Primary Care Provider: ? Reviewed notes: Nurses Notes, Remodeler Notes, Medications, Allergies Allergies: Coded Allergies: Codeine (Verified Allergy, Unknown, 03/23/22) vomiting Home Meds Active Scripts Acetaminophen (Tylenol Extra Strength Fo) 500 Mg Tab, 1000 MG PO BID, #30 TAB Prov:TEDDY MARTE 07/02/24 Sulfamethoxazole W/Trimethopri (Bactrim Ds Tablet) 1 Tab Tb, 1 TAB PO BID for 7 Days, #14 TAB 0 Refills Prov:KATHRINE MEADE 03/26/24 Cyanocobalamin (B12) 1,000 Mcg Cap, 1000 MCG PO DAILY for 7 Days, #1 CAP 0 Refills Prov:ROJASHASEEB RESIDENT 11/05/23 Sucralfate (CARAFATE) 1 Gm Tab, 1 GM OR QID for 30 Days, #120 TAB 0 Refills Prov:HASEEB ROJAS RESIDENT 11/05/23 Pantoprazole Sodium Sesquihydr (Pantoprazole Sodium) 40 Mg Tab, 40 MG PO BID for 30 Days, #60 TAB 2 Refills Prov:HASEEB ROJAS RESIDENT 11/05/23 Ibuprofen (Ibuprofen) 800 Mg Tab, 1 TAB PO TID, #30 TAB Prov:TEDDY MARTE 10/11/23 Ibuprofen (Ibuprofen) 800 Mg Tab, 1 TAB PO TID, #30 TAB Prov:TEDDY MATRE 09/12/23 Baclofen (Baclofen) 5 Mg Tab, 5 MG PO BID, #10 TAB As needed for muscle spasm Prov:EDGARD MARS STATE TROOPER 08/26/23 Naproxen (NAPROSYN TABLET) 500 Mg Tb, 1 TAB PO BID, #10 TAB as needed for pain Prov:EDGARD MARS Q STATE TROOPER 08/26/23 Albuterol Sulfate (Albuterol Sulfate Hfa) 108 Mcg/Act Aer, 108 MCG IN TID, #90 AER Prov:TEDDY MARTE 04/06/23 Prednisone (Prednisone) 20 Mg Tab, 60 MG PO DAILY, #15 MG Prov:TEDDY MARTE 04/06/23 Promethazine-Dm (Promethazine Dm 6.25-15 mg/5Ml) 1 Diana Diana, 5 ML PO TID, #150 ML Prov:TEDDY MARTE 04/06/23 Ibuprofen Micronized (Ibuprofen) 800 Mg Tab, 800 MG PO Q8HP PRN, #20 TAB Prov:MARVIN GARCIA PAC 11/09/22 Hydrocodone-Acetaminophen (Hydrocodone Bitartrate/AC 10-325 mg) 1 Tab Tab, 1 TAB PO Q4HPRN PRN, #15 TAB 0 Refills Prov:HARPREET MADDOX 11/09/22 Multiple Vitamin (Mvi Tab) 1 Tab Tb, 1 TAB PO DAILY for 30 Days, #30 TAB Prov:JACY POST MD 03/26/22 Levofloxacin (Levaquin) 500 Mg Tab, 500 MG PO DAILY for 7 Days, #7 TAB Prov:JACY POST MD 03/26/22 Pantoprazole Sodium Sesquihydr (Pantoprazole Sodium) 40 Mg Tab, 40 MG PO DAILY for 30 Days, #30 TAB Prov:JACY POST MD 03/26/22 Ibuprofen Micronized (MOTRIN TABLET) 600 Mg Tb, 600 MG PO TID for 7 Days, #21 TAB Prov:JACY POST MD 03/26/22 Meloxicam (Mobic) 7.5 Mg Tab, 7.5 MG PO BID, #30 TAB Prov:TEDDY MARTE 07/19/21 Reported Medications Trazodone Hcl (Trazodone Hcl) 100 Mg Tab, 1 TAB PO QPM, #30 TAB 1 Refill 11/02/23 Quetiapine Fumerate (Seroquel) 50 Mg Tab, 1 TAB PO QPM, #30 TAB 2 Refills 11/02/23 Hydrocodone-Acetaminophen (Hydrocodone Bitartrate/AC 5-325 mg) 1 Tab Tab, 1 TAB PO Q6HR PRN for PAIN SCALE 7 THRU 10, TAB 03/22/22 Information Source: Patient, Emergency Med Personnel Mode of Arrival: EMS Severity: Moderate Timing: Weeks (1) Duration: Since onset Symptoms: Other History of: None associated signs and symptoms: Other Past Medical History PAST MEDICAL HISTORY: Anxiety, COPD, HTN, Schizophrenia Surgical History: Surgical History (Other): Multiple orthopedic sx of upper and lower extremities. DIE CLEANER History: No Pertinent DIE CLEANER History Family History Family History: Unknown Social History Smoker: Non-Smoker Alcohol: Denies ETOH Use Drugs: Denies Drug Use Lives In: Homeless Constitutional: denies: chills, diaphoresis, fatigue, fever, malaise, sweats, weakness, others EENTM: denies: blurred vision, double vision, ear bleeding, ear discharge, ear drainage, ear pain, ear ringing, eye pain, eye redness, hearing loss, mouth pain, mouth swelling, nasal discharge, nose bleeding, nose congestion, nose pain, photophobia, tearing, throat pain, throat swelling, voice changes, others Respiratory: denies: cough, hemoptysis, orthopnea, SOB at rest, shortness of breath, SOB with excertion, stridor, wheezing, others Cardiovascular: denies: chest pain, dizzy spells, diaphoresis, Dyspnea on exertion, edema, irregular heart beat, left arm pain, lightheadedness, palpitat ions, PND, syncope, others Gastrointestinal: denies: abdomen distended, abdominal pain, blood streaked bow els, constipated, diarrhea, dysphagia, difficulty swallowing, hematemesis, melena, nausea, poor appetite, poor fluid intake, rectal bleeding, rectal pain, vomiting, others Genitourinary: reports: incontinence; denies: abnormal vagina bleeding, burning, dyspareunia, dysuria, flank pain, frequency, hematuria, pain, , vagina discharge, urgency, others Neurological: denies: dizziness, fainting, headache, left sided numbness, left sided weakness, numbness, paresthesia, pre-existing deficit, right sided numbness, right sided weakness, seizure, speech problems, tingling, tremors, weakness, others Musculoskeletal: denies: back pain, gout, joint pain, joint swelling, muscle pain, muscle stiffness, neck pain, others Integumetry: denies: bruises, change in color, change in hair/nails, dryness, laceration, lesions, lumps, rash, wounds, others Allergic/Immunocompromised: denies: Difficulty Healing, Frequent Infections, Hives, Itching, others Hematologic/Lymphatic: denies: anemia, blood clots, easy bleeding, easy bruising, swollen glands, others Endocrine: denies: excessive hunger, excessive sweating, excessive thirst, excessive urination, flushing, intolerance to cold, intolerance to heat, unexplained weight gain, unexplained weight loss, others Psychiatric: denies: anxiety, bipolar disorder, depression, hopeless, panic di sorder, schizophrenia, sleepless, suicidal, others All Other Systems: Reviewed and Negative Physical Exam General Appearance: Moderate Distress HEENT: Normal ENT Inspection, Pharynx Normal, TMs Normal Neck: Full Range of Motion, Non-Tender, Normal, Normal Inspection Respiratory: Chest Non-Tender, Lungs Clear, No Accessory Muscle Use, No Respiratory Distress, Normal Breath Sounds Cardiovascular: Regular Rate/Rhythm Breast Exam: Deferred Gastrointestinal: No Organomegaly, Non Tender, No Pulsatile Mass, Normal Bowel Sounds, Soft Genitalia: Deferred Pelvic: Deferred Rectal: Deferred Extremities: No calf tenderness, Normal inspection, Normal range of motion, Non-tender, No pedal edema Musculoskeletal : Apperance: Normal Neurologic: Alert, No Motor Deficits, No Sensory Deficits Cerebellar Function: NOT DONE Reflexes: NOT DONE Skin: Dry, Normal Color, Warm Peripheral Pulses: 3+ Radial (R), 3+ Radial (L) Lymphatic: No Adenopathy Was a procedure done? Was a procedure done?: No Differential Diagnosis Kidney stone (Female): N/A Other Differential Diagnosis Stress incontinence, Urge incontinence, Uterine prolapse X-Ray, Labs, Meds, VS Vital Signs Date Time Temp Pulse Resp B/P (MAP) Pulse Ox O2 Delivery O2 Flow Rate FiO2 02/05/25 11:02 148/87 02/05/25 10:02 163/107 02/05/25 09:53 64 18 95 Room Air* 0 21 02/05/25 09:53 98.7 66 18 160/89 (112) 94 98.7 02/05/25 08:58 98.5 74 18 168/100 99 98.5 Lab Test 02/05/25 09:37 Range/Units Urine Color Light-yellow Yellow Urine Clarity Clear Clear Urine pH 7.0 5.0-9.0 Urine Specific [place] 1.015 1.001-1.035 Urine Protein Negative Negative Urine Ketones Negative Negative Urine Blood Negative Negative /uL Urine Nitrite Negative Negative Urine Bilirubin Negative Negative Urine Urobilinogen Normal Negative mg/dL Urine Leukocyte Esterase Negative Negative /uL Urine RBC 1 0 - 4 /hpf Urine Microscopic WBC 1 0-5 /HPF Urine Squamous Epithelial Cells Few <5 /hpf Urine Bacteria None seen None Seen /hpf Urine Glucose Normal Normal mg/dL Current Medications Medications (Trade) Dose Ordered Sig/Alana Route Start Time Stop Time Status Last Admin Clonidine HCl (Catapres Tablet) 0.2 mg ONCE ONCE PO 02/05/25 09:00 02/05/25 09:01 DC 02/05/25 10:02 Acetaminophen/ Hydrocodone Bitart ([place] 10/325MG Tab) 1 tab ONCE ONCE PO 02/05/25 09:00 02/05/25 09:01 DC 02/05/25 10:02 EXAM: XY PELVIS AP CLINICAL INDICATION: hippain TECHNIQUE: XY PELVIS AP Comparison: CT CT AB PEL WO CON-NO ORAL OR IV on DOS: 02/02/25, CT CT AB PEL WO CON-NO ORAL OR IV on DOS: 09/26/22, CT ABD PELVIS WO CONTRAST on DOS: 03/21/22 FINDINGS/IMPRESSION: There is no evidence of acute fracture or dislocation. Cortical plate and surgical screws involving the right acetabulum. Moderate right hip osteoarthritis. Patient alert. Vitals stable. No sign of distress. Answering questions. Moving all extremities. X-ray of the pelvis does show osteoarthritis. Blood pressure slightly elevated. Was given clonidine. Was given pain medication. Was given prescription of Motrin. Explained to the patient. Was told to follow up with her primary care physician. Was told to come back if there is any problem. Time of 1ST Reevaluation: 09:30 Reevaluation 1ST: Improved Patient Education/Counseling: Diagnosis, Treatment, Prognosis Family Education/Counseling: No Family Present SEPSIS Sepsis Screen Physician Orders Pelvis Ap (02/05/25 09:00) Vital Signs Date Time Temp Pulse Resp B/P (MAP) Pulse Ox O2 Delivery O2 Flow Rate FiO2 02/05/25 11:02 148/87 02/05/25 10:02 163/107 02/05/25 09:53 64 18 95 Room Air* 0 21 02/05/25 09:53 98.7 66 18 160/89 (112) 94 98.7 02/05/25 08:58 98.5 74 18 168/100 99 98.5 Medications Medications Dose Ordered Sig/Alana Route Start Time Stop Time Status Last Admin Dose Admin Acetaminophen/ Hydrocodone Bitart 1 tab ONCE ONCE PO 02/05/25 09:00 02/05/25 09:01 DC 02/05/25 10:02 Clonidine HCl 0.2 mg ONCE ONCE PO 02/05/25 09:00 02/05/25 09:01 DC 02/05/25 10:02 Departure 1 Departure Time of Disposition: 12:03 Impression: Primary Impression: Osteoarthritis of right hip Qualified Codes: M16.11 - Unilateral primary osteoarthritis, right hip Disposition: HOME / SELF CARE / HOMELESS Condition: Good e-Prescriptions Ibuprofen Micronized (MOTRIN TABLET) 600 Mg Tb 600 MG PO TID PRN for 3 Days, #9 TAB *Black box warning-NSAIDS can increase risk of HI & hypertension, GI irritation, ulceration, bleed, perferation. Do not use post cardiac surgery. Use short duration/lowest effective dose. Prov: ROSARIO DEE MD 02/05/25 Discharged With: Self Critical Care Note Critical Care Time?: No Stability Stability form required: No I personally scribed for ROSARIO DEE MD ([email or web address]) on 02/05/25 at 08:58. Electronically submitted by Brittaney Gonzalez ([facility]). I personally scribed for ROSARIO DEE MD ([email or web address]) on 02/05/25 at 10:52. Electronically submitted by Brittaney Gonzalez ([facility]). ROSARIO DEE MD Feb 05, 2025 08:58
[2025-02-05 09:49] LABS: Urine Protein, UAD Negative (Negative)
[2025-02-05 09:53] VITALS: PULSE 64; RESP 18; TEMP 98.7; O2SAT 95
[2025-02-05] MEDS: HYDROcodone-ACET 10/325MG TAB PO ONE (10:02)
--- NOTE | 2025-02-05 10:16 | DVH ---
EXAM: XY PELVIS AP CLINICAL INDICATION: hippain TECHNIQUE: XY PELVIS AP Comparison: CT CT AB PEL WO CON-NO ORAL OR IV on DOS: 02/02/25, CT CT AB PEL WO CON-NO ORAL OR IV on D OS: 09/26/22, CT ABD PELVIS WO CONTRAST on DOS: 03/21/22 FINDINGS/IMPRESSION: There is no evidence of acute fracture or dislocation. Cortical plate and surgical screws involving the right acetabulum. Moderate right hip osteoarthritis.
[2025-02-05] MEDS ORDERED: IBU600T PO (12:04)
[2025-02-05 12:09] VITALS: BP 165/78; PULSE 55; RESP 19; O2SAT 95
== END 2025-02-05 14:30 | disposition home or self-care (01) ==
LOC: ER 08:46 → EDBD 08:46 → ER 14:30
DX: M16.11 Unilateral primary osteoarthritis, right hip (principal); F41.9 Anxiety disorder, unspecified; F20.9 Schizophrenia, unspecified; I10 Essential (primary) hypertension; J44.9 Chronic obstructive pulmonary disease, unspecified; Z88.5 Allergy status to narcotic agent; Z79.52 Long term (current) use of systemic steroids; Z59.00 Homelessness unspecified; Z79.1 Long term (current) use of non-steroidal anti-inflammatories (NSAID); Z79.899 Other long term (current) drug therapy
CPT/HCPCS: 51702; 72170; 81001

== ENCOUNTER 2025-03-14 19:38 | Emergency (ER) | payer MEDICAID ==
[~2025-03-14] VITALS: Ht 172.7 cm; Wt 70.0 kg
--- NOTE | 2025-03-14 20:17 | ED.PDOC ---
History of Present Illness HPI Comments 64 y/o F is BIBA for c/c of right hip pain x3 days. Significant history of chronic right hip pain and surgery. Denies any recent trauma or injuries. Chief Complaint: Lower Extremity Time Seen by MD: 20:00 Primary Care Provider: ? Reviewed Notes: Nurses Notes, Special Needs Child Caregiver Notes, Medications, Allergies Allergies: Coded Allergies: Codeine (Verified Allergy, Unknown, 03/23/22) vomiting Home Meds Active Scripts Ibuprofen Micronized (MOTRIN TABLET) 600 Mg Tb, 600 MG PO TID PRN for 3 Days, #9 TAB *Black box warning-NSAIDS can increase risk of [place] & hypertension, GI irritation, ulceration, bleed, perferation. Do not use post cardiac surgery. Use short duration/lowest effective dose. Prov:ROSARIO DEE MD 02/05/25 Acetaminophen (Tylenol Extra Strength Fo) 500 Mg Tab, 1000 MG PO BID, #30 TAB Prov:TEDDY MARTE 07/02/24 Sulfamethoxazole W/Trimethopri (Bactrim Ds Tablet) 1 Tab Tb, 1 TAB PO BID for 7 Days, #14 TAB 0 Refills Prov:KATHRINE MEADE 03/26/24 Cyanocobalamin (B12) 1,000 Mcg Cap, 1000 MCG PO DAILY for 7 Days, #1 CAP 0 Refills Prov:HASEEB ROJAS RESIDENT 11/05/23 Sucralfate (CARAFATE) 1 Gm Tab, 1 GM OR QID for 30 Days, #120 TAB 0 Refills Prov:HASEEB ROJAS RESIDENT 11/05/23 Pantoprazole Sodium Sesquihydr (Pantoprazole Sodium) 40 Mg Tab, 40 MG PO BID for 30 Days, #60 TAB 2 Refills Prov:HASEEB ROJAS RESIDENT 11/05/23 Ibuprofen (Ibuprofen) 800 Mg Tab, 1 TAB PO TID, #30 TAB Prov:TEDDY MARTE 10/11/23 Ibuprofen (Ibuprofen) 800 Mg Tab, 1 TAB PO TID, #30 TAB Prov:TEDDY MARTE 09/12/23 Baclofen (Baclofen) 5 Mg Tab, 5 MG PO BID, #10 TAB As needed for muscle spasm Prov:EDGARD MARS NP 08/26/23 Naproxen (NAPROSYN TABLET) 500 Mg Tb, 1 TAB PO BID, #10 TAB as needed for pain Prov:REJI MARSCANDICE Danial BUCCARO 08/26/23 Albuterol Sulfate (Albuterol Sulfate Hfa) 108 Mcg/Act Aer, 108 MCG IN TID, #90 AER Prov:TEDDY MARTE 04/06/23 Prednisone (Prednisone) 20 Mg Tab, 60 MG PO DAILY, #15 MG Prov:TEDDY MARTE 04/06/23 Promethazine-Dm (Promethazine Dm 6.25-15 mg/5Ml) 1 Diana Diana, 5 ML PO TID, #150 ML Prov:TEDDY MARTE 04/06/23 Ibuprofen Micronized (Ibuprofen) 800 Mg Tab, 800 MG PO Q8HP PRN, #20 TAB Prov:MARVIN GARCIA PAC 11/09/22 Hydrocodone-Acetaminophen (Hydrocodone Bitartrate/AC 10-325 mg) 1 Tab Tab, 1 TAB PO Q4HPRN PRN, #15 TAB 0 Refills Prov:HARPREET MADDOX 11/09/22 Multiple Vitamin (Mvi Tab) 1 Tab Tb, 1 TAB PO DAILY for 30 Days, #30 TAB Prov:JACY POST MD 03/26/22 Levofloxacin (Levaquin) 500 Mg Tab, 500 MG PO DAILY for 7 Days, #7 TAB Prov:JACY POST MD 03/26/22 Pantoprazole Sodium Sesquihydr (Pantoprazole Sodium) 40 Mg Tab, 40 MG PO DAILY for 30 Days, #30 TAB Prov:JACY POST MD 03/26/22 Ibuprofen Micronized (MOTRIN TABLET) 600 Mg Tb, 600 MG PO TID for 7 Days, #21 TAB Prov:JACY POST MD 03/26/22 Meloxicam (Mobic) 7.5 Mg Tab, 7.5 MG PO BID, #30 TAB Prov:TEDDY MARTE 07/19/21 Reported Medications Trazodone Hcl (Trazodone Hcl) 100 Mg Tab, 1 TAB PO QPM, #30 TAB 1 Refill 11/02/23 Quetiapine Fumerate (Seroquel) 50 Mg Tab, 1 TAB PO QPM, #30 TAB 2 Refills 11/02/23 Hydrocodone-Acetaminophen (Hydrocodone Bitartrate/AC 5-325 mg) 1 Tab Tab, 1 TAB PO Q6HR PRN for PAIN SCALE 7 THRU 10, TAB 03/22/22 Information Source: Patient, Emergency Med Personnel Mode of Arrival: EMS Severity: Moderate Timing: Hours Duration: Since onset Prehospital treatment: 12 Lead EKG, Psychiatric Nursing Assistant Past Medical History PAST MEDICAL HISTORY: Anxiety, COPD, HTN, Schizophrenia Surgical History: PARTS SALVAGER History: No Pertinent PARTS SALVAGER History Family History Family History: Unknown Social History Smoker: Non-Smoker Alcohol: Denies ETOH Use Drugs: Denies Drug Use Lives In: Homeless All Other Systems: Reviewed and Negative (As per HPI) Physical Exam General Appearance: No Apparent Distress, Normal HEENT: Pharynx Normal Neck: Full Range of Motion, Non-Tender Respiratory: Lungs Clear, No Respiratory Distress, Normal Breath Sounds Cardiovascular: No Murmur, Normal Peripheral Pulses, Regular Rate/Rhythm Breast Exam: Deferred Gastrointestinal: Non Tender, Soft Genitalia: Deferred Pelvic: Deferred Rectal: Deferred Extremities: No calf tenderness, Normal range of motion, Non-tender, No pedal edema Musculoskeletal : Location: Left Extremity Location: Hip (TENDERNESS PALPATED IN LEFT GROIN AND LATERAL HIP STRENGTH SENSORY MOTION INTACT NO ROTATION OR SHORTENING OF LEFT LEG.) Apperance: Normal Neurologic: Alert, No Motor Deficits, Normal Affect, Normal Mood, No Sensory Deficits Cerebellar Function: Normal Reflexes: NOT DONE Skin: Dry, Normal Color, Warm Lymphatic: No Adenopathy Was a procedure done? Was a procedure done?: No Differential Dx Considerations may include: fractures, contusions, sprain, dislocation,, musculoskeletal pain, among others X-Ray, Labs, Meds, VS Vital Signs Date Time Temp Pulse Resp B/P (MAP) Pulse Ox O2 Delivery O2 Flow Rate FiO2 03/14/25 20:56 98.7 89 16 144/98 (113) 95 98.7 03/14/25 19:38 98.3 108 24 153/[address] [address] Ph: [phone] DIAGNOSTIC IMAGING Diagnostic Imaging Report : [id number] Signed PATIENT: LUIS CRANE ACCT: [id number] UNIT: [id number] : 1960 LOC: ER ROOM / BED: / AGE / SEX: 64 / F ADM STATUS: REG ER SERVICE 99 ORDERING PHYSICIAN: ROGER THOMAS PROCEDURE(s): RHIP - R HIP COMPLETE XRAY REASON: Right hip pain ORDER NUMBER(s): [id number], ACCESSION NUMBER(s): [id number] CLINICAL INDICATION: Right hip pain TECHNIQUE: 3 radiographic views of the right hip were obtained. Comparison: XY R HIP COMPLETE XRAY on DOS: 07/02/24, XY R HIP COMPLETE XRAY on DOS: 10/11/23, XY R HIP COMPLETE XRAY on DOS: 09/12/23 FINDINGS/IMPRESSION: There is no evidence of acute fracture or dislocation. Severe degenerative changes of the right hip. Postsurgical changes of the right pelvis with chronic fracture deformity of the right inferior pubic ramus. ATED BY: PILY MORILLO DO DICTATED DATE/TIME: 03/14/252037 SIGNED BY: PILY MORILLO DO SIGNED DATE/TIME: 03/14/252037 CC: X-Ray, Labs, Meds, VS Comment PERCOCET 5 mg p.o.. Reports improvement in pain and function requesting discharge at this time. Script trial of Medrol Dosepak and muscle relaxer advised take medication as prescribed side effects discussed. Advised to alternate between ice and heat. Advised to rest. Advised to follow up with PCP in 2-3 days as necessary consider further treatments such as MRI, physical therapy, or pain managment referral if symptoms persist. Advised on ER return precautions for increasing pain, numbness, weakness, loss of bowel bladder control or saddle anesthesia. Patient indicates understanding agrees with discharge plan of care. Time of 1ST Reevaluation: 20:00 Reevaluation 1ST: Unchanged Time of 2ND Reevaluation: 21:36 Reevaluation 2ND: Improved Patient Education/Counseling: Diagnosis, Treatment, Need For Follow Up Family Education/Counseling: No Family Present SEPSIS Sepsis Screen Physician Orders R Hip Complete Xray (03/14/25 20:00) Vital Signs Date Time Temp Pulse Resp B/P (MAP) Pulse Ox O2 Delivery O2 Flow Rate FiO2 03/14/25 20:56 98.7 89 16 144/98 (113) 95 98.7 03/14/25 19:38 98.3 108 24 153/95 94 98.3 Departure 1 Departure Time of Disposition: 21:36 Impression: Primary Impression: Arthritis of left hip Disposition: HOME / SELF CARE / HOMELESS Condition: Stable e-Prescriptions Methocarbamol (Methocarbamol) 500 Mg Tab 500 MG PO HS PRN for 10 Days, #10 TAB Prov: ROGER THOMAS COMPOSITION MIXER 03/14/25 Methylprednisolone (Medrol Dosepak) 4 Mg Matt 4 MG PO UD for 6 Days, #21 TAB UAD Prov: ROGER THOMAS COMPOSITION MIXER 03/14/25 Discharged With: Self Critical Care Note Critical Care Time?: No Stability Stability form required: No Heart Score Heart Score: Heart Score Response (Comments) Value History N/A 0 EKG N/A 0 Age N/A 0 Risk Factors N/A 0 Troponin N/A 0 Total 0 I personally scribed for ER ([email or web address]) on 03/14/25 at 20:17. Electronically sub mitted by Tomas Mccormick ([email or web address]). I personally scribed for ER ([email or web address]) on 03/14/25 at 21:30. Electronically submitted by Tomas Mccormick ([email or web address]). ER Mar 14, 2025 20:17 ROGER THOMAS [facility] Mar 14, 2025 21:39
--- NOTE | 2025-03-14 20:40 | DVH ---
CLINICAL INDICATION: Right hip pain TECHNIQUE: 3 radiographic views of the right hip were obtained. Comparison: XY R HIP COMPLETE XRAY on DOS: 07/02/24, XY R HIP COMPLETE XRAY on DOS: 10/11/23, XY R HIP COMPLETE XRAY on DOS: 09/12/23 FINDINGS/IMPRESSION: There is no evidence of acute fracture or dislocation. Severe degenerative changes of the right hip. Postsurgical changes of the right pelvis with chronic fracture deformity of the right inferior pubic ramus.
[2025-03-14 20:56] VITALS: BP 144/98; TEMP 98.7
[2025-03-14] MEDS ORDERED: METH4PAK PO (21:39)
[2025-03-14] MEDS ORDERED: METH-1181 PO (21:39)
[2025-03-14] MEDS: OXYCODONE W/ ACETAMINOPHEN 5/325MG TABLET PO ONE (22:05)
[2025-03-14 22:09] VITALS: PULSE 89; RESP 16; O2SAT 95
== END 2025-03-14 22:09 | disposition home or self-care (01) ==
LOC: EDBD 19:38 → ER 19:40
DX: M16.12 Unilateral primary osteoarthritis, left hip (principal); F41.9 Anxiety disorder, unspecified; I10 Essential (primary) hypertension; F20.9 Schizophrenia, unspecified; J44.9 Chronic obstructive pulmonary disease, unspecified; Z59.00 Homelessness unspecified; Z79.899 Other long term (current) drug therapy; Z88.5 Allergy status to narcotic agent
CPT/HCPCS: 73502

== ENCOUNTER 2025-03-29 10:15 | Emergency (ER) | payer MEDICAID ==
[~2025-03-29] VITALS: Ht 170.2 cm; Wt 68.4 kg
[2025-03-29] MEDS: ACETAMINOPHEN 500 MG TAB or CAP PO ONE ×2 (10:45→14:31)
[2025-03-29] MEDS: KETOROLAC TROMETH 60MG/2ML VIAL IM ONE ×2 (10:45→14:31)
--- NOTE | 2025-03-29 11:15 | ED.PDOC ---
History of Present Illness HPI Comments This is a 64 year old female past medical history of numerous prior traumatic orthopedic injuries and ear injury presenting to the ED with chief complaint of right ear pain over the past few weeks. Patient reports that she has been experiencing worsening right sided ear pain at a surgical opening she has behind it for the past few weeks with associated nasal congestion. Reports being given a prescription for antibiotics recently within the past couple of weeks, however, did not change her symptoms. Patient relays that she has not followed up with her PCP regarding these issues. Patient states that she has also had worsening right shoulder, hip, and ankle pain, exacerbated when lifting up her arm for the past few days. Patient denies any fever, chills, cough, fall, or injury. Chief Complaint: Body Pain Time Seen by MD: 11:13 Primary Care Provider: ? Reviewed Notes: Nurses Notes, Medications, Allergies Allergies: Coded Allergies: Codeine (Verified Allergy, Unknown, 03/23/22) vomiting Home Meds Active Scripts Ibuprofen Micronized (MOTRIN TABLET) 600 Mg Tb, 600 MG PO TID PRN for 3 Days, #9 TAB *Black box warning-NSAIDS can increase risk of [place] & hypertension, GI irritation, ulceration, bleed, perferation. Do not use post cardiac surgery. Use short duration/lowest effective dose. Prov:ROSARIO DEE MD 02/05/25 Acetaminophen (Tylenol Extra Strength Fo) 500 Mg Tab, 1000 MG PO BID, #30 TAB Prov:TEDDY MARTE 07/02/24 Sulfamethoxazole W/Trimethopri (Bactrim Ds Tablet) 1 Tab Tb, 1 TAB PO BID for 7 Days, #14 TAB 0 Refills Prov:KATHRINE MEADE 03/26/24 Cyanocobalamin (B12) 1,000 Mcg Cap, 1000 MCG PO DAILY for 7 Days, #1 CAP 0 Refills Prov:HASEEB ROJAS 11/05/23 Sucralfate (CARAFATE) 1 Gm Tab, 1 GM OR QID for 30 Days, #120 TAB 0 Refills Prov:HASEEB ROJAS 11/05/23 Pantoprazole Sodium Sesquihydr (Pantoprazole Sodium) 40 Mg Tab, 40 MG PO BID for 30 Days, #60 TAB 2 Refills Prov:HASEEB ROJAS 11/05/23 Ibuprofen (Ibuprofen) 800 Mg Tab, 1 TAB PO TID, #30 TAB Prov:TEDDY MARTE 10/11/23 Ibuprofen (Ibuprofen) 800 Mg Tab, 1 TAB PO TID, #30 TAB Prov:TEDDY MARTE 09/12/23 Baclofen (Baclofen) 5 Mg Tab, 5 MG PO BID, #10 TAB As needed for muscle spasm Prov:JERADREJIALDA Q CLOTH STRETCHER 08/26/23 Naproxen (NAPROSYN TABLET) 500 Mg Tb, 1 TAB PO BID, #10 TAB as needed for pain Prov:JERADDWIGHTA Q CLOTH STRETCHER 08/26/23 Albuterol Sulfate (Albuterol Sulfate Hfa) 108 Mcg/Act Aer, 108 MCG IN TID, #90 AER Prov:TEDDY MARTE 04/06/23 Prednisone (Prednisone) 20 Mg Tab, 60 MG PO DAILY, #15 MG Prov:TEDDY MARTE 04/06/23 Promethazine-Dm (Promethazine Dm 6.25-15 mg/5Ml) 1 Diana Diana, 5 ML PO TID, #150 ML Prov:TEDDY MARTE 04/06/23 Ibuprofen Micronized (Ibuprofen) 800 Mg Tab, 800 MG PO Q8HP PRN, #20 TAB Prov:MARVIN GARCIA 11/09/22 Hydrocodone-Acetaminophen (Hydrocodone Bitartrate/AC 10-325 mg) 1 Tab Tab, 1 TAB PO Q4HPRN PRN, #15 TAB 0 Refills Prov:HARPREET MADDOX 11/09/22 Multiple Vitamin (Mvi Tab) 1 Tab Tb, 1 TAB PO DAILY for 30 Days, #30 TAB Prov:JACY POST MD 03/26/22 Levofloxacin (Levaquin) 500 Mg Tab, 500 MG PO DAILY for 7 Days, #7 TAB Prov:JACY POST MD 03/26/22 Pantoprazole Sodium Sesquihydr (Pantoprazole Sodium) 40 Mg Tab, 40 MG PO DAILY for 30 Days, #30 TAB Prov:JACY POST MD 03/26/22 Ibuprofen Micronized (MOTRIN TABLET) 600 Mg Tb, 600 MG PO TID for 7 Days, #21 TAB Prov:JACY POST MD 03/26/22 Meloxicam (Mobic) 7.5 Mg Tab, 7.5 MG PO BID, #30 TAB Prov:TEDDY MARTE 07/19/21 Reported Medications Trazodone Hcl (Trazodone Hcl) 100 Mg Tab, 1 TAB PO QPM, #30 TAB 1 Refill 11/02/23 Quetiapine Fumerate (Seroquel) 50 Mg Tab, 1 TAB PO QPM, #30 TAB 2 Refills 11/02/23 Hydrocodone-Acetaminophen (Hydrocodone Bitartrate/AC 5-325 mg) 1 Tab Tab, 1 TAB PO Q6HR PRN for PAIN SCALE 7 THRU 10, TAB 03/22/22 Discontinued Scripts Methocarbamol (Methocarbamol) 500 Mg Tab, 500 MG PO HS PRN for 10 Days, #10 TAB Prov:ROGER THOMSA PAINT BRUSH MAKER 03/14/25 Information Source: Patient Mode of Arrival: Ambulatory Severity: Moderate Timing: Days Duration: Since onset Prehospital treatment: None Past Medical History PAST MEDICAL HISTORY: Anxiety, COPD, HTN, Schizophrenia Surgical History: Surgical History (Other): Right ear surgery, right shoulder surgery, right ankle/foot surgery, brain surgery PUBLIC HEALTH PROFESSOR History: No Pertinent PUBLIC HEALTH PROFESSOR History Family History Family History: Reviewed,noncontributory to illness, Unknown Social History Smoker: Non-Smoker Alcohol: Denies ETOH Use Drugs: Denies Drug Use Lives In: Homeless Constitutional: denies: chills, diaphoresis, fatigue, fever, malaise, sweats, weakness, others EENTM: reports: ear pain; denies: blurred vision, double vision, ear bleeding, ear discharge, ear drainage, ear ringing, eye pain, eye redness, hearing loss, mouth pain, mouth swelling, nasal discharge, nose bleeding, nose congestion, nose pain, photophobia, tearing, throat pain, throat swelling, voice changes, others Respiratory: denies: cough, hemoptysis, orthopnea, SOB at rest, shortness of breath, SOB with excertion, stridor, wheezing, others Cardiovascular: denies: chest pain, dizzy spells, diaphoresis, Dyspnea on exertion, edema, irregular heart beat, left arm pain, lightheadedness, palpitations, PND, syncope, others Gastrointestinal: denies: abdomen distended, abdominal pain, blood streaked bowels, constipated, diarrhea, dysphagia, difficulty swallowing, hematemesis, melena, nausea, poor appetite, poor fluid intake, rectal bleeding, rectal pain, vomiting, others Genitourinary: denies: abnormal vagina bleeding, burning, dyspareunia, dysuria, flank pain, frequency, hematuria, incontinence, pain, , vagina discharge, urgency, others Neurological: denies: dizziness, fainting, headache, left sided numbness, left sided weakness, numbness, paresthesia, pre-existing deficit, right sided numbness, right sided weakness, seizure, speech problems, tingling, tremors, weakness, others Musculoskeletal: reports: joint pain, muscle pain; denies: back pain, gout, joint swelling, muscle stiffness, neck pain, others Integumetry: denies: bruises, change in color, change in hair/nails, dryness, laceration, lesions, lumps, rash, wounds, others Allergic/Immunocompromised: denies: Difficulty Healing, Frequent Infections, Hives, Itching, others Hematologic/Lymphatic: denies: anemia, blood clots, easy bleeding, easy bruising, swollen glands, others Endocrine: denies: excessive hunger, excessive sweating, excessive thirst, excessive urination, flushing, intolerance to cold, intolerance to heat, unexplained weight gain, unexplained weight loss, others Psychiatric: denies: anxiety, bipolar disorder, depression, hopeless, panic disorder, schizophrenia, sleepless, suicidal, others All Other Systems: Reviewed and Negative Physical Exam General Appearance: No Apparent Distress, Normal HEENT: Pharynx Normal, TMs Normal, Other (Surgical hole behind right ear with no drainage, no erythema, no fluctuance. No teeth noted. Normal gums) Neck: Full Range of Motion, Non-Tender, Normal, Normal Inspection Respiratory: Chest Non-Tender, Lungs Clear, No Accessory Muscle Use, No Respiratory Distress, Normal Breath Sounds Cardiovascular: No Edema, No JVD, No Murmur, No Gallop, Normal Peripheral Pulses, Regular Rate/Rhythm Breast Exam: Deferred Gastrointestinal: No Organomegaly, Non Tender, No Pulsatile Mass, Normal Bowel Sounds, Soft Genitalia: Deferred Pelvic: Deferred Rectal: Deferred Extremities: No calf tenderness, Normal capillary refill, Normal inspection, Normal range of motion, Non-tender, No pedal edema Musculoskeletal : Location: Right Extremity Location: Ankle, Hip, Shoulder Apperance: Tenderness (Right shoulder, hip, and ankle tenderness with full ROM) Neurologic: Alert, stunt double II-XII nml as Tested, No Motor Deficits, Normal Affect, Normal Mood, No Sensory Deficits Cerebellar Function: Normal Reflexes: Normal Skin: Dry, Normal Color, Warm Lymphatic: No Adenopathy Was a procedure done? Was a procedure done?: No Differential Dx Considerations may include: Chronic Pain vs Seasonal Allergies vs Osteoarthritis X-Ray, Labs, Meds, VS Vital Signs Date Time Temp Pulse Resp B/P (MAP) Pulse Ox O2 Delivery O2 Flow Rate FiO2 03/29/25 12:36 98.3 78 18 139/82 (101) 98 98.3 03/29/25 12:36 78 18 98 Room Air 03/29/25 10:16 97.9 74 18 159/98 98 97.9 Lab Test 03/29/25 12:40 03/29/25 10:48 Range/Units Urine Color Light-yellow Yellow Urine Clarity Clear Clear Urine pH 6.0 5.0-9.0 Urine Specific [place] 1.017 1.001-1.035 Urine Protein Negative Negative Urine Ketones Negative Negative Urine Blood Negative Negative /uL Urine Nitrite Negative Negative Urine Bilirubin Negative Negative Urine Urobilinogen Normal Negative mg/dL Urine Leukocyte Esterase Negative Negative /uL Urine RBC <1 0 - 4 /hpf Urine Microscopic WBC 1 0-5 /HPF Urine Squamous Epithelial Cells Few <5 /hpf Urine Bacteria None seen None Seen /hpf Urine Glucose Normal Normal mg/dL White Blood Count 8.0 4.4-10.8 10^3/uL Red Blood Count 4.12 4.0-5.20 10^6/uL Hemoglobin 13.8 12.2-16.2 g/dL Hematocrit 40.0 36.0-46.0 % Mean Corpuscular Volume 97.0 80.0-100.0 fL Mean Corpuscular Hemoglobin 33.5 H 28.0-32.0 pg Mean Corpuscular Hemoglobin Concent 34.5 32.0-36.0 g/dL Red Cell Distribution Width 13.0 11.8-14.3 % Platelet Count 232 140-450 10^3/uL Mean Platelet Volume 9.0 6.9-10.8 fL Neutrophils (%) (Auto) 65.3 37.0-80.0 % Lymphocytes (%) (Auto) 25.0 10.0-50.0 % Monocytes (%) (Auto) 8.1 0.0-12.0 % Eosinophils (%) (Auto) 1.1 0.0-7.0 % Basophils (%) (Auto) 0.5 0.0-2.0 % Neutrophils # (Auto) 5.2 1.6-8.6 10 ^3/uL Lymphocytes # (Auto) 2.0 0.4-5.4 10 ^3/uL Monocytes # (Auto) 0.6 0-1.3 10 ^3/uL Eosinophils # (Auto) 0.1 0-0.8 10 ^3/uL Basophils # (Auto) 0 0-0.2 10 ^3/uL Nucleated Red Blood Cells 0.1 % Sodium Level 141 136-145 mmol/L Potassium Level 4.1 3.5-5.1 mmol/L Chloride Level 105 98-107 mmol/L Carbon Dioxide Level 28 20-31 mmol/L Anion Gap 8 5-15 Blood Urea Nitrogen 14 9-23 mg/dL Creatinine 0.82 0.550-1.02 mg/dL Glomerular Filtration Rate Calc 81 >90 mL/min BUN/Creatinine Ratio 17.1 10.0-20.0 Serum Glucose 87 74-106 mg/dL Calcium Level 10.1 8.7-10.4 mg/dL Time of 1ST Reevaluation: 12:11 Reevaluation 1ST: Unchanged Time of 2ND Reevaluation: 13:56 Reevaluation 2ND: Improved Patient Education/Counseling: Diagnosis, Treatment Family Education/Counseling: No Family Present SEPSIS Sepsis Screen Date sepsis recognized/suspect: Mar 29, 2025 Time Sepsis recognized/suspect: 1014 Recent Procedure: No On Antibiotic Therapy: No Respiratory Rate >20: No Heart Rate >90: No Temp<36 C (96.8 F) or >38.3 C: No SBP <90 or MAP <65 mmHG: No New Acute Mental Status Change: No Is the patient on CPAP, BIPAP,: No Physician Orders R Shoulder 2+ View Xray (03/29/25 11:28) R Hip Complete Xray (03/29/25 11:28) R Ankle 2 View Xray (03/29/25 11:28) Vital Signs Date Time Temp Pulse Resp B/P (MAP) Pulse Ox O2 Delivery O2 Flow Rate FiO2 03/29/25 12:36 98.3 78 18 139/82 (101) 98 98.3 03/29/25 12:36 78 18 98 Room Air 03/29/25 10:16 97.9 74 18 159/98 98 97.9 Laboratory Tests Test 03/29/25 10:48 White Blood Count 8.0 10^3/uL (4.4-10.8) Departure 1 Departure Time of Disposition: 13:59 (64-year-old female presenting for numerous complaints that have been progressing over the past weeks. Patient reporting pain along the right ear where she has had prior complex surgery which appears to have created a new right-sided external auditory canal behind her ear. She has no abnormal drainage noted, no surrounding erythema, warmth, no findings concerning for current infectious process. Already recently completed a course of antibiotics and states it has not changed her symptoms. On chronic right shoulder, hip, ankle pain. I have and ankle were all performed which show prior surgical repair of the hardware, however, no evidence of any acute bony pathology. Given the total body pain basic labs were also obtained. CBC with no evidence of critical leukocytosis or significant anemia. Metabolic panel with no evidence bodies or acute kidney insufficiency. She was offered IM Toradol, oral Tylenol for analgesia, however, declined. Explained to the patient that she would not get any narcotics for her chronic pain. She is recommended to follow up with her outpatient primary care doctor for further workup of her your discomfort related to her prior surgery and for further management of her chronic pain.) Impression: Primary Impression: Right ear pain Additional Impressions: Right shoulder pain Right hip pain Right ankle pain Disposition: 01 HOME / SELF CARE / HOMELESS Condition: Stable Additional Instructions: You were evaluated today for recurrent pain along your right ear were you had prior surgical repair. Please follow-up with the surgeon who performed your surgery or get a referral by your primary care doctor to be evaluated by an ENT doctor regarding your ear discomfort. Your x-rays that were performed today are all stable in comparison to prior x- rays, no evidence of any new bony pathology. Please follow up with your primary care doctor for further management of your chronic pain. Discharged With: Self Critical Care Note Critical Care Time?: No Stability Stability form required: No Heart Score Heart Score: Heart Score Response (Comments) Value History N/A 0 EKG N/A 0 Age N/A 0 Risk Factors N/A 0 Troponin N/A 0 Total 0 I personally scribed for LITO FLORES MD ([email or web address]) on 03/29/25 at 11:15. E lectronically submitted by Narciso Galarza ([email or web address]). LITO FLORES MD Mar 29, 2025 11:15
[2025-03-29 11:31] LABS: Hematocrit 40.0 % (36.0-46.0); Hemoglobin 13.8 g/dL (12.2-16.2); Mean Corpuscular Hemoglobin 33.5 pg (28.0-32.0); Mean Corpuscular Volume 97.0 fL (80.0-100.0); Nucleated Red Blood Cells % 0.1 %
[2025-03-29 11:39] LABS: Chloride 105 mmol/L (98-107); Potassium 4.1 mmol/L (3.5-5.1); Sodium 141 mmol/L (136-145)
[2025-03-29 11:40] LABS: Anion Gap 8 (5-15); Calcium 10.1 mg/dL (8.7-10.4); Carbon Dioxide 28 mmol/L (20-31)
[2025-03-29 11:45] LABS: BUN/Creatinine Ratio 17.1 (10.0-20.0); Blood Urea Nitrogen 14 mg/dL (9-23); Glucose 87 mg/dL (74-106)
--- NOTE | 2025-03-29 12:21 | DVH ---
CLINICAL INDICATION: right ankle pain, old surgery, eval screws TECHNIQUE: XYXY R ANKLE 2 VIEW XRAY Comparison: XY R ANKLE 2 VIEW XRAY on DOS: 04/03/23, R ANKLE COMPLETE on DOS: 07/19/21, R ANKLE LIMITED XRAY on DOS: 12/26/20 FINDINGS/IMPRESSION: : There is no evidence of acute fracture or dislocation. IM nail fixation spanning the visualized portions of the tibia, tibiotalar joint, and subtalar joint. Distal fibula has been resected. Soft tissues are unremarkable.
--- NOTE | 2025-03-29 12:22 | DVH ---
CLINICAL INDICATION: right hip pain, old injury TECHNIQUE: XYXY R HIP COMPLETE XRAY Comparison: XY R HIP COMPLETE XRAY on DOS: 03/14/25, XY R HIP COMPLETE XRAY on DOS: 07/02/24, XY R HIP COMPLETE XRAY on DOS: 10/11/23, XY R HIP COMPLETE XRAY on DOS: 09/12/23, XY R HIP COMPLETE XRAY on DOS: 04/05/23 FINDINGS/IMPRESSION: : There is no evidence of acute fracture or dislocation. Prior ORIF of the medial right iliac bone, acetabulum, and right superior pubic ramus. Moderate degenerative changes of the right hip. Mild degenerative changes of the left hip. Soft tissues are unremarkable.
--- NOTE | 2025-03-29 12:26 | DVH ---
EXAM: XY R SHOULDER 2+ VIEW XRAY CLINICAL INDICATION: right shoulder pain, old injury TECHNIQUE: XY R SHOULDER 2+ VIEW XRAY Comparison: XY L SHOULDER 2+ VIEW XRAY on DOS: 09/12/22 FINDINGS/IMPRESSION: ORIF right proximal humeral shaft. Chronic left 6 left rib fracture. No acute fracture.
[2025-03-29 12:36] VITALS: BP 139/82; PULSE 78; RESP 18; TEMP 98.3; O2SAT 98
[2025-03-29 12:58] LABS: Urine Protein, UAD Negative (Negative)
== END 2025-03-29 15:11 | disposition home or self-care (01) ==
LOC: ER 10:15
DX: H92.01 Otalgia, right ear (principal); M25.511 Pain in right shoulder; M25.551 Pain in right hip; M25.571 Pain in right ankle and joints of right foot; I10 Essential (primary) hypertension; F41.9 Anxiety disorder, unspecified; F20.9 Schizophrenia, unspecified; J44.9 Chronic obstructive pulmonary disease, unspecified; Z79.899 Other long term (current) drug therapy; Z88.5 Allergy status to narcotic agent; Z79.52 Long term (current) use of systemic steroids; Z79.1 Long term (current) use of non-steroidal anti-inflammatories (NSAID); Z59.00 Homelessness unspecified; Z98.890 Other specified postprocedural states
CPT/HCPCS: 36415; 73030; 73502; 73600; 80048; 81001; 85025; 96372; 99284; J1885